=== PATIENT | female | born 1975 | race Caucasian/White ===

== ENCOUNTER → 2017-12-12 09:06 | Outpatient (REF) | payer SELFPAY | LOC: OM 09:06 | PROVIDERS: PCP Physician Assistant Medical; Visit Provider Nurse Practitioner Family | DX: Z23 Encounter for immunization (principal) ==

== ENCOUNTER 2017-12-16 16:08 | Emergency (ER) | payer OTHER, SELFPAY ==
[2017-12-16 16:13] VITALS: BP 117/54; PULSE 67; RESP 16; TEMP 36.6; O2SAT 99
--- NOTE | 2017-12-16 16:40 | DI.REPORT_ITS ---
SYMPTOM/DIAGNOSIS: HYPEREXTENSION INJURY LEFT THUMB No fracture or dislocation is seen. There are mild degenerative changes of the interphalangeal joints of the thumb. IMPRESSION: No acute abnormality.
--- NOTE | 2017-12-16 16:40 | ED.GENADUL ---
Disposition Clinical Impression: Thumb sprain Disposition: HOME Condition: Fair Instructions: Finger Sprain (ED) Additional Instructions: Encourage rest, ice, elevation. Tylenol and/or ibuprofen as needed for discomfort. Use thumb spica while pain persists. Please follow-up with primary care in 1 week for reevaluation. If you develop new or worsening symptoms seek care urgently once again. Referrals: Casey Price PA [Primary Care Provider] - Forms: Work Release Medical Decision Making - Radiology Data Radiology results: report reviewed X-ray reviewed by radiologist. 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 No acute fracture. No dislocation. Mild soft tissue swelling. No radiopaque foreign body. - Medical Decision Making Patient presents today with chief complaint of left thumb pain after suffering a hyperextension injury while at work. On exam, she is having discomfort with palpation of the MCP joint and proximal to this for the metacarpal. Did not see any discoloration or swelling. She is good range of motion. Ligamentously intact on exam. Sensation is intact. Patient is declining any analgesics at this time. She did take ibuprofen prior to arrival. Will obtain radiographic images to evaluate for possible fracture. X-ray reviewed by radiologist. No acute abnormality is noted. I discussed these findings with the patient. Patient will be placed in a thumb spica to help with discomfort. Encourage rest, ice, elevation. Tylenol and/or ibuprofen as needed for discomfort. Advised that this is a strain. We discussed new/worsening symptoms when to seek care urgently once again. She will follow-up with primary care in 1-2 weeks if symptoms persist. All of her questions and concerns were addressed and she is in agreement this plan. We discussed activities that she should avoid that may cause increased pain. Note for work was given. History of Present Illness - General Chief complaint: Orthopedic Stated complaint: LEFT THUMB INJURY Time Seen by Provider: 12/16/17 16:39 Source: patient, family, RN notes reviewed Mode of arrival: ambulatory Limitations: no limitations - History of Present Illness Initial comments: Patient is a 42-year-old [id number] female presenting today with chief complaint left thumb pain. 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 States that the patient pulled the thumb backwards towards the radius. She denies any altered sensation. Denies other injury the time the incident. Denies any pain in the rest. States the pain is primarily along the base of the thumb extending up towards the wrist. Was given ibuprofen prior to arrival. Is declining any analgesics at this time. - Related Data Citalopram Hydrobromide [Celexa] 40 mg PO DAILY 07/16/12 Clonazepam [Klonopin] 0.5 mg PO PRN PRN 07/16/12 Bupropion HCl [Wellbutrin Sr] 100 mg PO DAILY 02/18/13 Omeprazole [PriLOSEC Otc] 20 mg PO DAILY 04/13/13 Atenolol [Tenormin] 25 mg PO DAILY 11/13/13 Lisinopril 5 mg PO DAILY 06/06/16 Ibuprofen 400 mg PO Q6H PRN tab-cap 09/04/16 Metformin HCl [Glucophage Xr] 500 mg PO HS 09/04/16 Ondansetron [Zofran Odt] 4 mg PO Q6H #12 tab.rapdis 11/23/17 Polyethylene Glycol 3350 [Miralax] 17 gm PO DIRECTED #1 bottle 11/28/17 Pramoxine/Hc Acetate [Proctofoam-Hc Foam] 1 applic NM TID PRN PRN #1 can 11/28/17 Psyllium Husk/Aspartame [Metamucil Sugar-Free Powder] 1 tbs PO DAILY #1 bottle 11/28/17 Allergies Allergy/AdvReac Type Severity Reaction Status Date / Time azithromycin Allergy Intermediate Hives Unverified 11/26/17 16:00 latex Allergy Intermediate Skin Rash Unverified 11/26/17 16:00 adhesive Allergy Mild Hives Unverified 11/26/17 16:00 amoxicillin trihydrate AdvReac Intermediate itching Unverified 11/26/17 16:00 [From Augmentin] potassium clavulanate AdvReac Intermediate itching Unverified 11/26/17 16:00 [From Augmentin] Review of Systems Constitutional: no symptoms reported. denies: chills, fever Respiratory: no symptoms reported Musculoskeletal: as per HPI Skin: as per HPI Neurological: as per HPI Past Medical History - Past Medical History Medical history: GERD, hypertension pre-diabetes, diverticulitis Surgical history: cholecystectomy, hysterectomy, other (knee surgery) Family history: no significant family history - Social History Alcohol use: occasionally Drug use: none General Exam - General Limitations: no limitations General appearance: alert, in no apparent distress - Eye Eye exam: Present: normal apperance - Respiratory Respiratory exam: Absent: respiratory distress - Extremities Exam Extremities exam: Present: full ROM, tenderness, normal capillary refill. Absent: normal inspection (Exam the patient's left upper extremity is significant for pain with palpation over the MCP joint and along the first metacarpal. No snuffbox tenderness. No pain more distal on the thumb with palpation. She has good range of motion of her joints. Good strength testing against resistance. Negative Dion's test. No pain with movement of the wrist. Sensation is intact. No swelling or discoloration is noted.) - Neurological Exam Neurological exam: Present: alert, normal gait. Absent: motor sensory deficit - Psychiatric Psychiatric exam: Present: normal affect, normal mood - Skin Skin exam: Present: warm, dry, normal color Course Vital Signs - 24 hr 12/16/17 16:13 Temperature 36.6 C Pulse 67 Respiratory 16 Rate Blood Pressure 117/54 Pulse Oximetry 99
--- NOTE | 2017-12-16 17:11 | DI.VRAD_ITS ---
EXAM: XR Left Finger(s), 2 or More Views CLINICAL HISTORY: 42 years old, female; Pain; Finger(s); Left; Patient HX: Lt thumb pain after hyperextension injury. TECHNIQUE: Frontal, lateral and oblique views of finger(s) of the left hand. COMPARISON: CR - LEFT HAND LIMITED 2016-08-18 08:53 FINDINGS: Bones/joints: Mild degenerative arthrosis of the thumb interphalangeal joint. No acute fracture. No dislocation. Soft tissues: Mild swelling of the thumb soft tissues. No radiopaque foreign body. IMPRESSION: No fracture. Dictated and Authenticated by: Doe Denson MD. Ordering:PARVEEN SPARKS MD
== END 2017-12-16 18:00 | disposition home or self-care (01) ==
LOC: ER 12-07 23:41
PROVIDERS: Emergency Provider Physician Assistant; PCP Physician Assistant Medical
DX: S63.642A Sprain of metacarpophalangeal joint of left thumb, initial encounter (principal); X50.1XXA Overexertion from prolonged static or awkward postures, initial encounter; Y99.0 Civilian activity done for income or pay; I10 Essential (primary) hypertension
CPT/HCPCS: 29125; 99284; 73140; 99282; L3807

== ENCOUNTER 2018-01-25 07:12 | Emergency (ER) | payer SELFPAY ==
[2018-01-25 07:21] VITALS: BP 181/96; PULSE 99; RESP 22; TEMP 36.5; O2SAT 95
[2018-01-25 07:29] VITALS: RESP 22
--- NOTE | 2018-01-25 08:10 | W.ED.GENAD ---
Discharge Plan Disposition Patient Disposition: HOME Discharge Details Chief Complaint: GenMedical Clinical Impression: Viral illness Primary Care Provider: Casey Price ED Provider: Burton Mackey Home Meds and New Rx's Prescriptions: Continue metformin [Glucophage XR] 500 MG tablet extended release 24 hr 500 mg PO HS RF: 0 citalopram [Celexa] 40 MG tablet 40 mg PO DAILY RF: 0 clonazepam [Klonopin] 0.5 MG tablet 0.5 mg PO PRN PRNRF: 0 bupropion HCl [Wellbutrin SR] 100 MG tablet extended release 12 hr 100 mg PO DAILY RF: 0 omeprazole magnesium [Prilosec OTC] 20 MG tablet,delayed release (DR/EC) 20 mg PO DAILY RF: 0 atenolol 25 MG tablet 25 mg PO DAILY RF: 0 lisinopril 5 MG tablet 5 mg PO DAILY RF: 0 hydrocortisone-pramoxine [Proctofoam HC] 10 GM foam 1 applic HI TID PRN PRN (Reason: Hemorrhoids) Qty: 1 RF: 3 psyllium husk (aspartame) [Metamucil Sugar-Free (aspart)] 283 GM powder 1 tbs PO DAILY Qty: 1 RF: 6 Discharge Instructions Instructions: Viral Syndrome (ED) Additional Instructions: Please take your medications as prescribed. Be sure to take her blood pressure medicine today as soon as you get home. Plenty of fluid and allow for plenty of rest of the next few days. Take ibuprofen and/or Tylenol --dose according to label. Please contact your primary care physician to arrange follow-up. Return to the ER for any worsening or new concerning symptoms. Referrals: Casey Price PA [Primary Care Provider] - Discharge Data Discharge Date/Time-TO BE ENTERED AT DEPARTURE: 01/25/18 08:47 Medical Decision Making 42-year-old female here myalgias, chills, sore throat, sinus congestion, diarrhea. No signs of focal bacterial infection on exam. Suspect viral illness. Encouraged to drink plenty of fluids and allow for plenty of rest. She was advised to take Tylenol and ibuprofen. Patient is hypertensive. She has not taken her prescribed antihypertensives today. She was instructed to take these when she gets home. HPI General Mode of arrival: ambulatory. Date/Time Provider Initiated Documentation: 01/25/18 08:09. Limitations to Documentation: no limitations. Information obtained by: patient. HPI Narrative: 42yo f here with chief complaint of generally not feeling well. Symptoms moderate to severe. No modifiers. Patient notes myalgias, diffuse body, sore throat, sinus congestion, chills, diarrhea. Symptoms have persisted for the past 3 days. Denies cough. Patient requesting work note. Patient did not take antihypertensive medication today. Related Data Home Medications Medication Instructions Recorded Confirmed citalopram [Celexa] 40 mg PO DAILY 07/16/12 01/25/18 clonazepam [Klonopin] 0.5 mg PO PRN PRN 07/16/12 12/16/17 bupropion HCl [Wellbutrin SR] 100 mg PO DAILY 02/18/13 01/25/18 omeprazole magnesium [Prilosec OTC] 20 mg PO DAILY 04/13/13 01/25/18 atenolol 25 mg PO DAILY 11/13/13 01/25/18 lisinopril 5 mg PO DAILY 06/06/16 01/25/18 metformin [Glucophage XR] 500 mg PO HS 09/04/16 01/25/18 hydrocortisone-pramoxine 1 applic HI TID PRN PRN #1 can 11/28/17 01/25/18 [Proctofoam HC] psyllium husk (aspartame) 1 tbs PO DAILY #1 bottle 11/28/17 01/25/18 [Metamucil Sugar-Free (aspart)] Previous Rx's Medication Instructions Recorded hydrocortisone-pramoxine 1 applic HI TID PRN PRN #1 can 11/28/17 [Proctofoam HC] psyllium husk (aspartame) 1 tbs PO DAILY #1 bottle 11/28/17 [Metamucil Sugar-Free (aspart)] Allergies Allergy/AdvReac Type Severity Reaction Status Date / Time azithromycin Allergy Intermediate Hives Unverified 11/26/17 16:00 latex Allergy Intermediate Skin Rash Unverified 11/26/17 16:00 adhesive Allergy Mild Hives Unverified 11/26/17 16:00 amoxicillin trihydrate AdvReac Intermediate itching Unverified 11/26/17 16:00 [From Augmentin] potassium clavulanate AdvReac Intermediate itching Unverified 11/26/17 16:00 [From Augmentin] General Stated Complaint: GenMedical KARI: 4 Review of Systems Review of Systems All systems reviewed & are unremarkable except as noted in HPI and below ENT Reports as per HPI Respiratory Reports system reviewed and no additional complaints, except as docu PFSH Medical History Anxiety Cholesteatoma of left ear DM (diabetes mellitus), type 2 Depression Essential hypertension Neck pain on right side Ovarian cyst Shoulder pain, right Syncope Social History Smoking/Tobacco Use Status: Former Tobacco Use Surgical History Arthroplasty of knee Cholecystectomy Vaginal hysterectomy Exam Const General: cooperative and no acute distress HENMT Head: normocephalic and atraumatic Mouth: moist mucous membranes Throat: tonsils normal, uvula midline, no peritonsillar masses and posterior oropharynx abnormal erythema; no edema and no exudates Eyes Conjunctivae: normal conjunctivae Sclera: normal sclerae EOM: EOM intact bilaterally Neck Neck: trachea midline and supple Resp Auscultation: clear to auscultation bilaterally, no rales, no rhonchi and no wheezes Cardio Jugular venous pressure: no JVD Rate: regular rate and not tachycardic Rhythm: regular rhythm GI Palpation: soft, not firm, no guarding, no masses, not rigid and nontender Skin General skin exam: no rashes or lesions noted Neuro General: alert, awake, oriented x3 and tone normal Extrem General: no edema Psych Appearance: grossly normal Mental Status: mental status grossly normal Speech and Movement: speech and movement normal Course Vital Signs Temperature 36.5 C 01/25/18 07:21 Pulse 99 H 01/25/18 07:21 Respiratory Rate 22 01/25/18 07:21 Blood Pressure 181/96 H 01/25/18 07:21 Pulse Oximetry 95 01/25/18 07:21 Temperature 36.5 C 01/25/18 07:21 Pulse 99 H 01/25/18 07:21 Respiratory Rate 22 01/25/18 07:29 Blood Pressure 181/96 H 01/25/18 07:21 Pulse Oximetry 95 01/25/18 07:21
--- NOTE | 2018-01-25 08:37 | ED.GENADUL_ITS ---
Discharge Plan Disposition Patient Disposition: HOME Discharge Details Chief Complaint: GenMedical Clinical Impression: Viral illness Primary Care Provider: Casey Price ED Provider: Burton Mackey Home Meds and New Rx's Prescriptions: Continue metformin [Glucophage XR] 500 MG tablet extended release 24 hr 500 mg PO HS RF: 0 citalopram [Celexa] 40 MG tablet 40 mg PO DAILY RF: 0 clonazepam [Klonopin] 0.5 MG tablet 0.5 mg PO PRN PRNRF: 0 bupropion HCl [Wellbutrin SR] 100 MG tablet extended release 12 hr 100 mg PO DAILY RF: 0 omeprazole magnesium [Prilosec OTC] 20 MG tablet,delayed release (DR/EC) 20 mg PO DAILY RF: 0 atenolol 25 MG tablet 25 mg PO DAILY RF: 0 lisinopril 5 MG tablet 5 mg PO DAILY RF: 0 hydrocortisone-pramoxine [Proctofoam HC] 10 GM foam 1 applic [place] TID PRN PRN (Reason: Hemorrhoids) Qty: 1 RF: 3 psyllium husk (aspartame) [Metamucil Sugar-Free (aspart)] 283 GM powder 1 tbs PO DAILY Qty: 1 RF: 6 Discharge Instructions Instructions: Viral Syndrome (ED) Additional Instructions: Please take your medications as prescribed. Be sure to take her blood pressure medicine today as soon as you get home. Plenty of fluid and allow for plenty of rest of the next few days. Take ibuprofen and/or Tylenol --dose according to label. Please contact your primary care physician to arrange follow-up. Return to the ER for any worsening or new concerning symptoms. Referrals: Casey Price PA [Primary Care Provider] - Discharge Data Discharge Date/Time-TO BE ENTERED AT DEPARTURE: 01/25/18 08:47 Medical Decision Making 42-year-old female here myalgias, chills, sore throat, sinus congestion, diarrhea. No signs of focal bacterial infection on exam. Suspect viral illness. Encouraged to drink plenty of fluids and allow for plenty of rest. She was advised to take Tylenol and ibuprofen. Patient is hypertensive. She has not taken her prescribed antihypertensives today. She was instructed to take these when she gets home. HPI General Mode of arrival: ambulatory . Date/Time Provider Initiated Documentation: 01/25/18 08:09 . Limitations to Documentation: no limitations . Information obtained by: patient . HPI Narrative: 42yo f here with chief complaint of generally not feeling well. Symptoms moderate to severe. No modifiers. Patient notes myalgias, diffuse body , sore throat, sinus congestion, chills, diarrhea. Symptoms have persisted for the past 3 days. Denies cough. Patient requesting work note. Patient did not take antihypertensive medication today. Related Data Home Medications Medication Instructions Recorded Confirmed citalopram [Celexa] 40 mg PO DAILY 07/16/12 01/25/18 clonazepam [Klonopin] 0.5 mg PO PRN PRN 07/16/12 12/16/17 bupropion HCl [Wellbutrin SR] 100 mg PO DAILY 02/18/13 01/25/18 omeprazole magnesium [Prilosec OTC] 20 mg PO DAILY 04/13/13 01/25/18 atenolol 25 mg PO DAILY 11/13/13 01/25/18 lisinopril 5 mg PO DAILY 06/06/16 01/25/18 metformin [Glucophage XR] 500 mg PO HS 09/04/16 01/25/18 hydrocortisone-pramoxine 1 applic [place] TID PRN PRN #1 can 11/28/17 01/25/18 [Proctofoam HC] psyllium husk (aspartame) 1 tbs PO DAILY #1 bottle 11/28/17 01/25/18 [Metamucil Sugar-Free (aspart)] Previous Rx's Medication Instructions Recorded hydrocortisone-pramoxine 1 applic MI TID PRN PRN #1 can 11/28/17 [Proctofoam HC] psyllium husk (aspartame) 1 tbs PO DAILY #1 bottle 11/28/17 [Metamucil Sugar-Free (aspart)] Allergies Allergy/AdvReac Type Severity Reaction Status Date / Time azithromycin Allergy Intermediate Hives Unverified 11/26/17 16:00 latex Allergy Intermediate Skin Rash Unverified 11/26/17 16:00 adhesive Allergy Mild Hives Unverified 11/26/17 16:00 amoxicillin trihydrate AdvReac Intermediate itching Unverified 11/26/17 16:00 [From Augmentin] potassium clavulanate AdvReac Intermediate itching Unverified 11/26/17 16:00 [From Augmentin] General Stated Complaint: GenMedical KARI: 4 Review of Systems Review of Systems All systems reviewed & are unremarkable except as noted in HPI and below ENT Reports as per HPI Respiratory Reports system reviewed and no additional complaints, except as docu PFSH Medical History Anxiety Cholesteatoma of left ear DM (diabetes mellitus), type 2 Depression Essential hypertension Neck pain on right side Ovarian cyst Shoulder pain, right Syncope Social History Smoking/Tobacco Use Status: Former Tobacco Use Surgical History Arthroplasty of knee Cholecystectomy Vaginal hysterectomy Exam Const General: cooperative and no acute distress HENMT Head: normocephalic and atraumatic Mouth: moist mucous membranes Throat: tonsils normal, uvula midline, no peritonsillar masses and posterior oropharynx abnormal erythema; no edema and no exudates Eyes Conjunctivae: normal conjunctivae Sclera: normal sclerae EOM: EOM intact bilaterally Neck Neck: trachea midline and supple Resp Auscultation: clear to auscultation bilaterally, no rales, no rhonchi and no wheezes Cardio Jugular venous pressure: no JVD Rate: regular rate and not tachycardic Rhythm: regular rhythm GI Palpation: soft, not firm, no guarding, no masses, not rigid and nontender Skin General skin exam: no rashes or lesions noted Neuro General: alert, awake, oriented x3 and tone normal Extrem General: no edema Psych Appearance: grossly normal Mental Status: mental status grossly normal Speech and Movement: speech and movement normal Course Vital Signs Temperature 36.5 C 01/25/18 07:21 Pulse 99 H 01/25/18 07:21 Respiratory Rate 22 01/25/18 07:21 Blood Pressure 181/96 H 01/25/18 07:21 Pulse Oximetry 95 01/25/18 07:21 Temperature 36.5 C 01/25/18 07:21 Pulse 99 H 01/25/18 07:21 Respiratory Rate 22 01/25/18 07:29 Blood Pressure 181/96 H 01/25/18 07:21 Pulse Oximetry 95 01/25/18 07:21
[2018-01-25] MEDS: Ibuprofen 600 MG TAB PO (08:45)
[2018-01-25] MEDS: Acetaminophen 325 MG TAB 650 MG PO (08:45)
== END 2018-01-25 08:47 | disposition home or self-care (01) ==
PROVIDERS: Emergency Provider Student in an Organized Health Care Education/Training Program; PCP Physician Assistant Medical
DX: M79.1 Myalgia (principal); R68.83 Chills (without fever); R09.81 Nasal congestion; B34.9 Viral infection, unspecified; J02.8 Acute pharyngitis due to other specified organisms; E11.9 Type 2 diabetes mellitus without complications; Z79.84 Long term (current) use of oral hypoglycemic drugs; I10 Essential (primary) hypertension
CPT/HCPCS: 80053; 99282; 85025

== ENCOUNTER 2018-02-03 20:40 | Emergency (ER) | payer OTHER, SELFPAY ==
[2018-02-03 20:49] VITALS: BP 134/73; PULSE 70; RESP 20; TEMP 37.1; O2SAT 94
--- NOTE | 2018-02-03 21:16 | ED.GENADUL_ITS ---
Discharge Plan Disposition Patient Disposition: HOME Condition: Stable Discharge Details Chief Complaint: RespSymp Clinical Impression: Acute sinusitis, Cough, Laryngitis Primary Care Provider: Casey Price ED Provider: Nova Ennis Home Meds and New Rx's Prescriptions: New doxycycline monohydrate 100 mg capsule 100 mg PO BID 7 Days Qty: 14 RF: 0 No Action metformin [Glucophage XR] 500 MG tablet extended release 24 hr 500 mg PO HS RF: 0 citalopram [Celexa] 40 MG tablet 40 mg PO DAILY RF: 0 clonazepam [Klonopin] 0.5 MG tablet 0.5 mg PO PRN PRNRF: 0 bupropion HCl [Wellbutrin SR] 100 MG tablet extended release 12 hr 100 mg PO DAILY RF: 0 omeprazole magnesium [Prilosec OTC] 20 MG tablet,delayed release (DR/EC) 20 mg PO DAILY RF: 0 atenolol 25 MG tablet 25 mg PO DAILY RF: 0 lisinopril 5 MG tablet 5 mg PO DAILY RF: 0 hydrocortisone-pramoxine [Proctofoam HC] 10 GM foam 1 applic MI TID PRN PRN (Reason: Hemorrhoids) Qty: 1 RF: 3 psyllium husk (aspartame) [Metamucil Sugar-Free (aspart)] 283 GM powder 1 tbs PO DAILY Qty: 1 RF: 6 Discharge Instructions Instructions: Sinusitis (ED), Laryngitis (ED), Acute Cough (ED) Additional Instructions: Drink plenty of fluids and get plenty of rest. Alternate Tylenol and Motrin as needed and directed for pain. Follow-up with your scheduled appointment with your primary care doctor in 2 days for reevaluation. Return to the emergency department any worsening or new concerning symptoms. Discharge Data Discharge Physician: Nova Ennis Medical Decision Making 42yo F with a history of diabetes, GERD who presents for green nasal discharge, cough with green sputum, chest congestion, sinus congestion, sore throat and losing voice over the past 12 days. Seen here 1 week ago and diagnosed with viral illness and given no meds. Has been taking Sudafed and Robitussin without relief. Normal heart rate, respirations, afebrile, oxygen saturation 94%. Patient appears nontoxic and in no acute distress. Airway intact and speaking in full sentences. Lungs clear to auscultation without wheezing or rhonchi. She has bilateral frontal and maxillary sinus tenderness to palpation. Pharynx normal. No lymphadenopathy. No submandibular swelling, drooling. No meningeal signs. Appears most likely consistent with sinusitis, with postnasal drip causing possible chest congestion, laryngitis. Will give a dose of doxycycline and Decadron here, 2 doses of Robitussin with codeine for home, and as well as a prescription for doxycycline. She has a follow-up appointment with her primary care doctor in 2 days. She is instructed to keep this appointment for reevaluation and to return here if worse. HPI General Mode of arrival: ambulatory . Date/Time Provider Initiated Documentation: 02/03/18 20:41 . Limitations to Documentation: no limitations . Information obtained by: patient . HPI Narrative: Patient is a 42-year-old female presents with green nasal discharge, productive cough with green sputum, chest congestion, sinus congest and sore throat, hoarse voice over the past 10-12 days. Patient states the sinus congestion is bothering her the most. She states she was here last Sunday and diagnosed with viral illness and not sent home with any medications. She admits to occasional chills but denies any fever. She denies neck pain or shortness of breath. She denies any recent antibiotics. She states her sugars have been between 150 and 170. She states she has been eating and drinking but slightly less than usual since she has been sick. She denies any relief with Sudafed and Robitussin. Past medical history: Anxiety, diabetes, depression, hypertension, GERD. Surgical history: Knee arthroscopy, cholecystectomy, hysterectomy Social history: Occasional alcohol, denies tobacco or drugs Medications: See list Allergies: Azithromycin. Potassium clavulante, states she has tolerated amoxicillin in the past Related Data Home Medications Medication Instructions Recorded Confirmed citalopram [Celexa] 40 mg PO DAILY 07/16/12 01/25/18 clonazepam [Klonopin] 0.5 mg PO PRN PRN 07/16/12 12/16/17 bupropion HCl [Wellbutrin SR] 100 mg PO DAILY 02/18/13 01/25/18 omeprazole magnesium [Prilosec OTC] 20 mg PO DAILY 04/13/13 01/25/18 atenolol 25 mg PO DAILY 11/13/13 01/25/18 lisinopril 5 mg PO DAILY 06/06/16 01/25/18 metformin [Glucophage XR] 500 mg PO HS 09/04/16 01/25/18 hydrocortisone-pramoxine 1 applic MI TID PRN PRN #1 can 11/28/17 01/25/18 [Proctofoam HC] psyllium husk (aspartame) 1 tbs PO DAILY #1 bottle 11/28/17 01/25/18 [Metamucil Sugar-Free (aspart)] doxycycline monohydrate 100 mg PO BID 7 Days #14 cap 02/03/18 Previous Rx's Medication Instructions Recorded hydrocortisone-pramoxine 1 applic MI TID PRN PRN #1 can 11/28/17 [Proctofoam HC] psyllium husk (aspartame) 1 tbs PO DAILY #1 bottle 11/28/17 [Metamucil Sugar-Free (aspart)] doxycycline monohydrate 100 mg PO BID 7 Days #14 cap 02/03/18 Allergies Allergy/AdvReac Type Severity Reaction Status Date / Time azithromycin Allergy Intermediate Hives Unverified 11/26/17 16:00 latex Allergy Intermediate Skin Rash Unverified 11/26/17 16:00 adhesive Allergy Mild Hives Unverified 11/26/17 16:00 amoxicillin trihydrate AdvReac Intermediate itching Unverified 11/26/17 16:00 [From Augmentin] potassium clavulanate AdvReac Intermediate itching Unverified 11/26/17 16:00 [From Augmentin] General Stated Complaint: RespSymp KARI: 4 Review of Systems Review of Systems All systems reviewed & are unremarkable except as noted in HPI and below Constitutional Reports chills, Denies excessive sweating, Denies fatigue, Denies fever(s), Denies weakness and Denies weight loss Eyes Reports system reviewed and no additional complaints, except as docu and Denies blurry vision ENT Denies vertigo, Denies dizziness, Denies otalgia, Reports nasal congestion, Reports nasal discharge, Denies neck pain, Reports sinus pain, Reports sinus pressure, Reports sore throat and Denies throat swelling Cardiovascular Denies chest pain, Denies syncope, Denies rapid heart rate and Denies dyspnea Respiratory Denies dyspnea Gastrointestinal Denies abdominal pain, Denies diarrhea and Denies vomiting Genitourinary Denies hematuria, Denies dysuria and Denies flank pain Musculoskeletal Denies back pain, Denies joint swelling and Denies neck pain Integumentary/Breasts Denies lesions and Denies rash Neurologic Denies behavioral changes, Denies confusion, Denies vertigo, Denies dizziness, Denies syncope and Denies weakness Psychiatric Denies behavioral changes, Denies confusion and Denies depression Endocrine Denies excessive sweating and Denies fatigue Hematologic/Lymphatic Denies easy bruising and Denies lymphadenopathy Allergic/Immunologic Denies throat swelling [facility] Medical History Anxiety Cholesteatoma of left ear DM (diabetes mellitus), type 2 Depression Essential hypertension Neck pain on right side Ovarian cyst Shoulder pain, right Syncope Social History Smoking/Tobacco Use Status: Former Tobacco Use Surgical History Arthroplasty of knee Cholecystectomy Vaginal hysterectomy Exam Const General: cooperative and no acute distress Orientation: alert and awake HENMT Head: normal to inspection Ears: hearing grossly normal bilaterally, external ears normal and TM's normal bilaterally General nose exam: external nose normal Face and sinus: sinus tenderness frontal and maxillary Mouth: oral mucosae normal Teeth and gingiva: dentition normal Throat: posterior oropharynx normal, uvula midline, normal tonsils and no peritonsillar masses Eyes General: appearance normal, both eyes and all related structures Eyelids: eyelids normal Conjunctivae: other (mild injection b/l. No discharge) Pupils: PERRL EOM: EOM intact bilaterally Neck Neck: normal visual inspection Lymphatic: no lymphadenopathy noted Chest Chest: normal inspection of the chest Resp Effort & Inspection: normal respiratory effort and able to speak in complete sentences Auscultation: clear to auscultation bilaterally, no rhonchi and no wheezes Cardio Rate: regular rate Rhythm: regular rhythm GI Inspection: normal to inspection Skin General skin exam: no rashes or lesions noted Neuro General: alert and awake Cognition: normal cognition Speech: speech normal Gait: normal gait Motor: muscle tone normal throughout Sensory Exam: no sensory deficits noted Extrem General: normal to inspection, full ROM, normal capillary refill and no edema Psych Appearance: grossly normal Mental Status: mental status grossly normal Speech and Movement: speech and movement normal Affect: normal affect Thought Process: normal Course Vital Signs Temperature 98.8 F 02/03/18 20:49 Pulse 70 02/03/18 20:49 Respiratory Rate 20 02/03/18 20:49 Blood Pressure 134/73 02/03/18 20:49 Pulse Oximetry 94 L 02/03/18 20:49 Temperature 98.8 F 02/03/18 20:49 Temperature Source Temporal Artery Scan 02/03/18 20:49 Pulse 70 02/03/18 20:49 Respiratory Rate 20 02/03/18 20:49 Respiratory Effort Labored 02/03/18 20:52 Respiratory Depth Shallow 02/03/18 20:52 Blood Pressure 134/73 02/03/18 20:49 Blood Pressure Position Supine 02/03/18 20:49 Pulse Oximetry 94 L 02/03/18 20:49 Oxygen Delivery Method Room Air 02/03/18 20:49 Oxygen Flow Rate 0 02/03/18 20:49 Pain Level 5 02/03/18 20:49
[2018-02-03] MEDS: guaiFENesin/CODEINE PHOSPHATE 10 ML CUP PO (21:29)
[2018-02-03] MEDS: Dexamethasone 10 MG/ML VIAL PO (21:29)
[2018-02-03] MEDS: Doxycycline Hyclate 100 MG CAP PO (21:29)
[2018-02-03 22:02] VITALS: BP 122/80; PULSE 88; RESP 18; TEMP 36.8; O2SAT 99
== END 2018-02-03 22:03 | disposition home or self-care (01) ==
PROVIDERS: Emergency Provider Physician Assistant; PCP Physician Assistant Medical
DX: R05 Cough (principal); J01.90 Acute sinusitis, unspecified; J04.0 Acute laryngitis; I10 Essential (primary) hypertension; E11.9 Type 2 diabetes mellitus without complications; Z79.84 Long term (current) use of oral hypoglycemic drugs
CPT/HCPCS: 99283; J1100

== ENCOUNTER 2018-03-05 12:29 | Emergency (ER) | payer OTHER, SELFPAY ==
[2018-03-05 12:40] VITALS: BP 153/99; PULSE 77; RESP 16; TEMP 36.7; O2SAT 97
--- NOTE | 2018-03-05 12:47 | ED.GENADUL_ITS ---
Discharge Plan Disposition Patient Disposition: HOME Condition: Good Discharge Details Chief Complaint: Nk/Back Pain Clinical Impression: Lumbar strain Primary Care Provider: Casey Price ED Provider: Jarret Brown Home Meds and New Rx's Prescriptions: New cyclobenzaprine 10 mg tablet 10 mg PO TID PRN (Reason: muscle spasm) Qty: 20 RF: 0 gabapentin 300 mg capsule 300 mg PO TID 10 Days Qty: 30 RF: 0 Continue metformin [Glucophage XR] 500 MG tablet extended release 24 hr 500 mg PO HS RF: 0 citalopram [Celexa] 40 MG tablet 40 mg PO DAILY RF: 0 clonazepam [Klonopin] 0.5 MG tablet 0.5 mg PO PRN PRNRF: 0 bupropion HCl [Wellbutrin SR] 100 MG tablet extended release 12 hr 150 mg PO DAILY RF: 0 omeprazole magnesium [Prilosec OTC] 20 MG tablet,delayed release (DR/EC) 20 mg PO DAILY RF: 0 atenolol 25 MG tablet 25 mg PO DAILY RF: 0 lisinopril 5 MG tablet 5 mg PO DAILY RF: 0 hydrocortisone-pramoxine [Proctofoam HC] 10 GM foam 1 applic GA TID PRN PRN (Reason: Hemorrhoids) Qty: 1 RF: 3 psyllium husk (aspartame) [Metamucil Sugar-Free (aspart)] 283 GM powder 1 tbs PO DAILY Qty: 1 RF: 6 Discharge Instructions Instructions: Low Back Strain (ED) Additional Instructions: you can take 1000mg tylenol and 600mg ibuprofen every 6 hours for pain as needed if you have high fevers or difficulty urinating return to the emergency department follow up with your primary care provider within 1-2 weeks Discharge Data Discharge Physician: Jarret Brown Medical Decision Making 42 yo female comes in with left lower back pain since Sunday morning. 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 She dneies any trauma, noticed pain when she was getting out of bed on Sunday with shooting pain down the left leg. Denies fevers, ivdu, back surgeries, difficulty urinating. SHe has no saddle anesthesia on exam, pain with palpation to the left lower back with normal intact distal sensation and pulses. I suspect lumbar strain vs muscle spasm vs disc herniation. No evidence of cauda equina or sea on hx or PE so do not feel emergent MRI indicated and no abdominal pain so doubt intrabdominal pathology requiring ct imaging at this time. Will start muscle relaxers and gabapentin and advised f/u with pcp with return precautions Differential Diagnosis lumbar strain, sciatica, disc herniation HPI General Mode of arrival: ambulatory . Date/Time Provider Initiated Documentation: 03/05/18 12:32 . Limitations to Documentation: no limitations . Information obtained by: patient . History of Present Illness 42 year old F presents to the emergency department with the chief complaint of back pain, described as moderate, with intensity rated at 6. Quality is described as aching, and is localized to the back and left. Patient reports no radiation. Patient started experiencing this day(s) (2) and it has been constant. No relieving factors improve symptom(s), No exacerbating factors reported . Patient notes no other symptoms.. Patient did receive the following treatments prior to arrival, NSAID Related Data Home Medications Medication Instructions Recorded Confirmed citalopram [Celexa] 40 mg PO DAILY 07/16/12 03/05/18 clonazepam [Klonopin] 0.5 mg PO PRN PRN 07/16/12 03/05/18 bupropion HCl [Wellbutrin SR] 150 mg PO DAILY 02/18/13 03/05/18 omeprazole magnesium [Prilosec OTC] 20 mg PO DAILY 04/13/13 03/05/18 atenolol 25 mg PO DAILY 11/13/13 03/05/18 lisinopril 5 mg PO DAILY 06/06/16 03/05/18 metformin [Glucophage XR] 500 mg PO HS 09/04/16 03/05/18 hydrocortisone-pramoxine 1 applic GA TID PRN PRN #1 can 11/28/17 01/25/18 [Proctofoam HC] psyllium husk (aspartame) 1 tbs PO DAILY #1 bottle 11/28/17 03/05/18 [Metamucil Sugar-Free (aspart)] cyclobenzaprine 10 mg PO TID PRN #20 tab 03/05/18 gabapentin 300 mg PO TID 10 Days #30 cap 03/05/18 Previous Rx's Medication Instructions Recorded hydrocortisone-pramoxine 1 applic GA TID PRN PRN #1 can 11/28/17 [Proctofoam HC] psyllium husk (aspartame) 1 tbs PO DAILY #1 bottle 11/28/17 [Metamucil Sugar-Free (aspart)] cyclobenzaprine 10 mg PO TID PRN #20 tab 03/05/18 gabapentin 300 mg PO TID 10 Days #30 cap 03/05/18 Allergies Allergy/AdvReac Type Severity Reaction Status Date / Time azithromycin Allergy Intermediate Hives Unverified 03/05/18 12:43 latex Allergy Intermediate Skin Rash Unverified 03/05/18 12:43 adhesive Allergy Mild Hives Unverified 03/05/18 12:43 amoxicillin trihydrate AdvReac Intermediate itching Unverified 03/05/18 12:43 [From Augmentin] potassium clavulanate AdvReac Intermediate itching Unverified 03/05/18 12:43 [From Augmentin] General Stated Complaint: Nk/Back Pain KARI: 4 Review of Systems Review of Systems All systems reviewed & are unremarkable except as noted in HPI and below Constitutional Denies chills, Denies fever(s) and Denies weakness Eyes Denies loss of vision ENT Denies change in voice Cardiovascular Denies chest pain and Denies dyspnea Respiratory Denies dyspnea Gastrointestinal Denies abdominal pain, Denies nausea and Denies vomiting Genitourinary Denies dysuria Musculoskeletal Denies joint swelling Integumentary/Breasts Denies rash Neurologic Denies loss of vision and Denies weakness Psychiatric Denies depression Endocrine Denies cold intolerance and Denies heat intolerance Allergic/Immunologic Denies urticaria [facility] Medical History Anxiety Cholesteatoma of left ear DM (diabetes mellitus), type 2 Depression Essential hypertension Neck pain on right side Ovarian cyst Shoulder pain, right Syncope Social History Smoking/Tobacco Use Status: Former Tobacco Use Surgical History Arthroplasty of knee Cholecystectomy Vaginal hysterectomy Exam Const General: no acute distress Orientation: alert HENMT Head: normal to inspection Ears: external ears normal General nose exam: external nose normal Mouth: moist mucous membranes Eyes General: appearance normal, both eyes and all related structures Neck Neck: normal visual inspection Resp Effort & Inspection: normal respiratory effort and able to speak in complete sentences Cardio Rate: regular rate Back/Spine/Pelvis Back: no CVA tenderness Thoracic/Lumbar Spine: thoracic and lumbar spine normal to inspection Skin General skin exam: no rashes or lesions noted Neuro General: alert and oriented x3 Extrem General: normal to inspection Psych Mental Status: mental status grossly normal Course Vital Signs Temperature 36.7 C 03/05/18 12:40 Pulse 77 03/05/18 12:40 Respiratory Rate 16 03/05/18 12:40 Blood Pressure 153/99 H 03/05/18 12:40 Pulse Oximetry 97 03/05/18 12:40 Temperature 36.7 C 03/05/18 12:40 Temperature Source Temporal Artery Scan 03/05/18 12:40 Pulse 77 03/05/18 12:40 Respiratory Rate 16 03/05/18 12:40 Blood Pressure 153/99 H 03/05/18 12:40 Blood Pressure Position Sitting 03/05/18 12:40 Pulse Oximetry 97 03/05/18 12:40 Pain Level 9 03/05/18 12:40
[2018-03-05] MEDS: Cyclobenzaprine 10 MG TAB PO (13:10)
== END 2018-03-05 13:16 | disposition home or self-care (01) ==
PROVIDERS: Emergency Provider Emergency Medicine; PCP Physician Assistant Medical
DX: S39.012A Strain of muscle, fascia and tendon of lower back, initial encounter (principal); X50.0XXA Overexertion from strenuous movement or load, initial encounter
CPT/HCPCS: 99283

== ENCOUNTER 2018-07-17 08:29 | Outpatient (CLI) | payer BC, SELFPAY ==
--- NOTE | 2018-07-17 06:00 | DI.RAD_ITS ---
SYMPTOM/DIAGNOSIS: CERVICAL RADICULOPATHY, CERVICAL EPIDURAL STEROID INJECTION C-ARM: Fluoroscopy Time: 31 seconds Images submitted from the pain clinic demonstrate needle position over the midline in the cervical spine in conjunction with an epidural steroid injection carried out by Dr. Bowles. Please see the procedure report for further information.
[2018-07-17 08:51] VITALS: BP 114/86; PULSE 73; RESP 18; TEMP 36; O2SAT 96
[2018-07-17] MEDS: Lactated Ringers 1,000 ML 80 ML IV (09:20)
[2018-07-17] MEDS: Midazolam 2 MG/2 ML VIAL IVP (09:21)
[2018-07-17] MEDS: methylPREDNISolone ACETATE 40 MG/ML VIAL IJ (09:27)
[2018-07-17] MEDS: Omnipaque 240 MG/ML 50 ML BTL IJ (09:28)
[2018-07-17 09:31] VITALS: BP 126/86; PULSE 67; RESP 19; O2SAT 98
--- NOTE | 2018-07-17 09:34 | PDOC.PAIN ---
Pain Clinic Procedure Note Current Active Problems Problem Status Onset Cervical radiculitis Chronic Cervical Epidural Steroid Injection ROSY STONE has been referred to the [facility] for cervical epidural steroid injection. COMMENTS: Patient has neck pain radiating to right upper extremity. She has had 2 cervical epidural injections which both have helped. The first 1 lasted longer. That was with Depo-Medrol the second 1 was with dexamethasone. Patient was interviewed and the medical record reviewed. There were no medical, pharmacologic, radiographic or other structural contraindications to attempting fluoroscopically guided epidural steroid injection. Risks and expected side effects as well as potential benefit of the procedure were reviewed and voiced concerns addressed. The printed consent form was signed and witnessed. Standard time-out procedure was performed. The patient was placed in the prone position on the fluoroscopy table and automated blood pressure cuff and pulse oximeter applied. The skin entry point for entering the epidural space by a midline C7-T1 interlaminar approach was identified under fluoroscopy and marked. Following thorough Chlorhexadine preparation of the skin and draping and 1% lidocaine infiltration of the skin entry point and subcutaneous tissues, an 17 gauge Tuohy needle was placed under fluoroscopic guidance and with loss of resistance technique into the epidural space. Upon needle placement and loss of resistance there were no paresthesiae or return of blood or CSF through the needle. An Arrow catheter was thread cephalad to the C4 level midline. 1ml of Omnipaque 240 were injected with clear epidural spread in the A/P, lateral and oblique views. 80mg Depomedrol with 1ml sterile normal saline were injected through the catheter with no unusual discomfort expressed. Vital signs were stable throughout the procedure and were as recorded in the docflowsheet by the nursing staff. If given, dosages of intravenous drugs for anxiolysis and analgesia were documented in MAR. Follow up plans and appointments were discussed. Post procedure instruction was given as documented in nursing documentation and having met discharge criteria and was discharged from the [facility]. COMMENTS:Versed 2 mg given. She will follow-up as needed. As long as this works and last would repeat as needed CC: Casey Price
== END 2018-07-17 08:49 ==
PROVIDERS: PCP Physician Assistant Medical; Visit Provider Anesthesiology Pain Medicine
DX: M54.12 Radiculopathy, cervical region (principal)
CPT/HCPCS: 62321; 72040; J1030; J2250; Q9967

== ENCOUNTER 2018-09-15 06:37 | Emergency (ER) | payer SELFPAY ==
[2018-09-15 06:40] VITALS: BP 136/76; PULSE 80; RESP 16; TEMP 36.5; O2SAT 96
--- NOTE | 2018-09-15 06:49 | DI.RAD_ITS ---
SYMPTOMS/DIAGNOSIS: ANTERIOR PAIN AFTER LIFTING RIGHT SHOULDER: No fracture or dislocation is seen. The AC joint is not widened. There are minimal degenerative changes at the glenoid. IMPRESSION: No acute abnormality.
--- NOTE | 2018-09-15 06:52 | ED.GENADUL_ITS ---
Discharge Plan Disposition Patient Disposition: HOME Condition: Improving Discharge Details Chief Complaint: Orthopedic Clinical Impression: Right shoulder strain Primary Care Provider: Casey Price ED Provider: Fawad Lopez Home Meds and New Rx's Prescriptions: New tramadol 50 mg tablet 50 mg PO Q6H PRN (Reason: pain) Qty: 10 RF: 0 Continued metformin [Glucophage XR] 500 MG tablet extended release 24 hr 500 mg PO HS RF: 0 citalopram [Celexa] 40 MG tablet 40 mg PO DAILY RF: 0 clonazepam [Klonopin] 0.5 MG tablet 0.5 mg PO PRN PRNRF: 0 bupropion HCl [Wellbutrin SR] 100 MG tablet extended release 12 hr 150 mg PO DAILY RF: 0 Prilosec OTC 20 MG tablet,delayed release (DR/EC) 20 mg PO DAILY RF: 0 atenolol 25 MG tablet 25 mg PO DAILY RF: 0 lisinopril 5 MG tablet 5 mg PO DAILY RF: 0 Metamucil Sugar-Free (aspart) 283 GM powder 1 tbs PO DAILY Qty: 1 RF: 6 Discharge Instructions Additional Instructions: Rest, ice, use of sling to reduce pain and swelling. May continue ibuprofen and/or Tylenol and may also use the prescribed tramadol for severe pain. Do not take this medication with your Klonopin. Follow-up with physical therapy as prescribed. 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 She felt a pop with forced anterior deviation of the humerus. She arrives with normal vital signs, and exam reveals diffusely tender anterior right shoulder. Differential diagnosis includes subluxation, strain, soft tissue injury. Patient referred for x-ray which does not reveal any significant acute pathology. Placed in sling for comfort. She will need to continue to use ice and NSAIDs at home, and will benefit from respite from work. She may benefit from a small number of tramadol. Will make her a follow-up appointment in primary care clinic to ensure that this is not a rotator cuff injury with reexamination in 7 to 10 days time. Left a message with her at home regarding this followup plan. HPI General Mode of arrival: ambulatory . Date/Time Provider Initiated Documentation: 09/15/18 06:44 . Limitations to Documentation: no limitations . Information obtained by: patient . History of Present Illness 43 year old F presents to the emergency department with the chief complaint of Right shoulder pain while lifting a patient, described as moderate, Quality is described as constant, and is localized to the right and upper extremity. Patient reports no radiation. Patient started experiencing this minute(s) and it has been constant. Rest improves symptom(s), Movement worsens symptoms . Patient notes no other symptoms.. Patient did receive the following treatments prior to arrival, none Related Data Home Medications Medication Instructions Recorded Confirmed citalopram [Celexa] 40 mg PO DAILY 07/16/12 09/15/18 clonazepam [Klonopin] 0.5 mg PO PRN PRN 07/16/12 09/15/18 bupropion HCl [Wellbutrin SR] 150 mg PO DAILY 02/18/13 09/15/18 Prilosec OTC 20 mg PO DAILY 04/13/13 09/15/18 atenolol 25 mg PO DAILY 11/13/13 09/15/18 lisinopril 5 mg PO DAILY 06/06/16 09/15/18 metformin [Glucophage XR] 500 mg PO HS 09/04/16 09/15/18 Metamucil Sugar-Free (aspart) 1 tbs PO DAILY #1 bottle 11/28/17 09/15/18 tramadol 50 mg PO Q6H PRN #10 tab 09/15/18 Previous Rx's Medication Instructions Recorded Metamucil Sugar-Free (aspart) 1 tbs PO DAILY #1 bottle 11/28/17 tramadol 50 mg PO Q6H PRN #10 tab 09/15/18 Allergies Allergy/AdvReac Type Severity Reaction Status Date / Time azithromycin Allergy Intermediate Hives Unverified 09/15/18 06:44 latex Allergy Intermediate Skin Rash Unverified 09/15/18 06:44 adhesive Allergy Mild Hives Unverified 09/15/18 06:44 amoxicillin trihydrate AdvReac Intermediate itching Unverified 09/15/18 06:44 [From Augmentin] potassium clavulanate AdvReac Intermediate itching Unverified 09/15/18 06:44 [From Augmentin] General Stated Complaint: Orthopedic KARI: 4 Review of Systems Review of Systems 4 systems reviewed and otherwise negative [facility] Medical History Anxiety Cholesteatoma of left ear DM (diabetes mellitus), type 2 Depression Essential hypertension Neck pain on right side Ovarian cyst Shoulder pain, right Syncope Surgical History Arthroplasty of knee Cholecystectomy Vaginal hysterectomy Social History Smoking/Tobacco Use Status: Former Tobacco Use Alcohol Intake: never Drug use: Never Do you feel safe at home: Yes Do you feel safe in your relationship?: Yes Exam Narrative Exam Narrative: GEN: awake, alert, oriented 3. Pleasant, well groomed, interactive. HEAD: Normocephalic, atraumatic ENT: Mucous membranes moist, oropharynx unremarkable, External ear exam unremarkable EYES: PERRL, EOMI NECK: Full ROM, no MAYCO, no menigismus CHEST/RESP: Tender right anterior humerus to palpation. Her motion is intact but limited by pain. Motor 5 out of 5 bilateral upper extremity. Sensation is intact throughout EXT: Full ROM, no edema, no rash Neuro: Grossly normal neurologic exam, conversant, interactive. Psych: Speech fluent, thoughts congruent, affect normal Course Vital Signs Temperature 36.5 C 09/15/18 06:40 Pulse 80 09/15/18 06:40 Respiratory Rate 16 09/15/18 06:40 Blood Pressure 136/76 09/15/18 06:40 Pulse Oximetry 96 09/15/18 06:40 Temperature 36.5 C 09/15/18 06:40 Temperature Source Skin 09/15/18 06:40 Pulse 80 09/15/18 06:40 Respiratory Rate 16 09/15/18 06:40 Respiratory Effort Non-Labored 09/15/18 06:43 Blood Pressure 136/76 09/15/18 06:40 Blood Pressure Position Sitting 09/15/18 06:40 Pulse Oximetry 96 09/15/18 06:40 Oxygen Delivery Method Room Air 09/15/18 06:40 Oxygen Flow Rate 0 09/15/18 06:40 Pain Level 8 09/15/18 06:46
--- NOTE | 2018-09-15 07:29 | DI.VRAD_ITS ---
EXAM: XR Right Shoulder, Complete, 2 or More Views EXAM DATE/TIME: 09/15/2018 6:50 AM CLINICAL HISTORY: 43 years old, female; Pain; Shoulder; Right; Patient HX: Lifting injury TECHNIQUE: Imaging protocol: XR Right shoulder, complete 2 or more views. COMPARISON: CR RIGHT SHOULDER COMPLETE 02/17/2016 3:36 PM FINDINGS: Bones/joints: Normal. Soft tissues: Normal. Other findings: IMPRESSION: No acute findings Dictated and Authenticated by: Joey Estrella MD. Ordering:CARMEN Celestin MD
--- NOTE | 2018-09-16 08:55 | PDOC.ERCMPRO ---
Care Management Progress Note 09/16-Dr. Lopez requested assistance with a PCP (Albert) f/u in 7-10 days for shoulder strain/rotator cuff. Referral faxed to [facility] this am.
== END 2018-09-15 07:44 | disposition home or self-care (01) ==
PROVIDERS: Emergency Provider Emergency Medicine; PCP Physician Assistant Medical
DX: S46.911A Strain of unspecified muscle, fascia and tendon at shoulder and upper arm level, right arm, initial encounter (principal); X50.1XXA Overexertion from prolonged static or awkward postures, initial encounter
CPT/HCPCS: 99283; 73030; L3650

== ENCOUNTER 2018-12-07 23:39 | Emergency (ER) | payer BC, SELFPAY ==
[2018-12-07 23:41] VITALS: BP 157/112; PULSE 126; RESP 22; TEMP 36.8; O2SAT 95
--- NOTE | 2018-12-07 23:48 | DI.CT_ITS ---
SYMPTOMS/DIAGNOSIS: UPPER ABDOMEN PAIN, NAUSEA, VOMITING CT OF THE ABDOMEN AND PELVIS: Comparison is made with [id number]. The liver shows fatty infiltration. The patient is status post cholecystectomy. The spleen and liver are both mildly enlarged. The pancreas, kidneys and adrenals are unremarkable. The patient is status post hysterectomy. The bladder is nearly empty. There is sigmoid diverticulosis but no evidence of diverticulitis. There is some fluid seen in the colon but no evidence of wall thickening. The appendix appears normal. There is no small bowel dilatation. The lung bases are clear. There is small hiatal hernia. IMPRESSION: Small hiatal hernia. Diverticulosis. Fatty liver. No acute abnormality.
--- NOTE | 2018-12-07 23:51 | W.ED.GENAD ---
Discharge Plan Disposition Patient Disposition: HOME Condition: Stable Discharge Details Chief Complaint: Abd Prob Clinical Impression: Nausea and vomiting, Abdominal pain Primary Care Provider: Casey Price ED Provider: Jarret Brown Home Meds and New Rx's Prescriptions: New ondansetron 4 mg tablet,disintegrating 4 mg PO Q8H PRN (Reason: nausea and vomiting) Qty: 30 RF: 0 No Action metformin [Glucophage XR] 500 MG tablet extended release 24 hr 500 mg PO HS RF: 0 citalopram [Celexa] 40 MG tablet 40 mg PO DAILY RF: 0 clonazepam [Klonopin] 0.5 MG tablet 0.5 mg PO PRN PRNRF: 0 bupropion HCl [Wellbutrin SR] 100 MG tablet extended release 12 hr 150 mg PO DAILY RF: 0 Prilosec OTC 20 MG tablet,delayed release (DR/EC) 20 mg PO DAILY RF: 0 atenolol 25 MG tablet 25 mg PO DAILY RF: 0 lisinopril 5 MG tablet 5 mg PO DAILY RF: 0 Metamucil Sugar-Free (aspart) 283 GM powder 1 tbs PO DAILY Qty: 1 RF: 6 tramadol 50 mg tablet 50 mg PO Q6H PRN (Reason: pain) Qty: 10 RF: 0 Discharge Instructions Instructions: Acute Nausea and Vomiting (ED) Additional Instructions: if symptoms are not better in a few days see your primary care provider if you feel you are becoming more ill, have severe worsening of pain or persistent vomit despite medications return to the emergency department Stand Alone Forms: Work Release Medical Decision Making 43 yo female with hx of htn, t2dm, , who comes in with n/v and intermittent epigastric pain since 4pm as well as diarrhea. Denies chest pain, fevers, sob, recent travel or known sick contacts. She has epigastric and luq tenderenss without distention on exam. Given lack of chest pain and symptoms of diarrhea, n/v and abdominal pain doubt acs at this time. Will obtain lab work and imaging to eval for pancreatitis, hepatitis and also sbo among other pathology. pt feeling better, labs and imaging show no acute findings. Suspect either food born illness or gastroenteritis, no longer having abd tenderness or pain. Will d/c with zofran and advised f/u with pcp and return precautions given Differential Diagnosis sbo, pancreatitis, food illness Imaging Data Radiologic Study: Attestation: I personally reviewed and interpreted this imaging study as follows: Imaging: CT Scan Radiologist's impression: IMPRESSION: 1. Hepatosplenomegaly. 2. Hiatal hernia. 3. Fatty liver. 4. Colonic diverticula. Lab Data Lab results reviewed: Yes I reviewed the patient's lab results. HPI General Mode of arrival: ambulatory. Date/Time Provider Initiated Documentation: 12/07/18 23:42. Limitations to Documentation: no limitations. Information obtained by: patient. History of Present Illness 43 year old F presents to the emergency department with the chief complaint of vomit, described as moderate, Patient started experiencing this hour(s) (7) and it has been intermittent. No relieving factors improve symptom(s), No exacerbating factors reported . Patient did receive the following treatments prior to arrival, none Related Data Home Medications Medication Instructions Recorded Confirmed citalopram [Celexa] 40 mg PO DAILY 07/16/12 09/15/18 clonazepam [Klonopin] 0.5 mg PO PRN PRN 07/16/12 09/15/18 bupropion HCl [Wellbutrin SR] 150 mg PO DAILY 02/18/13 09/15/18 Prilosec OTC 20 mg PO DAILY 04/13/13 09/15/18 atenolol 25 mg PO DAILY 11/13/13 09/15/18 lisinopril 5 mg PO DAILY 06/06/16 09/15/18 metformin [Glucophage XR] 500 mg PO HS 09/04/16 09/15/18 Metamucil Sugar-Free (aspart) 1 tbs PO DAILY #1 bottle 11/28/17 09/15/18 tramadol 50 mg PO Q6H PRN #10 tab 09/15/18 ondansetron 4 mg PO Q8H PRN #30 tab 12/08/18 Previous Rx's Medication Instructions Recorded Metamucil Sugar-Free (aspart) 1 tbs PO DAILY #1 bottle 11/28/17 tramadol 50 mg PO Q6H PRN #10 tab 09/15/18 ondansetron 4 mg PO Q8H PRN #30 tab 12/08/18 Allergies Allergy/AdvReac Type Severity Reaction Status Date / Time azithromycin Allergy Intermediate Hives Unverified 09/15/18 06:44 latex Allergy Intermediate Skin Rash Unverified 09/15/18 06:44 adhesive Allergy Mild Hives Unverified 09/15/18 06:44 amoxicillin trihydrate AdvReac Intermediate itching Unverified 09/15/18 06:44 [From Augmentin] potassium clavulanate AdvReac Intermediate itching Unverified 09/15/18 06:44 [From Augmentin] General Stated Complaint: Abd Prob KARI: 3 Review of Systems Review of Systems All systems reviewed & are unremarkable except as noted in HPI and below Constitutional Denies chills, Denies fever(s) and Denies weakness Cardiovascular Denies chest pain and Denies dyspnea Respiratory Denies cough and Denies dyspnea Gastrointestinal Denies vomiting Genitourinary Denies dysuria Integumentary/Breasts Denies rash Neurologic Denies weakness [facility] Social History Smoking/Tobacco Use Status: Former Tobacco Use Alcohol Intake: never Drug use: Never Do you feel safe at home: Yes Do you feel safe in your relationship?: Yes Exam Const General: no acute distress Orientation: alert HENMT Head: normal to inspection Ears: external ears normal General nose exam: external nose normal Mouth: moist mucous membranes Eyes General: appearance normal, both eyes and all related structures Neck Neck: normal visual inspection Resp Effort & Inspection: normal respiratory effort and able to speak in complete sentences Cardio Rate: regular rate GI Palpation: soft Skin General skin exam: no rashes or lesions noted Neuro General: alert and oriented x3 Extrem General: normal to inspection Psych Mental Status: mental status grossly normal Course Vital Signs Temperature 36.8 C 12/07/18 23:41 Pulse 126 H 12/07/18 23:41 Respiratory Rate 22 12/07/18 23:41 Blood Pressure 157/112 H 12/07/18 23:41 Pulse Oximetry 95 12/07/18 23:41 Temperature 36.8 C 12/07/18 23:41 Temperature Source Tympanic 12/07/18 23:41 Pulse 126 H 12/07/18 23:41 Respiratory Rate 22 12/07/18 23:41 Respiratory Effort 12/07/18 23:44 Blood Pressure 157/112 H 12/07/18 23:41 Pulse Oximetry 95 12/07/18 23:41 Oxygen Delivery Method Room Air 12/07/18 23:41 Oxygen Flow Rate 0 12/07/18 23:41 Pain Level 7 12/07/18 23:41
[2018-12-08] VITALS (7 sets, daily range): BP systolic 128–133; BP diastolic 66–75; PULSE 87–93; RESP 22; O2SAT 94–97
[2018-12-08] MEDS: Normal Saline 1,000 ML 1000 ML IV (00:01)
[2018-12-08] MEDS: Ondansetron 4 MG/2 ML VIAL IVP (00:05)
[2018-12-08 00:11] LABS: Abs Immature Grans 0.02 k/cumm (0.0-0.09); Absolute Basophil Count 0.02 k/cumm (0.0-0.2); Absolute Eosinophil Count 0.07 k/cumm (0.0-0.7); Absolute Lymphocyte Count 0.85 k/cumm (1.2-3.4); Absolute Monocyte Count 0.75 k/cumm (0.11-0.7); Absolute Neutrophil Count 9.48 k/cumm (1.2-6.7); Basophils % 0.2; Eosinophils % 0.6; HCT 44.9 % (36.0-46.0); HGB 15.2 g/dL (12.0-15.5); Immature Grans % 0.2; Lymphocytes % 7.6; Mean Corp. HGB Concentration 33.9 g/dL (32.0-36.0); Mean Corpuscular Volume 79.9 fL (80-95); Monocytes % 6.7; Neutrophils % 84.7; Platelet Count 349 x1000/uL (130-400); RBC 5.62 m/cumm (4.00-5.20); White Blood Cell Count 11.19 k/cumm (4.4-10.8)
[2018-12-08] MEDS: Omnipaque 350 MG/ML 100 ML BTL IJ (00:21)
[2018-12-08 00:34] LABS: ALT 38 U/L (12-78); AST 12 U/L (15-37); Albumin 3.9 g/dL (3.4-5.0); Alkaline Phosphatase 107 U/L (46-116); Anion Gap 9.6 mmol/L (3-11); BUN 17 mg/dL (7-18); Bilirubin, Total 0.8 mg/dL (0.2-1.0); CO2 25.4 mmol/L (21.0-32.0); CREATININE 0.97 mg/dL (0.55-1.02); Calcium 10.2 mg/dL (8.5-10.1); Chloride 102 mmol/L (98-107); Glucose 178 mg/dL (70-100); Lipase 113 U/L (73-393); Magnesium 1.7 mg/dL (1.8-2.4); NT-proBNP 17 pg/mL; Potassium 3.9 mmol/L (3.5-5.1); Sodium 137 mmol/L (136-145); Total Protein 7.3 g/dL (6.4-8.2)
--- NOTE | 2018-12-08 00:48 | DI.VRAD_ITS ---
EXAM: CT Abdomen and Pelvis With Contrast EXAM DATE/TIME: 12/07/2018 11:49 PM CLINICAL HISTORY: 43 years old, female; Nausea and vomiting; Localized; Patient HX: Upper abdominal pain, n/v TECHNIQUE: Imaging protocol: Axial computed tomography images of the abdomen and pelvis with intravenous contrast. Coronal and sagittal reformatted images were created and reviewed. COMPARISON: CT ABD PELVIS WITH CONTRAST 11/26/2017 5:32 PM FINDINGS: Mediastinum: Hiatal hernia. Liver: There is a diffuse decrease in hepatic parenchymal density, consistent with mild fatty infiltration. Hepatomegaly. Gallbladder and bile ducts: The patient is status post cholecystectomy.. No biliary ductal dilatation. Pancreas: Normal. No ductal dilation. Spleen: Splenomegaly. Adrenals: Normal. No mass. Kidneys and ureters: Normal. No hydronephrosis. Stomach and bowel: There is no evidence of intestinal perforation or obstruction. Colonic diverticula. Appendix: Normal appendix. Intraperitoneal space: There is no free intraperitoneal air. Vasculature: Normal. No abdominal aortic aneurysm. Lymph nodes: No adenopathy. Bladder: Unremarkable as visualized. Reproductive: Unremarkable as visualized. Bones/joints: The spine demonstrates mild degenerative changes at multiple levels. Minimal retrolisthesis of L5 on S1. Soft tissues: Unremarkable. IMPRESSION: 1. Hepatosplenomegaly. 2. Hiatal hernia. 3. Fatty liver. 4. Colonic diverticula. Dictated and Authenticated by: Josse Sandoval MD. Ordering:KWAKU Wheat MD
[2018-12-08] MEDS: Ondansetron O.D.T. 4 MG TABEF PO (00:54)
== END 2018-12-08 01:03 | disposition home or self-care (01) ==
PROVIDERS: Emergency Provider Emergency Medicine; PCP Physician Assistant Medical
DX: R11.2 Nausea with vomiting, unspecified (principal); R10.13 Epigastric pain; R19.7 Diarrhea, unspecified; I10 Essential (primary) hypertension; E11.9 Type 2 diabetes mellitus without complications; Z79.84 Long term (current) use of oral hypoglycemic drugs
CPT/HCPCS: 36415; 80053; 83690; 96361; 96374; 99284; 74177; 83735; 83880; 85025; J2405; J3490

== ENCOUNTER 2019-03-03 21:01 | Emergency (ER) | payer BC, SELFPAY ==
[2019-03-03] VITALS (16 sets, daily range): BP systolic 103–152; BP diastolic 58–94; PULSE 60–93; RESP 10–14; TEMP 37; O2SAT 94–99
--- NOTE | 2019-03-03 21:20 | DI.CT_ITS ---
EXAM: CT HEAD CERVICAL SPINE WO CLINICAL HISTORY: syncope, fall, headache, neck ache TECHNIQUE: The exam was performed according to the usual protocol without contrast. COMPARISON: No exams were available for comparison FINDINGS: There is normal brody-white matter differentiation. The ventricles are intact. The basilar cisterns are patent. No acute intracranial hemorrhage, midline shift, or mass effect is present. The visuali zed paranasal sinuses are clear except for a mucous retention cyst or polyp in the right sphenoid sin us. No fluid levels are present in the sinuses. The mastoid air cells are well pneumatized. The ca lvarium is intact. There is patient motion artifact on the CT scan of the cervical spine. No acute fracture or subluxat ion in the cervical spine is noted. There is straightening of the normal cervical lordosis. This ma y be due to patient positioning or muscle spasm. Moderate degenerative changes are present throughou t the cervical spine. Soft tissues are unremarkable. Note is made of bilateral thyroid nodules. Th e largest is on the left and it measures 2 cm. IMPRESSION: 1. No acute intracranial process. 2. No acute fracture or subluxation in the cervical spine. 3. Bilateral thyroid nodules. Nonemergent thyroid ultrasound should be considered for further evalua tion.
--- NOTE | 2019-03-03 21:20 | DI.RAD_ITS ---
EXAM: XR CHEST 2V PA LATERAL INDICATION: syncope. COMPARISON: ABD FLAT UPRIGHT PA CHEST from 11/26/2017 TECHNIQUE: 2D digital imaging was performed. FINDINGS: The heart size and pulmonary vasculature are within normal limits. The lungs are clear. No effusion or pneumothorax is identified. The bones are intact. IMPRESSION: No acute pulmonary process.
--- NOTE | 2019-03-03 21:22 | W.ED.GENAD ---
Discharge Plan Disposition Patient Disposition: HOME Condition: Improving Discharge Details Chief Complaint: Dizzy/Sync Clinical Impression: Migraine, Stress reaction Primary Care Provider: Casey Price ED Provider: Fawad Lopez Home Meds and New Rx's Prescriptions: No Action metformin [Glucophage XR] 500 MG tablet extended release 24 hr 500 mg PO HS RF: 0 citalopram [Celexa] 40 MG tablet 40 mg PO DAILY RF: 0 clonazepam [Klonopin] 0.5 MG tablet 0.5 mg PO PRN PRNRF: 0 bupropion HCl [Wellbutrin SR] 100 MG tablet extended release 12 hr 150 mg PO DAILY RF: 0 Prilosec OTC 20 MG tablet,delayed release (DR/EC) 20 mg PO DAILY RF: 0 atenolol 25 MG tablet 25 mg PO DAILY RF: 0 lisinopril 5 MG tablet 5 mg PO DAILY RF: 0 Metamucil Sugar-Free (aspart) 283 GM powder 1 tbs PO DAILY Qty: 1 RF: 6 tramadol 50 mg tablet 50 mg PO Q6H PRN (Reason: pain) Qty: 10 RF: 0 ondansetron 4 mg tablet,disintegrating 4 mg PO Q8H PRN (Reason: nausea and vomiting) Qty: 30 RF: 0 Medical Decision Making Medical Records Medical records narrative: 43-year-old female with 3 days of migraine headache. Also endorses some increased stress at home and at work. She had a panic attack with her migraine today, took Ativan, then while standing in the shower became weak, lightheaded, Sanka the ground had a presyncopal event. She did not injure herself in any way. There was no seizure, no tongue biting, no loss of bowel or bladder continence. She has not had a recent fever or illness. She arrives in distress with blood pressure 152/94, pulse 70, she is afebrile, well-appearing, her neurologic exam is without focal deficits. Differential diagnosis includes migraine headache, dehydration, must exclude intracranial injury, cervical spine injury, ACS. IV access established, blood work obtained, patient given fluids, antiemetic, Toradol, referred for EKG, chest x-ray, CT scan of the head. Diagnostic studies: CBC with white count 8, hematocrit 38, platelets 250. Sodium 139, potassium 3.9, chloride 107, bicarb 26, BUN 11, creatinine 0.8. Glucose 156. Liver functions unremarkable, troponin negative. CT scan of the head and chest x-ray without acute findings. Patient improved with medication, do not feel further workup indicated at this time. Consistent with migraine headache and stress reaction. Lab Data Lab results reviewed: Yes I reviewed the patient's lab results. Labs: Laboratory Results - last 24 hr 03/03/19 03/03/19 20:30 20:30 WBC 8.05 RBC 4.75 Hgb 12.9 Hct 38.4 MCV 80.8 MCH 27.2 MCHC 33.6 RDW 14.3 Plt Count 250 MPV 9.8 Immature Gran % 0.2 Neutrophils % 66.4 Lymphocytes % 22.9 Monocytes % 8.8 Eosinophils % 1.5 Basophils % 0.2 Absolute Neutrophils 5.34 Absolute Lymphocytes 1.84 Absolute Monocytes 0.71 H Absolute Eosinophils 0.12 Absolute Basophils 0.02 Sodium 139 Potassium 3.9 Chloride 107 Carbon Dioxide 26.0 Anion Gap 6.0 BUN 11 Creatinine 0.83 Estimated GFR/1.73 m2 >= 60.00 Glucose 156 H Calcium 9.9 Magnesium 2.0 Total Bilirubin 0.2 AST 10 L ALT 28 Alkaline Phosphatase 98 Troponin I < 0.05 Total Protein 6.3 L Albumin 3.4 ECG Data Attestation: I personally reviewed and interpreted this ECG (s) as follows: Interpretation: Normal sinus rhythm, rate of 74, the QRS is narrow, there is no ST segment elevation, unremarkable intervals HPI General Mode of arrival: ambulatory. Date/Time Provider Initiated Documentation: 03/03/19 21:04. Limitations to Documentation: no limitations. Information obtained by: patient. History of Present Illness 43 year old F presents to the emergency department with the chief complaint of Migraine headache, anxiety and stress, syncope, described as moderate, and is localized to the head. Patient reports no radiation. Patient started experiencing this day(s) and it has been constant. No relieving factors improve symptom(s), No exacerbating factors reported . Patient notes headaches and malaise. Patient did receive the following treatments prior to arrival, NSAID Related Data Home Medications Medication Instructions Recorded Confirmed citalopram [Celexa] 40 mg PO DAILY 07/16/12 09/15/18 clonazepam [Klonopin] 0.5 mg PO PRN PRN 07/16/12 09/15/18 bupropion HCl [Wellbutrin SR] 150 mg PO DAILY 02/18/13 09/15/18 Prilosec OTC 20 mg PO DAILY 04/13/13 09/15/18 atenolol 25 mg PO DAILY 11/13/13 09/15/18 lisinopril 5 mg PO DAILY 06/06/16 09/15/18 metformin [Glucophage XR] 500 mg PO HS 09/04/16 09/15/18 Metamucil Sugar-Free (aspart) 1 tbs PO DAILY #1 bottle 11/28/17 09/15/18 tramadol 50 mg PO Q6H PRN #10 tab 09/15/18 ondansetron 4 mg PO Q8H PRN #30 tab 12/08/18 Previous Rx's Medication Instructions Recorded Metamucil Sugar-Free (aspart) 1 tbs PO DAILY #1 bottle 11/28/17 tramadol 50 mg PO Q6H PRN #10 tab 09/15/18 ondansetron 4 mg PO Q8H PRN #30 tab 12/08/18 Allergies Allergy/AdvReac Type Severity Reaction Status Date / Time azithromycin Allergy Intermediate Hives Unverified 09/15/18 06:44 latex Allergy Intermediate Skin Rash Unverified 09/15/18 06:44 adhesive Allergy Mild Hives Unverified 09/15/18 06:44 amoxicillin trihydrate AdvReac Intermediate itching Unverified 09/15/18 06:44 [From Augmentin] potassium clavulanate AdvReac Intermediate itching Unverified 09/15/18 06:44 [From Augmentin] General Stated Complaint: Dizzy/Sync KARI: 2 Review of Systems Narrative: Became lightheaded with syncope at home. No chest pain or palpitations. Now with mild persistent headache. 6 systems reviewed and otherwise negative [facility] Medical History Anxiety Cholesteatoma of left ear Depression DM (diabetes mellitus), type 2 Essential hypertension Neck pain on right side Ovarian cyst Shoulder pain, right Syncope Surgical History Arthroplasty of knee Cholecystectomy Vaginal hysterectomy Social History Smoking/Tobacco Use Status: Former Tobacco Use Alcohol Intake: never Drug use: Never Do you feel safe at home: Yes Do you feel safe in your relationship?: Yes Exam Narrative Exam Narrative: GEN: awake, alert, oriented 3. Pleasant, well groomed, interactive, in distress, lying in darkened room. HEAD: Normocephalic, atraumatic ENT: Mucous membranes moist, oropharynx unremarkable, External ear exam unremarkable EYES: PERRL, EOMI NECK: Full ROM, no MAYCO, no menigismus, nontender CHEST/RESP: Nontender, clear to auscultation bilateral, no wheeze/rhonchi/rales CARDIOVASCULAR: RRR, no murmur, rub jose. 2+ Rad pulse bilateral ABDOMEN: Soft, nontender, no mass. +Bowel sounds EXT: Full ROM, no edema, no rash Neuro: Grossly normal neurologic exam, conversant, interactive. Psych: Speech fluent, thoughts congruent, affect normal Course Vital Signs Vital signs: Vital Signs Temperature 37.0 C 03/03/19 21:08 Pulse 70 03/03/19 21:08 Respiratory Rate 10 L 03/03/19 21:08 Blood Pressure 152/94 H 03/03/19 21:08 Pulse Oximetry 98 03/03/19 21:08 Temperature 37.0 C 03/03/19 21:08 Pulse 70 03/03/19 21:08 Respiratory Rate 10 L 03/03/19 21:08 Blood Pressure 152/94 H 03/03/19 21:08 Pulse Oximetry 98 03/03/19 21:08 Oxygen Delivery Method Room Air 03/03/19 21:08 Oxygen Flow Rate 0 03/03/19 21:08 Pain Level 7 03/03/19 21:08
[2019-03-03] MEDS: Normal Saline 1,000 ML 1000 ML IV (21:35)
[2019-03-03 21:44] LABS: Abs Immature Grans 0.02 k/cumm (0.0-0.09); Absolute Basophil Count 0.02 k/cumm (0.0-0.2); Absolute Eosinophil Count 0.12 k/cumm (0.0-0.7); Absolute Lymphocyte Count 1.84 k/cumm (1.2-3.4); Absolute Monocyte Count 0.71 k/cumm (0.11-0.7); Absolute Neutrophil Count 5.34 k/cumm (1.2-6.7); Basophils % 0.2; Eosinophils % 1.5; HCT 38.4 % (36.0-46.0); HGB 12.9 g/dL (12.0-15.5); Immature Grans % 0.2; Lymphocytes % 22.9; Mean Corp. HGB Concentration 33.6 g/dL (32.0-36.0); Mean Corpuscular Hemoglobin 27.2 pg (27.0-33.0); Mean Corpuscular Volume 80.8 fL (80-95); Mean Platelet Volume 9.8 fL (8.0-11.0); Monocytes % 8.8; Neutrophils % 66.4; Platelet Count 250 x1000/uL (130-400); RBC 4.75 m/cumm (4.00-5.20); RBC Distribution Width 14.3 % (11.7-14.6); White Blood Cell Count 8.05 k/cumm (4.4-10.8)
[2019-03-03 21:58] LABS: ALT 28 U/L (14-59); AST 10 U/L (15-37); Albumin 3.4 g/dL (3.4-5.0); Alkaline Phosphatase 98 U/L (46-116); BUN 11 mg/dL (7-18); Bilirubin, Total 0.2 mg/dL (0.2-1.0); CREATININE 0.83 mg/dL (0.55-1.02); Calcium 9.9 mg/dL (8.5-10.1); Chloride 107 mmol/L (98-107); Glucose 156 mg/dL (70-100); Potassium 3.9 mmol/L (3.5-5.1); Sodium 139 mmol/L (136-145); Total Protein 6.3 g/dL (6.4-8.2); Troponin I < 0.05 ng/mL (0.00-0.06)
[2019-03-03] MEDS: Ketorolac 15 MG/ML VIAL IVP (22:13)
--- NOTE | 2019-03-03 22:36 | DI.VRAD_ITS ---
PROCEDURE INFORMATION: Exam: XR Chest, 2 Views Exam date and time: 03/03/2019 10:01 PM Clinical history: 43 years old, female; Other: Syncope TECHNIQUE: Imaging protocol: XR of the chest Views: 2 views. COMPARISON: CR ABD FLAT UPRIGHT PA CHEST 11/26/2017 3:00 PM FINDINGS: Lungs: Unremarkable. No consolidation. Pleural space: Unremarkable. No pleural effusion. No pneumothorax. Heart/Mediastinum: Unremarkable. No cardiomegaly. Bones/joints: Unremarkable. IMPRESSION: No acute findings. Dictated and Authenticated by: Josse Sandoval MD. Ordering:CARMEN Celestin MD
--- NOTE | 2019-03-03 22:43 | DI.VRAD_ITS ---
PROCEDURE INFORMATION: Exam: CT Head Without Contrast Exam date and time: 03/03/2019 9:48 PM Clinical history: 43 years old, female; Other: Syncope fall headache neck ache; Neck pain TECHNIQUE: Imaging protocol: Computed tomography of the head without contrast. COMPARISON: No relevant prior studies available. FINDINGS: Brain: Normal. No hemorrhage. Unremarkable white matter. No mass effect. Ventricles: Normal. No ventriculomegaly. Bones/joints: Unremarkable. No acute fracture. Sinuses: Cyst or polyp in the right sphenoid sinus. Mastoid air cells: Visualized mastoid air cells are well aerated. Soft tissues: Unremarkable. IMPRESSION: 1. No acute intracerebral findings. 2. Sinus disease. PROCEDURE INFORMATION: Exam: CT Cervical Spine Without Contrast Exam date and time: 03/03/2019 9:48 PM Clinical history: 43 years old, female; Other: Syncope fall headache neck ache; Neck pain TECHNIQUE: Imaging protocol: Computed tomography images of the cervical spine without contrast. COMPARISON: No relevant prior studies available. FINDINGS: Vertebrae: No fracture or subluxation. Multilevel degenerative changes. Straightening of lordosis. Discs/Spinal canal/Neural foramina: No canal stenosis. Bilateral foraminal narrowing at the C4-C5 and C6-C7 levels. Soft tissues: Unremarkable. Thyroid: Thyroid nodules, the largest, on the left, measuring 2 cm. Lungs: Lung apices are normal. IMPRESSION: 1. No fracture or subluxation. 2. Multilevel degenerative changes. 3. 2 cm left thyroid nodule. Correlation with thyroid ultrasound recommended. 4. Straightening of lordosis. Dictated and Authenticated by: Josse Sandoval MD. Ordering:CARMEN Celestin MD
== END 2019-03-03 22:54 | disposition home or self-care (01) ==
PROVIDERS: Emergency Provider Emergency Medicine; PCP Physician Assistant Medical
DX: G43.909 Migraine, unspecified, not intractable, without status migrainosus (principal); F43.9 Reaction to severe stress, unspecified
CPT/HCPCS: 36415; 80053; 93005; 96361; 96365; 96375; 99285; 70450; 71046; 72125; 83735; 84484; 85025; 93010; 99284; J1885

== ENCOUNTER 2019-03-22 10:30 | Emergency (ER) | payer BC, SELFPAY ==
[2019-03-22 10:32] VITALS: BP 166/106; PULSE 95; RESP 20; TEMP 36.7; O2SAT 98
--- NOTE | 2019-03-22 10:57 | DI.RAD_ITS ---
EXAM: XR FOOT RT COMPLETE INDICATION: s/p fall, r/o acute fracture. COMPARISON: No exams were available for comparison TECHNIQUE: 2D digital imaging was performed. FINDINGS: There is some artifact related to the patient's socks. No fracture or dislocation is seen. Heel spu rs are noted. There are minimal degenerative changes. IMPRESSION: No acute abnormality.
--- NOTE | 2019-03-22 10:57 | DI.RAD_ITS ---
EXAM: XR HIP RT COMPLETE AP PELVIS INDICATION: s/p fall, r/o acute fracture. COMPARISON: CERV SP.WITH OBL OR FLEX/EXT from 05/18/2016 TECHNIQUE: 2D digital imaging was performed. FINDINGS: No fracture or dislocation is seen. The hip joint spaces are well maintained. SI joints and pubic s ymphysis appear intact. IMPRESSION: Negative pelvis and right hip.
--- NOTE | 2019-03-22 10:57 | DI.RAD_ITS ---
EXAM: XR KNEE RT 4V AP,LAT,CYNTHIA,PAT INDICATION: s/p fall, r/o acute fracture. COMPARISON: RIGHT KNEE 3 VIEWS from 11/13/2013 TECHNIQUE: 2D digital imaging was performed. FINDINGS: No fracture is identified. A joint effusion is seen. There are degenerative changes of the femoral tibial as well as patellofemoral joint which have significantly increased since the previous exam. IMPRESSION: A joint effusion and degenerative changes. No fracture is visualized. If there is further clinical c oncern, a CT could be performed for further evaluation.
--- NOTE | 2019-03-22 11:00 | ED.GENADUL_ITS ---
Discharge Plan Disposition Patient Disposition: HOME Condition: Stable Discharge Details Chief Complaint: Orthopedic Clinical Impression: Contusion of right hip, Contusion of multiple sites of right leg, Effusion of right knee Primary Care Provider: Casey Price ED Provider: Nova Ennis Home Meds and New Rx's Prescriptions: Continued metformin [Glucophage XR] 500 MG tablet extended release 24 hr 500 mg PO HS RF: 0 citalopram [Celexa] 40 MG tablet 40 mg PO DAILY RF: 0 clonazepam [Klonopin] 0.5 MG tablet 0.5 mg PO PRN PRNRF: 0 bupropion HCl [Wellbutrin SR] 100 MG tablet extended release 12 hr 150 mg PO DAILY RF: 0 Prilosec OTC 20 MG tablet,delayed release (DR/EC) 20 mg PO DAILY RF: 0 atenolol 25 MG tablet 25 mg PO DAILY RF: 0 lisinopril 5 MG tablet 5 mg PO DAILY RF: 0 Metamucil Sugar-Free (aspart) 283 GM powder 1 tbs PO DAILY Qty: 1 RF: 6 ondansetron 4 mg tablet,disintegrating 4 mg PO Q8H PRN (Reason: nausea and vomiting) Qty: 30 RF: 0 Discharge Instructions Instructions: Contusion in Adults (ED), Swollen Knee Joint (ED) Additional Instructions: Rest, ice and elevate your right leg as much as possible. Apply ice to the affected area several times daily for 20 minutes at a time. Alternate Tylenol and Motrin as needed and directed for pain. Follow-up with your primary care doctor next week for reevaluation. Return to the emergency department if you develop any worsening or concerning symptoms. Stand Alone Forms: Work Release Discharge Data Discharge Physician: Nova Ennis Medical Decision Making 1040 -- 43-year-old female with right leg pain after fall on ice 2 days ago. Complaining of pain in the right hip, knee, ankle or foot. Pain with range of motion and tenderness to palpation of right hip, knee, ankle and right heel. No deformities noted. Neurovascularly intact. Will send for right hip, knee, ankle and foot x-rays and give a dose of ibuprofen. 1250 --delay in x-ray report due to issue with PACs which is now restored. X- rays reviewed and negative for fracture. Right knee notes and effusion. Patient requesting work note for today. An Mando wrap was ordered for the right knee. She states she has crutches at home. She was advised to rest, ice, elevate, alternate Tylenol and Motrin, follow-up with her primary care doctor as needed and return here with any concerns. Imaging Data Radiologic Study: Radiologist's impression: XR Right Hip with Pelvis Exam date and time: 03/22/2019 11:46 AM Clinical history: 43 years old, female; Other: S/P fall, R/O acute fracture TECHNIQUE: Imaging protocol: XR Right hip with pelvis when performed. Views: 2 or 3 views. COMPARISON: CT ABDOMEN PELVIS W 12/07/2018 11:56 PM FINDINGS: Bones/joints: Unremarkable. No acute fracture. Soft tissues: Unremarkable. IMPRESSION: No evidence for fracture. XR Right Knee Exam date and time: 03/22/2019 11:46 AM Clinical history: 43 years old, female; Other: S/P fall, R/O acute fracture TECHNIQUE: Imaging protocol: XR Right knee. Views: 4 or more views. COMPARISON: No relevant prior studies available. FINDINGS: Bones/joints: There is a moderate to large joint effusion. There are degenerative changes noted diffusely. There is no evidence for fracture or dislocation. Soft tissues: Normal. IMPRESSION: Joint effusion with degenerative changes. XR Right Ankle Exam date and time: 03/22/2019 11:47 AM Clinical history: 43 years old, female; Other: S/P fall, R/O acute fracture TECHNIQUE: Imaging protocol: XR Right ankle. Views: 3 or more views. COMPARISON: No relevant prior studies available. FINDINGS: Bones/joints: Normal. Bony alignment is anatomic without evidence for fracture or dislocation. Soft tissues: Normal. IMPRESSION: No evidence for acute posttraumatic abnormality. XR Right Foot Complete Exam date and time: 03/22/2019 11:47 AM Clinical history: 43 years old, female; Other: S/P fall, R/O acute fracture TECHNIQUE: Imaging protocol: XR Right foot. Views: 3 or more views. COMPARISON: No relevant prior studies available. FINDINGS: Bones/joints: Normal. Soft tissues: Normal. IMPRESSION: No evidence for fracture. Preliminary interpretation is based on receipt of 3 image(s). A final report will be issued subsequently. HPI General Mode of arrival: ambulatory . Date/Time Provider Initiated Documentation: 03/22/19 10:42 . Limitations to Documentation: no limitations . Information obtained by: patient . HPI Narrative: Patient is a 43-year-old female with a history of anxiety, depression, diabetes, who presents with right leg pain extending from her hip down to her foot for the past 2 days after fall. Patient states she was walking when she slipped on ice and fell onto her right hip and her right leg extended behind her. She mainly complaining of pain in her right hip, right posterior knee, ankle and heel. She denies any head injury, chest pain, shortness of breath, neck or back pain. She has not taken anything for pain today. She denies any saddle anesthesia, bowel or bladder incontinence, leg weakness or numbness. Related Data Home Medications Medication Instructions Recorded Confirmed citalopram [Celexa] 40 mg PO DAILY 07/16/12 03/22/19 clonazepam [Klonopin] 0.5 mg PO PRN PRN 07/16/12 03/22/19 bupropion HCl [Wellbutrin SR] 150 mg PO DAILY 02/18/13 03/22/19 Prilosec OTC 20 mg PO DAILY 04/13/13 03/22/19 atenolol 25 mg PO DAILY 11/13/13 03/22/19 lisinopril 5 mg PO DAILY 06/06/16 03/22/19 metformin [Glucophage XR] 500 mg PO HS 09/04/16 03/22/19 Metamucil Sugar-Free (aspart) 1 tbs PO DAILY #1 bottle 11/28/17 03/22/19 ondansetron 4 mg PO Q8H PRN #30 tab 12/08/18 03/22/19 Previous Rx's Medication Instructions Recorded Metamucil Sugar-Free (aspart) 1 tbs PO DAILY #1 bottle 11/28/17 ondansetron 4 mg PO Q8H PRN #30 tab 12/08/18 Allergies Allergy/AdvReac Type Severity Reaction Status Date / Time azithromycin Allergy Intermediate Hives Unverified 03/22/19 10:39 latex Allergy Intermediate Skin Rash Unverified 03/22/19 10:39 adhesive Allergy Mild Hives Unverified 03/22/19 10:39 amoxicillin trihydrate AdvReac Intermediate itching Unverified 03/22/19 10:39 [From Augmentin] potassium clavulanate AdvReac Intermediate itching Unverified 03/22/19 10:39 [From Augmentin] General Stated Complaint: Orthopedic KARI: 4 Review of Systems All systems reviewed & are unremarkable except as noted in HPI and below Constitutional Constitutional: Reports as per HPI, Denies chills and Denies fever(s) Eyes Eyes: Denies blurry vision ENT Ears, Nose, Mouth, and Throat: Denies dizziness, Denies sore throat and Denies throat swelling Cardiovascular Cardiovascular: Denies chest pain and Denies dyspnea Respiratory Respiratory: Denies cough and Denies dyspnea Gastrointestinal Gastrointestinal: Denies abdominal pain, Denies diarrhea and Denies vomiting Genitourinary Genitourinary: Denies hematuria and Denies dysuria Musculoskeletal Musculoskeletal: Denies back pain, Denies numbness and Reports other (right hip/knee/ankle/foot pain) Integumentary/Breasts Skin/Breast: Denies lesions and Denies rash Neurologic Neurologic: Denies dizziness, Denies focal weakness and Denies numbness Allergic/Immunologic Allergic/Immunologic: Denies throat swelling PFSH Medical History Anxiety Cholesteatoma of left ear Depression DM (diabetes mellitus), type 2 Essential hypertension Neck pain on right side Ovarian cyst Shoulder pain, right Syncope Surgical History Arthroplasty of knee Cholecystectomy Vaginal hysterectomy Social History Smoking/Tobacco Use Status: Former Tobacco Use Alcohol Intake: never Drug use: Never Do you feel safe at home: Yes Do you feel safe in your relationship?: Yes Exam Const General: cooperative, healthy appearing and no acute distress [facility] Head: normal to inspection Face and sinus: normal facial exam Eyes General: appearance normal, both eyes and all related structures EOM: EOM intact bilaterally Neck Neck: normal visual inspection and No submandibular swelling Lymphatic: no lymphadenopathy noted Chest Chest: normal inspection of the chest and no tenderness Resp Effort & Inspection: normal respiratory effort and able to speak in complete sentences Auscultation: clear to auscultation bilaterally Cardio Rate: regular rate Rhythm: regular rhythm GI Inspection: normal to inspection Palpation: soft, not firm, not rigid and nontender Auscultation: normal bowel sounds Back/Spine/Pelvis Thoracic/Lumbar Spine: thoracic and lumbar spine normal to inspection and No lumbar spinal tenderness Pelvis: no pain with anterior-posterior compression Skin General skin exam: no rashes or lesions noted Neuro General: alert, awake and oriented x3 Cognition: normal cognition Speech: speech normal Motor: muscle tone normal throughout Sensory Exam: no sensory deficits noted Extrem General: normal to inspection, normal capillary refill, no calf tenderness bilaterally and no edema Other: Tenderness to palpation of right lateral hip and in right groin. Pain in right hip with range of motion. No obvious deformities noted. No tenderness palpation of right thigh or right lower leg. Tenderness to palpation right posterior knee with pain with range of motion. There is minimal edema noted to right superior and medial knee. No obvious deformities noted. No significant ligamentous laxity. Tenderness to palpation of right lateral malleolus as well as right heel. Right DP/PT pulses intact. No evidence of trauma or deformity to right ankle or foot. No right fifth metatarsal tenderness. Psych Appearance: grossly normal Mental Status: mental status grossly normal Speech and Movement: speech and movement normal Affect: normal affect Course Vital Signs Vital signs: Vital Signs Temperature 98.1 F 03/22/19 10:32 Pulse 95 H 03/22/19 10:32 Respiratory Rate 20 03/22/19 10:32 Blood Pressure 166/106 H 03/22/19 10:32 Pulse Oximetry 98 03/22/19 10:32 Temperature 98.1 F 03/22/19 10:32 Temperature Source Skin 03/22/19 10:32 Pulse 95 H 03/22/19 10:32 Respiratory Rate 20 03/22/19 10:32 Respiratory Effort 03/22/19 10:37 Blood Pressure 166/106 H 03/22/19 10:32 Blood Pressure Position Sitting 03/22/19 10:32 Pulse Oximetry 98 03/22/19 10:32 Oxygen Delivery Method Room Air 03/22/19 10:32 Oxygen Flow Rate 0 03/22/19 10:32 Pain Level 8 03/22/19 10:41
[2019-03-22] MEDS: Ibuprofen 600 MG TAB PO (11:06)
--- NOTE | 2019-03-22 11:50 | DI.RAD_ITS ---
EXAM: XR ANKLE RT COMPLETE INDICATION: s/p fall, r/o acute fracture. COMPARISON: No exams were available for comparison TECHNIQUE: 2D digital imaging was performed. FINDINGS: There is some artifact created by the patient's socks. No fracture or ankle mortise widening is seen . There are small heel spurs. IMPRESSION: No acute abnormality.
--- NOTE | 2019-03-22 12:14 | DI.VRAD_ITS ---
PROCEDURE INFORMATION: Exam: XR Right Ankle Exam date and time: 03/22/2019 11:47 AM Clinical history: 43 years old, female; Other: S/P fall, R/O acute fracture TECHNIQUE: Imaging protocol: XR Right ankle. Views: 3 or more views. COMPARISON: No relevant prior studies available. FINDINGS: Bones/joints: Normal. Bony alignment is anatomic without evidence for fracture or dislocation. Soft tissues: Normal. IMPRESSION: No evidence for acute posttraumatic abnormality. COMMENT: Preliminary interpretation is based on receipt of 3 image(s). A final report will be issued subsequently. Dictated and Authenticated by: Jayna Ackerman MD. Ordering:GONZALEZ Bhatt MD
--- NOTE | 2019-03-22 12:16 | DI.VRAD_ITS ---
PROCEDURE INFORMATION: Exam: XR Right Hip with Pelvis when Performed Exam date and time: 03/22/2019 11:46 AM Clinical history: 43 years old, female; Other: S/P fall, R/O acute fracture TECHNIQUE: Imaging protocol: XR Right hip with pelvis when performed. Views: 2 or 3 views. COMPARISON: CT ABDOMEN PELVIS W 12/07/2018 11:56 PM FINDINGS: Bones/joints: Unremarkable. No acute fracture. Soft tissues: Unremarkable. IMPRESSION: No evidence for fracture. Preliminary interpretation is based on receipt of 2 image(s). A final report will be issued subsequently. Dictated and Authenticated by: Jayna Ackerman MD. Ordering:GONZALEZ Bhatt MD
--- NOTE | 2019-03-22 12:19 | DI.VRAD_ITS ---
Addendum created by Jayna Ackerman MD on 03/22/2019 2:00:41 PM EST Case discussed with technologist, Fide Cordero. It is the right knee that was imaged. Initial report created on 03/22/2019 12:19:01 PM EST PROCEDURE INFORMATION: Exam: XR Left Knee Exam date and time: 03/22/2019 11:46 AM Clinical history: 43 years old, female; Other: S/P fall, R/O acute fracture TECHNIQUE: Imaging protocol: XR Left knee. Views: 4 or more views. COMPARISON: No relevant prior studies available. FINDINGS: Bones/joints: There is a moderate to large joint effusion. There are degenerative changes noted diffusely. There is no evidence for fracture or dislocation. Soft tissues: Normal. IMPRESSION: Joint effusion with degenerative changes. COMMENT: Preliminary interpretation is based on receipt of 4 image(s). A final report will be issued subsequently. Dictated and Authenticated by: Jayna cAkerman MD. Ordering:GONZALEZ Bhatt MD
--- NOTE | 2019-03-22 12:20 | DI.VRAD_ITS ---
PROCEDURE INFORMATION: Exam: XR Right Foot Complete Exam date and time: 03/22/2019 11:47 AM Clinical history: 43 years old, female; Other: S/P fall, R/O acute fracture TECHNIQUE: Imaging protocol: XR Right foot. Views: 3 or more views. COMPARISON: No relevant prior studies available. FINDINGS: Bones/joints: Normal. Soft tissues: Normal. IMPRESSION: No evidence for fracture. Preliminary interpretation is based on receipt of 3 image(s). A final report will be issued subsequently. Dictated and Authenticated by: Jayna Ackerman MD. Ordering:GONZALEZ Bhatt MD
[2019-03-22 12:40] VITALS: BP 147/65; PULSE 74; O2SAT 97
== END 2019-03-22 13:14 | disposition home or self-care (01) ==
PROVIDERS: Emergency Provider Physician Assistant; PCP Physician Assistant Medical
DX: S70.01XA Contusion of right hip, initial encounter (principal); S80.11XA Contusion of right lower leg, initial encounter; M25.461 Effusion, right knee; S90.31XA Contusion of right foot, initial encounter; E11.9 Type 2 diabetes mellitus without complications; W00.0XXA Fall on same level due to ice and snow, initial encounter; Z79.84 Long term (current) use of oral hypoglycemic drugs
CPT/HCPCS: 99284; 73502; 73564; 73610; 73630; 99282

== ENCOUNTER 2019-03-25 05:35 | Emergency (ER) | payer BC, SELFPAY ==
[2019-03-25 05:40] VITALS: BP 179/88; PULSE 79; RESP 20; TEMP 36.3; O2SAT 100
--- NOTE | 2019-03-25 05:49 | W.ED.GENAD ---
Discharge Plan Disposition Patient Disposition: HOME Condition: Good Discharge Details Chief Complaint: DentalOral Clinical Impression: Abscess, dental Primary Care Provider: Casey Price ED Provider: Franko Aiken [place] Meds and New Rx's Prescriptions: Continued metformin [Glucophage XR] 500 MG tablet extended release 24 hr 500 mg PO HS RF: 0 citalopram [Celexa] 40 MG tablet 40 mg PO DAILY RF: 0 Prilosec OTC 20 MG tablet,delayed release (DR/EC) 20 mg PO DAILY RF: 0 atenolol 25 MG tablet 25 mg PO DAILY RF: 0 lisinopril 5 MG tablet 5 mg PO DAILY RF: 0 Metamucil Sugar-Free (aspart) 283 GM powder 1 tbs PO DAILY Qty: 1 RF: 6 bupropion HCl 150 mg tablet sustained-release 12 hr 150 mg PO DAILY RF: 0 lorazepam 1 mg tablet 1 mg PO DAILY PRNRF: 0 [place] 5 mcg/dose (250 mcg/mL) 1.2 mL pen injector SUBCUT RF: 0 clindamycin HCl 300 mg Capsule 300 mg PO TID RF: 0 Discharge Instructions Instructions: Dental Abscess (ED) Additional Instructions: Continue antibiotic. Alternate 600 mg of ibuprofen with 1 g of acetaminophen every 4 hours. Use the benzocaine gel every 2-4 hours for discomfort. Follow-up with the dentist on as planned. Return to ED for high fever, difficulty breathing, inability to swallow, increasing facial swelling. Discharge Data Discharge Date/Time-TO BE ENTERED AT DEPARTURE: 03/25/19 06:15 Medical Decision Making Patient with dental infection being treated with clindamycin pending extraction later in the week. Here for pain control. Benzocaine topical applied to mucosal area where pain is greatest. This helped with discomfort. Recommend continuing ibuprofen and acetaminophen alternating every 4 hours. Continue antibiotic. Use benzocaine topical every few hours to help with pain relief. Follow-up with dentist as planned. Return to ED for high fevers, increasing facial pain swelling, difficulty breathing, inability to swallow. HPI General Mode of arrival: ambulatory. Date/Time Provider Initiated Documentation: 03/25/19 05:48. Limitations to Documentation: no limitations. Information obtained by: patient and RN notes reviewed. HPI Narrative: Patient presenting with worsening dental pain after seeing her dentist yesterday and started on clindamycin for abscess. She is supposed to have the tooth extracted later in the week. She has been using ibuprofen and acetaminophen for pain. 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 She denies fever or facial swelling. She has taken 3 doses of the clindamycin. Related Data Home Medications Medication Instructions Recorded Confirmed citalopram [Celexa] 40 mg PO DAILY 07/16/12 03/25/19 Prilosec OTC 20 mg PO DAILY 04/13/13 03/25/19 atenolol 25 mg PO DAILY 11/13/13 03/25/19 lisinopril 5 mg PO DAILY 06/06/16 03/25/19 metformin [Glucophage XR] 500 mg PO HS 09/04/16 03/25/19 Metamucil Sugar-Free (aspart) 1 tbs PO DAILY #1 bottle 11/28/17 03/25/19 Byac mcg SUBCUT 03/25/19 03/25/19 bupropion HCl 150 mg PO DAILY 03/25/19 03/25/19 clindamycin HCl 300 mg PO TID 03/25/19 03/25/19 lorazepam 1 mg PO DAILY PRN 03/25/19 03/25/19 Previous Rx's Medication Instructions Recorded Metamucil Sugar-Free (aspart) 1 tbs PO DAILY #1 bottle 11/28/17 Allergies Allergy/AdvReac Type Severity Reaction Status Date / Time azithromycin Allergy Intermediate Hives Unverified 03/22/19 10:39 latex Allergy Intermediate Skin Rash Unverified 03/22/19 10:39 adhesive Allergy Mild Hives Unverified 03/22/19 10:39 amoxicillin trihydrate AdvReac Intermediate itching Unverified 03/22/19 10:39 [From Augmentin] potassium clavulanate AdvReac Intermediate itching Unverified 03/22/19 10:39 [From Augmentin] General Stated Complaint: DentalOral KARI: 4 Review of Systems Narrative: As documented in HPI otherwise negative as below. Const: no fever, chills, weakness Resp: no cough, SOB, pleuritic pain CV: no CP, diaphoresis, edema, syncope GI: no abdominal pain, nausea, vomiting, diarrhea Neuro: no headache, numbness, focal weakness, confusion PFSH Medical History Anxiety Cholesteatoma of left ear Depression DM (diabetes mellitus), type 2 Essential hypertension Neck pain on right side Ovarian cyst Shoulder pain, right Syncope Surgical History Arthroplasty of knee Cholecystectomy Vaginal hysterectomy Social History Smoking/Tobacco Use Status: Former Tobacco Use Alcohol Intake: never Drug use: Never Do you feel safe at home: Yes Do you feel safe in your relationship?: Yes Exam Const General: cooperative Orientation: alert and oriented x3 HENMT Head: normocephalic and atraumatic Face and sinus: normal facial exam Other: Fairly poor dentition with multiple caries as well as multiple previous extractions. No obvious gingival abscess that is amendable to drainage. Course Vital Signs Vital signs: Vital Signs Temperature 97.4 F L 03/25/19 05:40 Pulse 79 03/25/19 05:40 Respiratory Rate 20 03/25/19 05:40 Blood Pressure 179/88 H 03/25/19 05:40 Pulse Oximetry 100 03/25/19 05:40 Temperature 97.4 F L 03/25/19 05:40 Temperature Source Skin 03/25/19 05:40 Pulse 79 03/25/19 05:40 Respiratory Rate 20 03/25/19 05:40 Respiratory Effort 03/25/19 05:40 Blood Pressure 179/88 H 03/25/19 05:40 Blood Pressure Position Sitting 03/25/19 05:40 Pulse Oximetry 100 03/25/19 05:40 Oxygen Delivery Method Room Air 03/25/19 05:40 Oxygen Flow Rate 0 03/25/19 05:40 Pain Level 10 03/25/19 05:43
== END 2019-03-25 06:15 | disposition home or self-care (01) ==
PROVIDERS: Emergency Provider Emergency Medicine; PCP Physician Assistant Medical
DX: K04.7 Periapical abscess without sinus (principal)
CPT/HCPCS: 99283

== ENCOUNTER 2019-03-26 10:20 | Emergency (ER) | payer BC, SELFPAY ==
[2019-03-26 10:22] VITALS: BP 142/110; PULSE 84; RESP 22; TEMP 36.6; O2SAT 100
--- NOTE | 2019-03-26 10:48 | DI.CT_ITS ---
EXAM: CT NECK W CLINICAL HISTORY: Dental pain, neck swelling,? Delbert's angina TECHNIQUE: 100 cc Omnipaque 350 IV. COMPARISON: CT HEAD CERVICAL SPINE WO from 03/03/2019 FINDINGS: There is mild stranding in the soft tissues beneath the mandible. No abscess or phlegmon is seen. A left thyroid nodule is again noted. The upper lobes of both lungs appear clear. Visualized portions o f the brain and orbits are unremarkable. There are small, reactive lymph nodes bilaterally. The parot id and submandibular glands are unremarkable. Degenerative changes are again noted in the spine, grea test at C6-7. IMPRESSION: Mild submental cellulitis. No evidence of abscess or significant phlegmon.
--- NOTE | 2019-03-26 10:52 | W.ED.GENAD ---
Discharge Plan Disposition Patient Disposition: HOME Condition: Improving Discharge Details Chief Complaint: DentalOral Clinical Impression: Abscess, dental Primary Care Provider: Casey Price ED Provider: Sarah Nobles Home Meds and New Rx's Prescriptions: No Action metformin [Glucophage XR] 500 MG tablet extended release 24 hr 500 mg PO HS RF: 0 citalopram [Celexa] 40 MG tablet 40 mg PO DAILY RF: 0 Prilosec OTC 20 MG tablet,delayed release (DR/EC) 20 mg PO DAILY RF: 0 atenolol 25 MG tablet 25 mg PO DAILY RF: 0 ibuprofen 800 mg Tablet 800 mg PO Q8H RF: 0 acetaminophen 500 mg Tablet 1,000 mg PO Q4H PRNRF: 0 lisinopril 5 MG tablet 5 mg PO DAILY RF: 0 Metamucil Sugar-Free (aspart) 283 GM powder 1 tbs PO DAILY Qty: 1 RF: 6 bupropion HCl 150 mg tablet sustained-release 12 hr 150 mg PO DAILY RF: 0 lorazepam 1 mg tablet 1 mg PO DAILY PRNRF: 0 Byetta 5 mcg/dose (250 mcg/mL) 1.2 mL pen injector SUBCUT RF: 0 clindamycin HCl 300 mg Capsule 300 mg PO TID RF: 0 Discharge Instructions Instructions: Dental Abscess (ED) Additional Instructions: Ice to the face for swelling and discomfort. Keep head of bed elevated for comfort. Continue clindamycin as previously prescribed. Use medication as prescribed for pain, take 1 tablet every 8 hours if needed for pain relief. Do not mix with ibuprofen, Motrin, Aleve, Advil, Naprosyn. May use Tylenol for additional pain relief. Return for any worsening, concerns or alarming symptoms sooner if needed. Follow-up with your dentist as scheduled tomorrow Discharge Data Discharge Date/Time-TO BE ENTERED AT DEPARTURE: 03/26/19 12:43 Medical Decision Making Is a 43-year-old patient who presents for 4 days of dental pain. Patient reports on day 2 she was seen by dentist and began on clindamycin. Plan for dental extraction scheduled for tomorrow. Patient has been compliant with clindamycin for the last few days. 300 mg 3 times daily. Patient reports increase in facial pain now noting swelling beneath her chin. Patient reports difficulty taking her pills last night due to pain. Patient denies any obvious voice change or trismus. Patient denies any fever but does report general malaise. Patient is concerned due to persistence of pain and requesting pain medication for the next 24 hours until able to see her dentist tomorrow for scheduled extraction. On exam patient does not have any identifiable focal abscess at the gumline but does have widespread dental caries. Inferior frenulum is mildly erythematous and swollen. Patient does have obvious fullness and reported pain with palpation through the anterior aspect of her neck beginning in the submandibular area beneath her chin. Patient has no overlying cellulitis. Given patient's complaints of pain and fullness noted to the anterior portion of her neck I do feels reasonable to CT her at this time to be sure there is no identifiable or developing Delbert's angina. After discussion regarding pain management patient does not want any opiate medications. Patient has taken Toradol in the past which has been quite helpful for her. She is requesting the same. Patient did take Tylenol 2 hours prior to arrival with no relief. Toradol ordered for pain relief IV pending CT results. Spoke with radiologist over the phone who identifies no focal abscess or developing blood weeks angina at this time. Patient on medications noted to prolonged QTC in conjunction with Zofran. EKG done in the ER to be sure she would tolerate these medications. EKG shows a normal sinus rhythm at a rate of 70 with a QTC of 421. No evidence of QTC prolongation at this time. This was reviewed with my attending Dr. Burton Mackey. Patient advised to continue her daily medication, continue clindamycin prescribed. Follow-up with dentist as scheduled tomorrow. Patient reports significant pain relief after Toradol and is requesting 24 hours of Toradol orally. I discussed this with the patient. Made her aware that she is unable to take any additional NSAIDs while taking Toradol. Patient reports her understanding and agrees with plan of care. Patient has no active bleeding sites. Has tolerated Toradol in the past. The patient was stable and requested discharge. Prior to discharge, my usual and customary return precautions were reviewed with the patient - this included follow-up instructions and reasons to return to the Emergency Department if conditions worsens, does not improve as expected, or other new concerns arise. HPI General Date/Time Provider Initiated Documentation: 03/26/19 10:31. HPI Narrative: This a 43-year-old patient who presents for complaints of dental pain. Patient reports dental pain for the last 4 days. Patient reports she did see her dentist 2 days ago who prescribed clindamycin 300 mg 3 times daily which she has been compliant with. Patient reports increase in dental pain specifically now noting swelling and pain to the anterior aspect of her neck beneath her chin. Patient reports painful swallowing. She denies significant difficulty breathing with shortness of breath or wheezing. Nausea present without vomiting. Patient unable to take her daily medications last night due to pain. Patient reports no significant improvement since beginning antibiotic. Patient is due to see dentist tomorrow for scheduled dental extraction. Denies measured fever does report chills and malaise. No associated headache. Denies voice change or associated trismus Related Data Home Medications Medication Instructions Recorded Confirmed citalopram [Celexa] 40 mg PO DAILY 07/16/12 03/26/19 Prilosec OTC 20 mg PO DAILY 04/13/13 03/26/19 atenolol 25 mg PO DAILY 11/13/13 03/26/19 lisinopril 5 mg PO DAILY 06/06/16 03/26/19 metformin [Glucophage XR] 500 mg PO HS 09/04/16 03/26/19 Metamucil Sugar-Free (aspart) 1 tbs PO DAILY #1 bottle 11/28/17 03/26/19 [place] [facility] [place] 03/25/19 03/25/19 bupropion HCl 150 mg PO DAILY 03/25/19 03/26/19 clindamycin HCl 300 mg PO TID 03/25/19 03/26/19 lorazepam 1 mg PO DAILY PRN 03/25/19 03/26/19 acetaminophen 1,000 mg PO Q4H PRN 03/26/19 03/26/19 ibuprofen 800 mg PO Q8H 03/26/19 03/26/19 Previous Rx's Medication Instructions Recorded Metamucil Sugar-Free (aspart) 1 tbs PO DAILY #1 bottle 11/28/17 Allergies Allergy/AdvReac Type Severity Reaction Status Date / Time azithromycin Allergy Intermediate Hives Unverified 03/26/19 10:31 latex Allergy Intermediate Skin Rash Unverified 03/26/19 10:31 adhesive Allergy Mild Hives Unverified 03/26/19 10:31 amoxicillin trihydrate AdvReac Intermediate itching Unverified 03/26/19 10:31 [From Augmentin] potassium clavulanate AdvReac Intermediate itching Unverified 03/26/19 10:31 [From Augmentin] General Stated Complaint: DentalOral KARI: 4 Review of Systems All systems reviewed & are unremarkable except as noted in HPI and below Constitutional Constitutional: Reports chills, Denies fever(s), Reports malaise and Reports poor appetite ENT Ears, Nose, Mouth, and Throat: Denies change in voice, Reports dental pain, Denies ear discharge, Denies otalgia, Reports neck pain, Denies sinus pain, Denies sinus pressure and Reports throat swelling Cardiovascular Cardiovascular: Denies chest pain Gastrointestinal Gastrointestinal: Reports nausea and Denies vomiting Musculoskeletal Musculoskeletal: Reports neck pain Allergic/Immunologic Allergic/Immunologic: Reports throat swelling [facility] Medical History Anxiety Cholesteatoma of left ear Depression DM (diabetes mellitus), type 2 Essential hypertension Neck pain on right side Ovarian cyst Shoulder pain, right Syncope Social History Smoking/Tobacco Use Status: Former Tobacco Use Alcohol Intake: never Drug use: Never Do you feel safe at home: Yes Do you feel safe in your relationship?: Yes Exam Narrative Exam Narrative: CONST: Healthy appearing patient, in no acute distress. Well hydrated. Alert and alert. HENMT: Head nomocephalic, normal to inspection. Atraumatic. Hearing grossly normal. External ear canal no erythema or swelling. TM normal bilaterally. Nose normal to inspection. No rhinnorhea. Normal facial exam. Dental pain with palpation along the anterior and posterior lower jawline. Multiple dental caries noted in the anterior jaw specifically number #[phone] #24 #23. Inferior frenulum erythema and swelling is present. No obvious palpable abscess at the gumline. Tounge normal. Normal posterior oropharynx. Uvula midline. EYES: General normal appearance. Alignment normal. Eyelids normal. Conjunctiva normal. Sclera normal. PERRL. NECK: Normal visual inspection. FROM. No lymphadenopathy. Trachea midline. No Midline tenderness. Anterior neck swelling beneath the chin and the anterior superior neck fullness with palpation. Tenderness at the site. No overlying cellulitis CHEST: Normal insepection of the chest. RESP: Normal respiratory effort. Speaking full sentences. No cough. No wheezing. No retractions. Clear to auscaltation. Breath sound equal and present bilaterally. CARDIO: No JVD. Normal PMI. Regular Rate. Regular Rhythm. Normal peripheral pulses. SKIN: Normal. Dry. No rashes. Course Vital Signs Vital signs: Vital Signs Temperature 36.6 C 03/26/19 10:22 Pulse 84 03/26/19 10:22 Respiratory Rate 22 03/26/19 10:22 Blood Pressure 142/110 H 03/26/19 10:22 Pulse Oximetry 100 03/26/19 10:22 Temperature 36.6 C 03/26/19 10:22 Temperature Source Temporal Artery Scan 03/26/19 10:22 Pulse 84 03/26/19 10:22 Respiratory Rate 22 03/26/19 10:22 Respiratory Effort Non-Labored 03/26/19 10:26 Blood Pressure 142/110 H 03/26/19 10:22 Blood Pressure Position Sitting 03/26/19 10:22 Pulse Oximetry 100 03/26/19 10:22 Oxygen Delivery Method Room Air 03/26/19 10:22 Oxygen Flow Rate 0 03/26/19 10:22 Pain Level 10 03/26/19 10:22
[2019-03-26] MEDS: Normal Saline Flush 10 ML SYR IVP (11:00)
[2019-03-26] MEDS: Normal Saline 1,000 ML 1000 ML IV (11:05)
[2019-03-26] MEDS: Ondansetron 4 MG/2 ML VIAL IVP (11:10)
[2019-03-26 11:11] LABS: Abs Immature Grans 0.01 k/cumm (0.0-0.09); Absolute Basophil Count 0.01 k/cumm (0.0-0.2); Absolute Eosinophil Count 0.07 k/cumm (0.0-0.7); Absolute Lymphocyte Count 1.42 k/cumm (1.2-3.4); Absolute Monocyte Count 0.45 k/cumm (0.11-0.7); Absolute Neutrophil Count 5.82 k/cumm (1.2-6.7); Basophils % 0.1; Eosinophils % 0.9; HCT 43.6 % (36.0-46.0); HGB 14.3 g/dL (12.0-15.5); Immature Grans % 0.1; Lymphocytes % 18.3; Mean Corp. HGB Concentration 32.8 g/dL (32.0-36.0); Mean Corpuscular Hemoglobin 26.5 pg (27.0-33.0); Mean Corpuscular Volume 80.7 fL (80-95); Mean Platelet Volume 9.6 fL (8.0-11.0); Monocytes % 5.8; Neutrophils % 74.8; Platelet Count 338 x1000/uL (130-400); RBC Distribution Width 14.2 % (11.7-14.6); White Blood Cell Count 7.78 k/cumm (4.4-10.8)
[2019-03-26] MEDS: Ketorolac 15 MG/ML VIAL IVP (11:15)
[2019-03-26 11:22] LABS: ALT 33 U/L (14-59); AST 14 U/L (15-37); Albumin 3.8 g/dL (3.4-5.0); Alkaline Phosphatase 107 U/L (46-116); Anion Gap 8.6 mmol/L (3-11); BUN 6 mg/dL (7-18); Bilirubin, Total 0.5 mg/dL (0.2-1.0); CO2 27.4 mmol/L (21.0-32.0); CREATININE 0.77 mg/dL (0.55-1.02); Calcium 10.5 mg/dL (8.5-10.1); Chloride 104 mmol/L (98-107); Glucose 157 mg/dL (74-106); Sodium 140 mmol/L (136-145); Total Protein 7.3 g/dL (6.4-8.2)
[2019-03-26] MEDS: Omnipaque 350 MG/ML 100 ML BTL IJ (11:24)
[2019-03-26 12:35] VITALS: BP 159/90; PULSE 77; TEMP 36.7; O2SAT 98
== END 2019-03-26 12:43 | disposition home or self-care (01) ==
PROVIDERS: Emergency Provider Physician Assistant; PCP Physician Assistant Medical
DX: R22.0 Localized swelling, mass and lump, head (principal); K04.7 Periapical abscess without sinus; Z79.84 Long term (current) use of oral hypoglycemic drugs; E11.9 Type 2 diabetes mellitus without complications; I10 Essential (primary) hypertension
CPT/HCPCS: 36415; 36416; 70491; 80053; 82962; 93005; 96361; 96374; 96375; 99285; 85025; 93010; J1885; J2405; J3490

== ENCOUNTER 2019-05-16 13:02 | Outpatient (REF) | payer BC, SELFPAY ==
[2019-05-16 20:14] LABS: Ferritin 30 ng/mL (8-252); Magnesium 1.6 mg/dL (1.8-2.4)
[2019-05-16 20:29] LABS: Creatine Kinase 42 U/L (26-192)
== END 2019-05-16 13:22 ==
LOC: NCHCN 13:02
PROVIDERS: PCP Physician Assistant Medical; Visit Provider Physician Assistant Medical
DX: E11.9 Type 2 diabetes mellitus without complications (principal); G25.81 Restless legs syndrome
CPT/HCPCS: 82550; 82728; 83036; 83735

== ENCOUNTER 2019-06-02 15:47 | Emergency (ER) | payer BC, SELFPAY ==
[2019-06-02 15:54] VITALS: BP 131/80; PULSE 83; RESP 16; TEMP 36.4; O2SAT 96
--- NOTE | 2019-06-02 16:44 | ED.GENADUL_ITS ---
Discharge Plan Disposition Patient Disposition: HOME Condition: Good Discharge Details Chief Complaint: Laceration Clinical Impression: Laceration Primary Care Provider: Casey Price ED Provider: Sarah Nobles Home Meds and New Rx's Prescriptions: No Action metformin [Glucophage XR] 500 MG tablet extended release 24 hr 500 mg PO HS RF: 0 citalopram [Celexa] 40 MG tablet 50 mg PO DAILY RF: 0 Prilosec OTC 20 MG tablet,delayed release (DR/EC) 20 mg PO DAILY RF: 0 atenolol 25 MG tablet 25 mg PO DAILY RF: 0 ibuprofen 800 mg Tablet 800 mg PO Q8H RF: 0 acetaminophen 500 mg Tablet 1,000 mg PO Q4H PRNRF: 0 lisinopril 5 MG tablet 5 mg PO DAILY RF: 0 bupropion HCl 150 mg tablet sustained-release 12 hr 150 mg PO DAILY RF: 0 lorazepam 1 mg tablet 1 mg PO DAILY PRNRF: 0 Byetta 5 mcg/dose (250 mcg/mL) 1.2 mL pen injector 5 mcg SUBCUT DAILY RF: 0 ferrous sulfate [iron] 325 mg (65 mg iron) Tablet 325 mg PO DAILY RF: 0 magnesium oxide 400 mg magnesium Tablet 400 mg PO DAILY RF: 0 Discharge Instructions Instructions: Laceration (ED) Additional Instructions: Keep initial dressing in place for 1 to 2 days. Keep dry and clean. After removing her dressing be sure to wash your wound at least twice daily. Pat dry or air dry completely. Use antibiotic ointment over wound. Observe for any signs of infection. Expect wound to be sore for approximately 1 week and to take approximately 2 weeks to heal Return for any worsening, concerns or signs of infection if needed Medical Decision Making Is a 43-year-old patient presenting to the emergency room for laceration she sustained prior to arrival on [employer] knife she was cleaning. Patient sustained a superficial skin laceration not extending into the deep spaces of the thumb. Patient with a superficial laceration overlying the palmar aspect of the IP joint of the left thumb. Wound cleaned, debrided loose and jagged avulsed skin. Dressing placed. Patient's tetanus up-to-date. Wound care and management discussed. Patient agrees with plan of care. The patient was stable and requested discharge. Prior to discharge, my usual and customary return precautions were reviewed with the patient - this included follow-up instructions and reasons to return to the Emergency Department if conditions worsens, does not improve as expected, or other new concerns arise. HPI General Date/Time Provider Initiated Documentation: 06/02/19 16:04 . HPI Narrative: Is a 43-year-old patient presenting to the emergency room for a laceration of the left thumb. Patient was washing new steak knives and accidentally cut her finger overlying the palmar aspect of the IP joint. Patient's tetanus she believes is up-to-date in the last 5 to 6 years. Patient denies numbness, tingling or weakness. Concerned she may require stitches. Denies any other complaints. Injury occurred prior to arrival. Bleeding controlled. Related Data Home Medications Medication Instructions Recorded Confirmed citalopram [Celexa] 50 mg PO DAILY 07/16/12 06/02/19 Prilosec OTC 20 mg PO DAILY 04/13/13 06/02/19 atenolol 25 mg PO DAILY 11/13/13 06/02/19 lisinopril 5 mg PO DAILY 06/06/16 06/02/19 metformin [Glucophage XR] 500 mg PO HS 09/04/16 06/02/19 Byetta 5 mcg SUBCUT DAILY 03/25/19 06/02/19 bupropion HCl 150 mg PO DAILY 03/25/19 06/02/19 lorazepam 1 mg PO DAILY PRN 03/25/19 06/02/19 acetaminophen 1,000 mg PO Q4H PRN 03/26/19 06/02/19 ibuprofen 800 mg PO Q8H 03/26/19 06/02/19 ferrous sulfate [iron] 325 mg PO DAILY 06/02/19 06/02/19 magnesium oxide 400 mg PO DAILY 06/02/19 06/02/19 Allergies Allergy/AdvReac Type Severity Reaction Status Date / Time azithromycin Allergy Intermediate Hives Unverified 06/02/19 16:01 latex Allergy Intermediate Skin Rash Unverified 06/02/19 16:01 adhesive Allergy Mild Hives Unverified 06/02/19 16:01 amoxicillin trihydrate AdvReac Intermediate itching Unverified 06/02/19 16:01 [From Augmentin] potassium clavulanate AdvReac Intermediate itching Unverified 06/02/19 16:01 [From Augmentin] General Stated Complaint: Laceration KARI: 4 Review of Systems All systems reviewed & are unremarkable except as noted in HPI and below Musculoskeletal Musculoskeletal: Denies deformity, Denies limited range of motion, Denies numbness and Denies tingling Integumentary/Breasts Skin/Breast: Denies rash, Denies skin swelling and Reports wounds Neurologic Neurologic: Denies numbness and Denies tingling [facility] Social History Smoking/Tobacco Use Status: Former Tobacco Use Alcohol Intake: never Drug use: Never Substance use type: does not use Do you feel safe at home: Yes Do you feel safe in your relationship?: Yes Exam Narrative Exam Narrative: CONST: Healthy appearing patient, in no acute distress. Well hydrated. Alert and oriented. MUSCULOSKELETAL: Normal Gait. FROM of all extremities. Full range of motion of left hand. No weakness. Sensation intact. SKIN: Normal. Dry. No rashes. Patient with a superficial skin laceration with no extension deep to the dermis. Jagged superficial avulsion of skin. Nothing to indicate deep joint involvement. Flexion extension intact. Bleeding controlled. NEURO: Alert and awake. Speech clear. PSYCH: Normal affect. Cooperative. Course Vital Signs Vital signs: Vital Signs Temperature 36.4 C L 06/02/19 15:54 Pulse 83 06/02/19 15:54 Respiratory Rate 16 06/02/19 15:54 Blood Pressure 131/80 06/02/19 15:54 Pulse Oximetry 96 06/02/19 15:54 Temperature 36.4 C L 06/02/19 15:54 Temperature Source Skin 06/02/19 15:54 Pulse 83 06/02/19 15:54 Respiratory Rate 16 06/02/19 15:54 Respiratory Effort Non-Labored 06/02/19 16:05 Blood Pressure 131/80 06/02/19 15:54 Blood Pressure Position Sitting 06/02/19 15:54 Pulse Oximetry 96 06/02/19 15:54 Oxygen Delivery Method Room Air 06/02/19 15:54 Oxygen Flow Rate 0 06/02/19 15:54
== END 2019-06-02 17:05 | disposition home or self-care (01) ==
PROVIDERS: Emergency Provider Physician Assistant; PCP Physician Assistant Medical
DX: S61.012A Laceration without foreign body of left thumb without damage to nail, initial encounter (principal); W26.0XXA Contact with knife, initial encounter
CPT/HCPCS: 99282

== ENCOUNTER 2019-07-29 09:52 | Outpatient (CLI) | payer BC, SELFPAY ==
[2019-07-30 15:27] LABS: COVID-19 RT-PCR Result Not Detected (NotDetected)
== END 2019-07-29 10:12 ==
PROVIDERS: PCP Physician Assistant Medical; Visit Provider Specialist/Technologist Athletic Trainer
DX: Z20.828 Contact with and (suspected) exposure to other viral communicable diseases (principal); Z11.59 Encounter for screening for other viral diseases; R06.02 Shortness of breath
CPT/HCPCS: 87449; U0003

== ENCOUNTER 2019-09-18 12:02 | Outpatient (CLI) | payer BC, SELFPAY ==
[2019-09-19 15:29] LABS: COVID-19 RT-PCR Result NEGATIVE (Negative)
== END 2019-09-18 12:22 ==
PROVIDERS: PCP Physician Assistant Medical; Visit Provider Family Medicine
DX: Z11.59 Encounter for screening for other viral diseases (principal)
CPT/HCPCS: U0003

== ENCOUNTER 2019-10-02 11:27 | Outpatient (CLI) | payer BC, SELFPAY ==
--- NOTE | 2019-10-02 11:00 | DI.RAD_ITS ---
EXAM: XR ELBOW RT COMPLETE CLINICAL HISTORY: elbow pain. TECHNIQUE: 2D digital imaging was performed. COMPARISON: No exams were available for comparison FINDINGS: BONES: No acute fracture is present. No bony destructive lesion is seen. JOINTS: The elbow is normally aligned. No joint effusion is seen. SOFT TISSUE: Normal. IMPRESSION: Unremarkable radiographs of the right elbow. DATA REPOSITORY: RADIATION DOSE DELIVERED:
== END 2019-10-02 11:47 ==
PROVIDERS: PCP Physician Assistant Medical; Referring Provider Physician Assistant Medical; Visit Provider Physician Assistant
DX: M25.521 Pain in right elbow (principal)
CPT/HCPCS: 73080

== ENCOUNTER 2019-11-11 15:19 | Outpatient (REF) | payer BC, SELFPAY ==
[2019-11-11 20:29] LABS: Ferritin 39 ng/mL (8-252)
== END 2019-11-11 15:39 ==
LOC: NCHCN 15:19
PROVIDERS: PCP Physician Assistant Medical; Visit Provider Physician Assistant Medical
DX: G25.81 Restless legs syndrome (principal)
CPT/HCPCS: 82728; 83735

== ENCOUNTER 2020-01-03 21:40 | Emergency (ER) | payer BC, SELFPAY ==
--- NOTE | 2020-01-03 21:45 | DI.RAD_ITS ---
EXAM: XR TIB/FIB RT CLINICAL HISTORY: Dog bite, R/O foreign body. TECHNIQUE: 2D digital imaging was performed. COMPARISON: No exams were available for comparison FINDINGS: BONES: No acute fracture is present. No bony destructive lesion is seen. Visualized portion of knee a nd ankle joints are unremarkable. SOFT TISSUE: Normal. No radiopaque foreign body. IMPRESSION: No radiopaque foreign body. DATA REPOSITORY: RADIATION DOSE DELIVERED:
[2020-01-03 21:50] VITALS: BP 161/106; PULSE 95; RESP 30; TEMP 36.5; O2SAT 96
--- NOTE | 2020-01-03 22:03 | ED.GENADUL_ITS ---
Discharge Plan Disposition Patient Disposition: HOME Condition: Stable Discharge Details Chief Complaint: AnimalBite Clinical Impression: Dog bite of multiple sites of right lower extremity Primary Care Provider: Casey Price ED Provider: Nydia Martinez Home Meds and New Rx's Prescriptions: New clindamycin HCl 300 mg capsule 300 mg PO BID 10 Days Qty: 20 RF: 0 No Action Trulicity 1.5 mg/0.5 mL pen injector 0.75 mg SC QWEEK RF: 0 metformin [Glucophage XR] 500 MG tablet extended release 24 hr 500 mg PO HS RF: 0 citalopram [Celexa] 40 MG tablet 50 mg PO DAILY RF: 0 omeprazole magnesium [Prilosec OTC] 20 MG tablet,delayed release (DR/EC) 20 mg PO DAILY RF: 0 atenolol 25 MG tablet 25 mg PO DAILY RF: 0 ibuprofen 800 mg Tablet 800 mg PO Q8H PRNRF: 0 acetaminophen 500 mg Tablet 1,000 mg PO Q4H PRNRF: 0 lisinopril 5 MG tablet 5 mg PO DAILY RF: 0 bupropion HCl 150 mg tablet sustained-release 12 hr 150 mg PO DAILY RF: 0 lorazepam 1 mg tablet 1 mg PO DAILY PRNRF: 0 Byetta 5 mcg/dose (250 mcg/mL) 1.2 mL pen injector 5 mcg SUBCUT DAILY RF: 0 Discharge Instructions Instructions: Animal Bite (ED), Laceration (ED) Additional Instructions: Have sutures removed in 5 to 7 days. Steri-Strips will fall off on their own within 4 to 6 days. Return or be seen sooner for any increased redness, red streaks, fever or drainage. Take antibiotics twice a day as directed. No soaking. After 12 to 24 hours you may wash wounds under running soap and water. Dab Steri-Strips dry. Follow up with primary care provider in 3-5 days. Return to ED sooner if any worsening or concerns. Increase oral fluids. Please take Tylenol or Ibuprofen with food every 4-6 hours as needed for pain and swelling. Lidocaine will wear off in approximately 2 hours. Stand Alone Forms: Work Release Referrals: Casey Price PA [Primary Care Provider] - Discharge Data Discharge Date/Time-TO BE ENTERED AT DEPARTURE: 01/04/20 00:15 Medical Decision Making 44-year-old female presents the ER chief complaint of dog bite which occurred proximately 1 hour prior to arrival. She states that they were her dogs they are fighting she attempted to break up the dog fight and was bit multiple times to the right leg. She has approximately 5 different puncture wounds noted to right lower extremity. There is a approximately 3 centimeter laceration noted to the medial aspect of her right lower extremity. She has superficial abrasion noted to her right wrist. She denies any other injuries. She did not take any medications prior to arrival. She has a history of hypertension, diabetes mellitus type 2, ovarian cysts, cholecystectomy and vaginal hysterectomy. She reports that the dogs are up-to-date on their vaccinations. She is very upset and tearful rating pain 9 out of 10 on a scale. 2209: At this time x-ray ordered to rule out foreign body, topical anesthetic and wound care. Patient is allergic to azithromycin and amoxicillin she states that she can take clindamycin. Clindamycin 300 mg p.o. ordered at this time. TECHNIQUE: Imaging protocol: XR Right tibia and fibula. Views: 2 views. COMPARISON: CR XR KNEE RT 4V AP,LAT,CYNTHIA,PAT 03/22/2019 11:34 AM FINDINGS: Bones/joints: No suspicious osseous lytic or blastic lesion. No discrete or displaced fracture. No joint dislocation. Soft tissues: There is moderate inflammatory change of the medial soft tissues of the distal right lower leg. Correlate with site of soft tissue injury. No radiopaque retained foreign body. IMPRESSION: No acute osseous finding. No radiopaque retained foreign body. Thank you for allowing us to participate in the care of your patient. Dictated and Authenticated by: Candelario Arredondo MD 01/03/2020 10:41 PM Eastern Time ([place] & [place]) Laceration repair as noted in procedure note above. Wound was infiltrated and anesthetized with 1% lidocaine with epinephrine. Patient tolerated well. Wound was cleaned and irrigated with sterile saline and chlorhexidine. Laceration was loosely repaired with 3 simple interrupted sutures. Steri-Strips applied to the other puncture wounds. Discussed home care and wound care with patient. I also discussed strict return instructions to return with any increased redness, red streaks or signs of infection. Patient verbalized understanding. Instructed to have sutures removed in 7 to 10 days. Patient was placed on clindamycin 300 mg twice a day x10 days. HPI General Mode of arrival: ambulatory . Date/Time Provider Initiated Documentation: 01/03/20 21:40 . Limitations to Documentation: no limitations . Information obtained by: patient . HPI Narrative: 44-year-old female presents the ER chief complaint of dog bite which occurred proximately 1 hour prior to arrival. She states that they were her dogs they are fighting she attempted to break up the dog fight and was bit multiple times to the right leg. She has approximately 5 different puncture wounds noted to right lower extremity. There is a approximately 3 centimeter laceration noted to the medial aspect of her right lower extremity. She has superficial abrasion noted to her right wrist. She denies any other injuries. She did not take any medications prior to arrival. She has a history of hypertension, diabetes mellitus type 2, ovarian cysts, cholecystectomy and vaginal hysterectomy. She reports that the dogs are up-to-date on their vaccinations. She is very upset and tearful rating pain 9 o ut of 10 on a scale. Related Data Home Medications Medication Instructions Recorded Confirmed citalopram [Celexa] 50 mg PO DAILY 07/16/12 01/03/20 omeprazole magnesium [Prilosec OTC] 20 mg PO DAILY 04/13/13 01/03/20 atenolol 25 mg PO DAILY 11/13/13 01/03/20 lisinopril 5 mg PO DAILY 06/06/16 01/03/20 metformin [Glucophage XR] 500 mg PO HS 09/04/16 01/03/20 Byetta 5 mcg SUBCUT DAILY 03/25/19 11/13/19 bupropion HCl 150 mg PO DAILY 03/25/19 01/03/20 lorazepam 1 mg PO DAILY PRN 03/25/19 01/03/20 acetaminophen 1,000 mg PO Q4H PRN 03/26/19 01/03/20 ibuprofen 800 mg PO Q8H PRN 03/26/19 01/03/20 dulaglutide 1.5 mg/0.5 mL 0.75 mg SC QWEEK 10/02/19 01/03/20 subcutaneous pen injector clindamycin HCl 300 mg PO BID 10 Days #20 cap 01/03/20 Previous Rx's Medication Instructions Recorded clindamycin HCl 300 mg PO BID 10 Days #20 cap 01/03/20 Allergies Allergy/AdvReac Type Severity Reaction Status Date / Time azithromycin Allergy Intermediate Hives Unverified 01/03/20 22:03 latex Allergy Intermediate Skin Rash Unverified 01/03/20 22:03 adhesive Allergy Mild Hives Unverified 01/03/20 22:03 amoxicillin trihydrate AdvReac Intermediate itching Unverified 01/03/20 22:03 [From Augmentin] potassium clavulanate AdvReac Intermediate itching Unverified 01/03/20 22:03 [From Augmentin] General Stated Complaint: AnimalBite KARI: 3 Review of Systems All systems reviewed & are unremarkable except as noted in HPI and below Integumentary/Breasts Skin/Breast: Reports wounds (Dog bite noted to right lower extremity) PFSH Medical History Anxiety Cholesteatoma of left ear Depression DM (diabetes mellitus), type 2 Essential hypertension Neck pain on right side Ovarian cyst Shoulder pain, right Syncope Surgical History Arthroplasty of knee Cholecystectomy Vaginal hysterectomy Social History Smoking/Tobacco Use Status: Former Tobacco Use Alcohol Intake: never Drug use: Never Substance use type: does not use Do you feel safe at home: Yes Do you feel safe in your relationship?: Yes Exam Narrative Exam Narrative: Constitutional: Alert and oriented x3. Appears stated age. Normal body habitus. Very tearful upon initial exam. Head: Normocephalic, no trauma. Eyes: Pupils PERRLA, Red reflex noted, EOM's intact. Eyelids symmetrical without lesions, discharge, or swelling. ENT: Bilateral TM's WNL, External ear normal to inspection, no mastoid TTP, swelling, or erythema, Nasal turbinates WNL, no nasal discharge. Normal dentition, Posterior pharynx WNL, no exudate. Chest: RRR, Normal S1, S2, distal pulses intact. Resp: Lungs clear to auscultation bilaterally, no wheezes, rales, or rhonchi. Musculoskeletal: Normal gait, 5/5 strength to all four extremities. Skin: See extremity exam below. Capillary refill less than 2 sec. Neurologic: Cranial nerves II-XII intact. Alert and oriented x 3. DTR's intact. Hematologic/Lymphatic: No ecchymosis, no lymphadenopathy. Extrem Upper/lower leg/hip images: 1. 3 cm laceration 2. 3 superficial abrasions and surrounding ecchymosis 3. Puncture wound 4. Puncture wound Course Vital Signs Vital signs: Vital Signs Temperature 36.5 C 01/03/20 21:50 Pulse 95 H 01/03/20 21:50 Respiratory Rate 30 H 01/03/20 21:50 Blood Pressure 161/106 H 01/03/20 21:50 Pulse Oximetry 96 01/03/20 21:50 Temperature 36.5 C 01/03/20 21:50 Temperature Source Skin 01/03/20 21:50 Pulse 95 H 01/03/20 21:50 Respiratory Rate 30 H 01/03/20 21:50 Respiratory Effort 01/03/20 21:56 Blood Pressure 161/106 H 01/03/20 21:50 Blood Pressure Position Sitting 01/03/20 21:50 Pulse Oximetry 96 01/03/20 21:50 Oxygen Delivery Method Room Air 01/03/20 21:50 Oxygen Flow Rate 0 01/03/20 21:50 Comment 01/03/20 21:50 Procedures Laceration Laceration 1: Site: lower extremity Side (If applicable): left Size (cm): 3 Description: linear and irregular Depth: simple, single layer Local Anesthetic: Lidocaine 1% Amount of anesthesia used (mL): 2 Pre-repair: wound explored, irrigated extensively and deep structures intact Skin layer closed with: nylon Size (cm): 3-0 Number of sutures: 3 Technique: simple, interrupted (loose) and other (Other 4 puncture wounds closed with steri-strips)
[2020-01-03] MEDS: Clindamycin 300 MG CAP PO (22:08)
[2020-01-03] MEDS: Lidocaine/Epinephri/Tetracaine Topical Gel 3 ML TP (22:09)
--- NOTE | 2020-01-03 22:41 | DI.VRAD_ITS ---
PROCEDURE INFORMATION: Exam: XR Right Tibia and Fibula Exam date and time: 01/03/2020 10:01 PM Age: 44 years old Clinical indication: Injury or trauma; Injury history: Dog bite; Initial encounter; Lower leg; Right; Additional info: R/O foreign body TECHNIQUE: Imaging protocol: XR Right tibia and fibula. Views: 2 views. COMPARISON: CR XR KNEE RT 4V AP,LAT,CYNTHIA,PAT 03/22/2019 11:34 AM FINDINGS: Bones/joints: No suspicious osseous lytic or blastic lesion. No discrete or displaced fracture. No joint dislocation. Soft tissues: There is moderate inflammatory change of the medial soft tissues of the distal right lower leg. Correlate with site of soft tissue injury. No radiopaque retained foreign body. IMPRESSION: No acute osseous finding. No radiopaque retained foreign body. Dictated and Authenticated by: Candelario Arredondo MD. Ordering:RAISA Stafford MD
[2020-01-04 00:14] VITALS: BP 124/74; PULSE 77; RESP 16; O2SAT 98
--- NOTE | 2020-01-04 08:44 | NUR.NOTE ---
Animal bite report faxed to [facility] Officer. [phone] Note:
== END 2020-01-04 00:15 | disposition home or self-care (01) ==
PROVIDERS: Emergency Provider Registered Nurse Emergency; PCP Physician Assistant Medical
DX: S81.851A Open bite, right lower leg, initial encounter (principal); S81.819A Laceration without foreign body, unspecified lower leg, initial encounter; S81.831A Puncture wound without foreign body, right lower leg, initial encounter; W54.0XXA Bitten by dog, initial encounter; E11.9 Type 2 diabetes mellitus without complications; Z79.84 Long term (current) use of oral hypoglycemic drugs; I10 Essential (primary) hypertension
CPT/HCPCS: 12002; 99282; 73590; 99281

== ENCOUNTER 2020-02-08 21:14 | Emergency (ER) | payer BC, SELFPAY ==
[2020-02-08] VITALS (12 sets, daily range): BP systolic 132–166; BP diastolic 79–97; PULSE 84–121; RESP 12–25; TEMP 37.3; O2SAT 97–99
--- NOTE | 2020-02-08 21:15 | RT.EKG_ITS ---
APPROVED REPORT Exam: Resting ECG Patient Location: E HR:97 bpm ECG Measurements Heart Rate [address] 141 P 53 QRSd 84 QRS 49 QT 339 T 29 QTc 432 Conclusion Sinus rhythm...normal P axis, V-rate 60- 99 Low voltage, extremity leads...all extremity leads <0.5mV Otherwise normal ECG No STEMI
--- NOTE | 2020-02-08 21:37 | NUR.NOTE ---
Nursing Note: Patient unsteady upon standing at first, but after approximately 5 seconds was ok. Upon sitting up, ears felt warm.
--- NOTE | 2020-02-08 21:45 | DI.RAD_ITS ---
EXAM: XR PORTABLE CHEST AP CLINICAL HISTORY: palpitations. TECHNIQUE: 2D digital imaging was performed. COMPARISON: CR,XR XR CHEST 2V PA LATERAL from 03/03/2019 FINDINGS: LUNGS: Clear. No pleural abnormality seen. HEART: Normal. MEDIASTINUM: Normal. OTHER FINDINGS: None. IMPRESSION: No acute pulmonary findings. DATA REPOSITORY: RADIATION DOSE DELIVERED: Total DLP
[2020-02-08] MEDS: Normal Saline 1,000 ML 1000 ML IV ×2 (22:05)
[2020-02-08 22:14] LABS: Abs Immature Grans 0.02 10^3/uL (0.0-0.06); Absolute Basophil Count 0.02 10^3/uL (0.0-0.2); Absolute Eosinophil Count 0.09 10^3/uL (0.0-0.7); Absolute Lymphocyte Count 1.18 10^3/uL (1.2-3.4); Absolute Neutrophil Count 5.61 10^3/uL (1.2-6.7); Basophils % 0.3; Eosinophils % 1.2; HCT 40.5 % (36.0-46.0); HGB 13.6 g/dL (11.2-15.7); Immature Grans % 0.3; Lymphocytes % 15.3; MCH 27.3 pg (27.0-33.0); MCHC 33.6 % (32.0-36.0); MCV 81.2 fL (80-95); MPV 10.2 fL (8.0-11.0); Monocytes % 10.4; Neutrophils % 72.5; Nucleated RBC 0 %; Platelet Count 242 10^3/uL (130-400); RBC 4.99 10^6/uL (3.93-5.22); RDW 13.6 % (11.7-14.6); RDW-SD 39.5 fL; WBC 7.72 10^3/uL (4.4-10.8)
[2020-02-08 22:26] LABS: Prothrombin Time 10.2 sec (9.3-11.0)
--- NOTE | 2020-02-08 22:33 | DI.VRAD_ITS ---
PROCEDURE INFORMATION: Exam: XR Chest, 1 View Exam date and time: 02/08/2020 10:15 PM Age: 44 years old Clinical indication: Patient HX: Palpitations for a few days TECHNIQUE: Imaging protocol: XR of the chest Views: 1 view. COMPARISON: CR XR CHEST 2V PA LATERAL 03/03/2019 9:59 PM FINDINGS: Lungs: Unremarkable. No consolidation. Pleural space: Unremarkable. No pleural effusion. No pneumothorax. Heart/Mediastinum: Unremarkable. No cardiomegaly. Bones/joints: Unremarkable. IMPRESSION: No acute findings. Dictated and Authenticated by: Josse Sandoval MD. Ordering:MILENA Schrader MD
[2020-02-08 22:35] LABS: ALT 23 U/L (14-59); AST 13 U/L (15-37); Albumin 3.5 g/dL (3.4-5.0); Alkaline Phosphatase 94 U/L (46-116); Anion Gap 8.3 mmol/L (3-11); BUN 8 mg/dL (7-18); Bilirubin, Total 0.3 mg/dL (0.2-1.0); CO2 23.7 mmol/L (21.0-32.0); CREATININE 0.84 mg/dL (0.55-1.02); Calcium 10.2 mg/dL (8.5-10.1); Chloride 105 mmol/L (98-107); Glucose 173 mg/dL (74-106); Magnesium 1.8 mg/dL (1.8-2.4); Potassium 3.7 mmol/L (3.5-5.1); Sodium 137 mmol/L (136-145); TSH (W/Ref FT4) 0.74 uIU/mL (0.36-3.74); Total Protein 6.5 g/dL (6.4-8.2); Troponin I < 0.05 ng/mL (<0.06)
--- NOTE | 2020-02-08 22:40 | ED.GENADUL_ITS ---
Discharge Plan Disposition Patient Disposition: HOME Condition: Improving Discharge Details Clinical Impression: Dehydration Primary Care Provider: Casey Price ED Provider: Franko Aiken [place] Meds and New Rx's Prescriptions: Continued Trulicity 1.5 mg/0.5 mL pen injector 0.75 mg SC QWEEK RF: 0 metformin [Glucophage XR] 500 MG tablet extended release 24 hr 500 mg PO HS RF: 0 citalopram [Celexa] 40 MG tablet 50 mg PO DAILY RF: 0 omeprazole magnesium [Prilosec OTC] 20 MG tablet,delayed release (DR/EC) 20 mg PO DAILY RF: 0 atenolol 25 MG tablet 25 mg PO DAILY RF: 0 ibuprofen 800 mg Tablet 800 mg PO Q8H PRNRF: 0 acetaminophen 500 mg Tablet 1,000 mg PO Q4H PRNRF: 0 lisinopril 5 MG tablet 5 mg PO DAILY RF: 0 bupropion HCl 150 mg tablet sustained-release 12 hr 150 mg PO DAILY RF: 0 lorazepam 1 mg tablet 1 mg PO DAILY PRNRF: 0 Byetta 5 mcg/dose (250 mcg/mL) 1.2 mL pen injector 5 mcg SUBCUT DAILY RF: 0 Discharge Instructions Instructions: Dehydration (ED) Additional Instructions: Laboratory studies and chest x-ray look fine. Rest and drink plenty of fluids to stay hydrated. Tick panel and COVID testing pending. Isolate until COVID test has returned. Follow-up with primary care end of the week if not better. Return to ED for mental status changes, chest pain, shortness of breath, other concerns. Stand Alone Forms: PENDING COVID-19 TESTING, Work Release Referrals: Casey Price PA [Primary Care Provider] - Discharge Data Discharge Date/Time-TO BE ENTERED AT DEPARTURE: 02/09/20 02:00 Medical Decision Making <TARAN Maier - Last Filed: 02/10/20 08:04> This is a 44-year-old female with history of diabetes, hypertension, anxiety, depression, presenting to the ER for fatigue, body aches, decreased appetite over the past few days. Initially had a scratchy throat but that resolved completely. She reports a fever at home of 100.9. Upon presentation she appears well, nontoxic. Blood pressure 164/92, pulse of 99, temperature 37.3 ?C, O2 sat 97% on room air. Physical examination is unremarkable for any obvious source of infection. Orthostatics were obtained, pulse did go up to 121 and blood pressure down to 144/90. Will obtain IV access, give 2 L normal saline for potential hypovolemia. Given her palpitations will initiate a cardiac work-up. Given her fever will obtain a urinalysis, chest x-ray, COVID, flu. Initial work-up reveals a white blood cell count of 7.72, hemoglobin 13.6, hematocrit 40.5, platelet count 242. INR 1.0, electrolytes unremarkable, creatinine 0.84 with an estimated GFR of greater than 60. Glucose 173. TSH 0.74. Initial troponin less than 0.05. Chest x-ray is unremarkable per radiology. EKG reveals sinus rhythm, ventricular rate 97. No STEMI. Please see official report by Dr. Aiken. 1055 PM, patient is resting comfortably, heart rate of 87. Urinalysis, repeat orthostatic vital signs once 2 L have been given, and repeat troponin pending. We will add on a tick panel. Repeat orthostatics improved. Patient subjectively feels significant i mprovement. Urinalysis unremarkable. Patient continues to receive IV fluid. Awaiting repeat troponin. COVID and tickborne panel pending Medical Records Medical records reviewed: Yes I reviewed the patient's medical records. Imaging Data Radiologic Study: Attestation: I personally reviewed and interpreted this imaging study as follows: Imaging: X-Ray Radiologist's impression: Chest x-ray unremarkable Lab Data Lab results reviewed: Yes I reviewed the patient's lab results. Lab results narrative: 02/08/20 22:00 Nasopharynx Influenza Types A,B Antigen - Final Laboratory Tests Range/Units 02/08/20 02/08/20 02/08/20 21:49 21:49 21:49 WBC (4.4-10.8) 10^3/uL 7.72 RBC (3.93-5.22) 10^6/uL 4.99 Hgb (11.2-15.7) g/dL 13.6 Hct (36.0-46.0) % 40.5 MCV (80-95) fL 81.2 MCH (27.0-33.0) pg 27.3 MCHC (32.0-36.0) % 33.6 RDW (11.7-14.6) % 13.6 Plt Count (130-400) 10^3/uL 242 MPV (8.0-11.0) fL 10.2 Immature Gran % 0.3 Neutrophils % 72.5 Lymphocytes % 15.3 Monocytes % 10.4 Eosinophils % 1.2 Basophils % 0.3 Nucleated RBC % % 0 Absolute Neutrophils (1.2-6.7) 10^3/uL 5.61 Absolute Lymphocytes (1.2-3.4) 10^3/uL 1.18 L Absolute Monocytes (0.1-0.8) 10^3/uL 0.80 Absolute Eosinophils (0.0-0.7) 10^3/uL 0.09 Absolute Basophils (0.0-0.2) 10^3/uL 0.02 PT (9.3-11.0) sec 10.2 INR (0.9-1.1) 1.0 Sodium (136-145) mmol/L 137 Potassium (3.5-5.1) mmol/L 3.7 Chloride (98-107) mmol/L 105 Carbon Dioxide (21.0-32.0) mmol/L 23.7 Anion Gap (3-11) mmol/L 8.3 BUN (7-18) mg/dL 8 Creatinine (0.55-1.02) mg/dL 0.84 Estimated GFR/1.73 m2 (mL/min/1.73m2) >= 60.00 Glucose (74-106) mg/dL 173 H Calcium (8.5-10.1) mg/dL 10.2 H Magnesium (1.8-2.4) mg/dL 1.8 Total Bilirubin (0.2-1.0) mg/dL 0.3 AST (15-37) U/L 13 L ALT (14-59) U/L 23 Alkaline Phosphatase (46-116) U/L 94 Troponin I (<0.06) ng/mL < 0.05 Total Protein (6.4-8.2) g/dL 6.5 Albumin (3.4-5.0) g/dL 3.5 TSH (0.36-3.74) uIU/mL 0.74 ECG Data Attestation: I personally reviewed and interpreted this ECG (s) as follows: Interpretation: Sinus rhythm, ventricular of 97. No STEMI <Franko Aiken MD - Last Filed: 02/09/20 01:57> Patient signed out to me pending second troponin. This has come back negative. She has COVID and tick panel pending. Will need to isolate until COVID test back. Should follow-up with primary care if not better towards the end of the week. Return to ED for mental status change, chest pain, syncope, other concerns. Lab Data Lab results reviewed: Yes I reviewed the patient's lab results. ECG Data Attestation: I personally reviewed and interpreted this ECG (s) as follows: Interpretation: see EKG HPI <TARAN Maier - Last Filed: 02/10/20 08:04> General Mode of arrival: ambulatory . Date/Time Provider Initiated Documentation: 02/08/20 21:14 . Limitations to Documentation: no limitations . Information obtained by: patient . HPI Narrative: This is a 44-year-old female with past medical history of diabetes, hypertension, anxiety, depression, presen ting to the ER today reporting that approximately 5 days ago she felt overall tired and at that time had a scratchy throat. The scratchy throat has resolved completely she reports that her overall fatigue has increased and is now associated with body aches. She reports lack of oral intake, both liquids and solids. She had 3 episodes of palpitations today which did resolve on their own. During the episode she had no pain or shortness of breath. She reports that now when she gets up she has a head matos and feels slightly off balance. She reports a history of chronic headaches and does not feel as though she is having a headache that is unlike her typical headaches. Today she took her temperature at home and it was 100.9. She does work at a [employer]. She had her flu shot approximately 1 month ago. She denies any trauma, visual changes, ear pain, neck pain, chest pain, shortness of breath, cough, abdominal pain, nausea, vomiting, dysuria, hematuria, constipation. She reports that her back is achy like body aches. The loose stool but has a history of IBS and this is unchanged from her baseline. Denies joint pain, skin rash, numbness, tingling, weakness. Related Data Home Medications Medication Instructions Recorded Confirmed citalopram [Celexa] 50 mg PO DAILY 07/16/12 01/03/20 omeprazole magnesium [Prilosec OTC] 20 mg PO DAILY 04/13/13 01/03/20 atenolol 25 mg PO DAILY 11/13/13 01/03/20 lisinopril 5 mg PO DAILY 06/06/16 01/03/20 metformin [Glucophage XR] 500 mg PO HS 09/04/16 01/03/20 Byetta 5 mcg SUBCUT DAILY 03/25/19 11/13/19 bupropion HCl 150 mg PO DAILY 03/25/19 01/03/20 lorazepam 1 mg PO DAILY PRN 03/25/19 01/03/20 acetaminophen 1,000 mg PO Q4H PRN 03/26/19 01/03/20 ibuprofen 800 mg PO Q8H PRN 03/26/19 01/03/20 dulaglutide 1.5 mg/0.5 mL 0.75 mg SC QWEEK 10/02/19 01/03/20 subcutaneous pen injector Allergies Allergy/AdvReac Type Severity Reaction Status Date / Time azithromycin Allergy Intermediate Hives Unverified 02/08/20 21:29 latex Allergy Intermediate Skin Rash Unverified 02/08/20 21:29 adhesive Allergy Mild Hives Unverified 02/08/20 21:29 amoxicillin trihydrate AdvReac Intermediate itching Unverified 02/08/20 21:29 [From Augmentin] potassium clavulanate AdvReac Intermediate itching Unverified 02/08/20 21:29 [From Augmentin] General Stated Complaint: Dizzy/Sync KARI: 3 Review of Systems <TARAN Maier - Last Filed: 02/10/20 08:04> Constitutional Constitutional: Reports fatigue, Reports fever(s), Reports headache(s) and Denies weakness Eyes Eyes: Denies change in vision ENT Ears, Nose, Mouth, and Throat: Denies ear discharge, Denies otalgia, Reports headache(s) and Reports sore throat (Scratchy throat, resolved) Cardiovascular Cardiovascular: Denies chest pain, Reports rapid heart rate and Denies dyspnea Respiratory Respiratory: Denies cough and Denies dyspnea Gastrointestinal Gastrointestinal: Denies abdominal pain, Denies nausea and Denies vomiting Genitourinary Genitourinary: Denies dysuria Musculoskeletal Musculoskeletal: Denies back pain, Reports myalgias, Denies numbness and Denies tingling Integumentary/Breasts Skin/Breast: Denies rash Neurologic Neurologic: Reports headache(s), Denies numbness, Denies tingling and Denies weakness Psychiatric Psychiatric: Reports anxiety and Reports depression Endocrine Endocrine: Reports fatigue PFSH <TARAN Maier - Last Filed: 02/10/20 08:04> Medical History (Updated 02/08/20 @ 23:52 by Franko Aiken MD) Anxiety Cholesteatoma of left ear Depression DM (diabetes mellitus), type 2 Essential hypertension Neck pain on right side Ovarian cyst Shoulder pain, right Syncope Surgical History Arthroplasty of knee Cholecystectomy Vaginal hysterectomy Social History Smoking/Tobacco Use Status: Former Tobacco Use Alcohol Intake: never Drug use: Never Substance use type: does not use Do you feel safe at home: Yes Do you feel safe in your relationship?: Yes Exam <TARAN Maier - Last Filed: 02/10/20 08:04> Const General: cooperative, healthy appearing, comfortable and no acute distress Orientation: alert, awake and oriented x3 HENMT Head: normal to inspection, normocephalic and atraumatic Ears: external ears normal, TM's normal bilaterally and EAC's normal Mouth: oral mucosae normal and moist mucous membranes Throat: posterior oropharynx normal Eyes General: appearance normal, both eyes and all related structures Periorbital: periorbital findings normal Eyelids: eyelids normal Conjunctivae: conjunctivae normal Sclera: sclerae normal Neck Neck: normal visual inspection, full ROM, no lymphadenopathy, no meningeal signs, trachea midline, supple and nontender Resp Effort & Inspection: normal respiratory effort and able to speak in complete sentences Auscultation: clear to auscultation bilaterally Cardio Rate: regular rate Rhythm: regular rhythm GI Palpation: soft, not firm, no guarding and nontender Auscultation: normal bowel sounds Back/Spine/Pelvis Back: No back tenderness Skin General skin exam: no rashes or lesions noted Neuro General: patient alert, patient awake, moves all extremities and no focal motor deficits Cognition: normal cognition Motor: muscle tone normal throughout Sensory Exam: no sensory deficits noted Extrem General: normal to inspection, full ROM, capillary refill normal, no pedal edema and no calf tenderness Psych Appearance: grossly normal Mental Status: mental status grossly normal Course <TARAN Maier - Last Filed: 02/10/20 08:04> Vital Signs Vital signs: Vital Signs Temperature 37.3 C 02/08/20 21:23 Pulse 99 H 02/08/20 21:23 Respiratory Rate 15 02/08/20 21:23 Blood Pressure 164/92 H 02/08/20 21:23 Pulse Oximetry 97 02/08/20 21:23 Temperature 37.3 C 02/08/20 21:23 Temperature Source Oral 02/08/20 21:23 Pulse 95 H 02/08/20 22:01 Pulse 99 H 02/08/20 22:09 Respiratory Rate 20 02/08/20 22:09 Respiratory Effort Non-Labored 02/08/20 21:30 Blood Pressure 138/81 02/08/20 22:01 Blood Pressure Mean 96 02/08/20 22:01 Blood Pressure Position Supine 02/08/20 21:23 Pulse Oximetry 98 02/08/20 22:09 Oxygen Delivery Method Room Air 02/08/20 21:23 Oxygen Flow Rate 0 02/08/20 21:23 Pain Level 3 02/08/20 21:23 Lab/Test Results Lab/Test Results: 02/08/20 22:00 Nasopharynx Influenza Types A,B Antigen - Final Laboratory Tests Range/Units 02/08/20 02/08/20 02/08/20 21:49 21:49 21:49 WBC (4.4-10.8) 10^3/uL 7.72 RBC (3.93-5.22) 10^6/uL 4.99 Hgb (11.2-15.7) g/dL 13.6 Hct (36.0-46.0) % 40.5 MCV (80-95) fL 81.2 MCH (27.0-33.0) pg 27.3 MCHC (32.0-36.0) % 33.6 RDW (11.7-14.6) % 13.6 Plt Count (130-400) 10^3/uL 242 MPV (8.0-11.0) fL 10.2 Immature Gran % 0.3 Neutrophils % 72.5 Lymphocytes % 15.3 Monocytes % 10.4 Eosinophils % 1.2 Basophils % 0.3 Nucleated RBC % % 0 Absolute Neutrophils (1.2-6.7) 10^3/uL 5.61 Absolute Lymphocytes (1.2-3.4) 10^3/uL 1.18 L Absolute Monocytes (0.1-0.8) 10^3/uL 0.80 Absolute Eosinophils (0.0-0.7) 10^3/uL 0.09 Absolute Basophils (0.0-0.2) 10^3/uL 0.02 PT (9.3-11.0) sec 10.2 INR (0.9-1.1) 1.0 Sodium (136-145) mmol/L 137 Potassium (3.5-5.1) mmol/L 3.7 Chloride (98-107) mmol/L 105 Carbon Dioxide (21.0-32.0) mmol/L 23.7 Anion Gap (3-11) mmol/L 8.3 BUN (7-18) mg/dL 8 Creatinine (0.55-1.02) mg/dL 0.84 Estimated GFR/1.73 m2 (mL/min/1.73m2) >= 60.00 Glucose (74-106) mg/dL 173 H Calcium (8.5-10.1) mg/dL 10.2 H Magnesium (1.8-2.4) mg/dL 1.8 Total Bilirubin (0.2-1.0) mg/dL 0.3 AST (15-37) U/L 13 L ALT (14-59) U/L 23 Alkaline Phosphatase (46-116) U/L 94 Troponin I (<0.06) ng/mL < 0.05 Total Protein (6.4-8.2) g/dL 6.5 Albumin (3.4-5.0) g/dL 3.5 TSH (0.36-3.74) uIU/mL 0.74 Sign Out <TARAN Maier - Last Filed: 02/10/20 08:04> Sign Out Data: Sign Out Comment: Work-up completed except for 3-hour troponin. Thus far work- up unremarkable. Orthostatic vital signs much improved and patient feels significantly improved. Last updated by Raciel Oakley PA at 02/08/20 23:46
--- NOTE | 2020-02-08 23:25 | NUR.NOTE ---
Nursing Note: Patient reports feeling much better. Visibly improved from previous orthostatic vitals with no flushing upon sitting and able to stand without closing eyes.
[2020-02-08 23:36] LABS: Bilirubin Negative (Negative); Blood Negative (Negative); Clarity Clear (Clear); Glucose Negative (Negative); Ketones Negative (Negative); Leukocyte Esterase Negative (Negative); Nitrite Negative (Negative); Specific Gravity 1.025 (1.005-1.025); Urobilinogen 0.2 EU/dL (Up TO 0.2)
[2020-02-09 00:01] VITALS: BP 138/80; PULSE 80; PULSE 88; RESP 14; O2SAT 96
[2020-02-09 00:31] VITALS: BP 132/83; PULSE 77; PULSE 84; RESP 20; O2SAT 96
[2020-02-09 01:01] VITALS: BP 137/95; PULSE 81; PULSE 87; RESP 16; O2SAT 97
[2020-02-09 01:31] VITALS: BP 130/79; PULSE 74; PULSE 79; RESP 22; O2SAT 97
[2020-02-09 01:47] LABS: Troponin I < 0.05 ng/mL (<0.06)
[2020-02-09 15:12] LABS: COVID-19 RT-PCR UVMMC Result Negative (Negative)
[2020-02-10 10:08] LABS: Lyme Ab w Rflx to Lyme Confirm Negative (Negative)
[2020-02-10 23:25] LABS: Anaplasma phagocytophilum Negative (Negative); B. miyamotoi PCR Negative (Negative); Babesia divergens/MO-1 Negative (Negative); Babesia duncani Negative (Negative); Babesia microti Negative (Negative); Ehrlichia chaffeensis Negative (Negative); Ehrlichia ewingii/canis Negative (Negative); Ehrlichia muris eauclairensis Negative (Negative)
== END 2020-02-09 02:00 | disposition home or self-care (01) ==
PROVIDERS: Physician Assistant; Emergency Provider Emergency Medicine; PCP Physician Assistant Medical
DX: E86.0 Dehydration (principal); R00.2 Palpitations; R50.9 Fever, unspecified; M79.10 Myalgia, unspecified site; Z03.818 Encounter for observation for suspected exposure to other biological agents ruled out; E11.9 Type 2 diabetes mellitus without complications; Z79.84 Long term (current) use of oral hypoglycemic drugs; I10 Essential (primary) hypertension
CPT/HCPCS: 36415; 80053; 87449; 87798; 93005; 96360; 99285; U0003; 71045; 81003; 83735; 84443; 84484; 85025; 85610; 86618; 93010

== ENCOUNTER 2020-06-15 14:34 | Outpatient (REF) | payer BC, SELFPAY | END 2020-06-15 14:35 | disposition home or self-care (01) | LOC: NCHCN 14:34 | PROVIDERS: PCP Physician Assistant Medical; Visit Provider Nurse Practitioner Family | DX: N89.8 Other specified noninflammatory disorders of vagina (principal) | CPT/HCPCS: 87480; 87510; 87660 ==

== ENCOUNTER 2020-07-18 12:13 | Emergency (ER) | payer BC, SELFPAY ==
[2020-07-18 12:24] VITALS: BP 141/79; PULSE 69; RESP 18; TEMP 36.4; O2SAT 98
[2020-07-18 12:52] LABS: Abs Immature Grans 0.02 10^3/uL (0.0-0.06); Absolute Basophil Count 0.04 10^3/uL (0.0-0.2); Absolute Eosinophil Count 0.17 10^3/uL (0.0-0.7); Absolute Lymphocyte Count 1.89 10^3/uL (1.2-3.4); Absolute Monocyte Count 0.51 10^3/uL (0.1-0.8); Absolute Neutrophil Count 4.54 10^3/uL (1.2-6.7); Basophils % 0.6; Eosinophils % 2.4; HCT 44.1 % (36.0-46.0); HGB 14.7 g/dL (11.2-15.7); Immature Grans % 0.3; Lymphocytes % 26.4; MCH 27.6 pg (27.0-33.0); MCHC 33.3 % (32.0-36.0); MCV 82.9 fL (80-95); MPV 9.4 fL (8.0-11.0); Monocytes % 7.1; Neutrophils % 63.2; Nucleated RBC 0 %; Platelet Count 306 10^3/uL (130-400); RBC 5.32 10^6/uL (3.93-5.22); RDW 13.2 % (11.7-14.6); RDW-SD 40.1 fL; WBC 7.17 10^3/uL (4.4-10.8)
[2020-07-18] MEDS: ACETAMINOPHEN 1,000 MG/100 ML BTL 400 MG IVPB (13:04)
--- NOTE | 2020-07-18 13:04 | ED.GENADUL_ITS ---
Discharge Plan Disposition Patient Disposition: HOME Condition: Serious Discharge Details Clinical Impression: Abdominal pain Primary Care Provider: Casey Price ED Provider: Burton Mackey Home Meds and New Rx's Prescriptions: Continued citalopram 10 mg Tablet 10 mg PO DAILY RF: 0 ondansetron HCl [Zofran] 4 mg Tablet 4 mg PO Q8H PRNRF: 0 clonazepam [Klonopin] 1 mg Tablet 1 mg PO HS PRNRF: 0 lorazepam 0.5 mg Tablet 0.5 mg PO DAILY PRNRF: 0 Proctofoam HC 1-1 % Foam 1 applic AR TID PRNRF: 0 Trulicity 1.5 mg/0.5 mL Pen Injector 1.5 mg SUBCUT ONCE RF: 0 citalopram [Celexa] 40 mg tablet 40 mg PO DAILY RF: 0 omeprazole magnesium [Prilosec OTC] 20 MG tablet,delayed release (DR/EC) 20 mg PO DAILY RF: 0 atenolol 25 MG tablet 25 mg PO DAILY RF: 0 ibuprofen 800 mg Tablet 800 mg PO Q8H PRNRF: 0 acetaminophen 500 mg Tablet 1,000 mg PO Q4H PRNRF: 0 metformin 500 mg Tablet Extended Release 24 Hr 500 mg PO DAILY RF: 0 lisinopril 5 MG tablet 5 mg PO DAILY RF: 0 bupropion HCl 150 mg tablet sustained-release 12 hr 150 mg PO DAILY RF: 0 lorazepam 1 mg tablet 1 mg PO DAILY PRNRF: 0 No Action diclofenac sodium 75 mg tablet,delayed release (DR/EC) 75 mg PO BID RF: 0 Discharge Instructions Instructions: Abdominal Pain (ED) Additional Instructions: Please contact your primary care physician to arrange follow-up. Return to the ER for any worsening or new concerning symptoms. Stand Alone Forms: Work Release Referrals: Casey Price PA [Primary Care Provider] - Discharge Data Discharge Date/Time-TO BE ENTERED AT DEPARTURE: 07/18/20 15:12 Medical Decision Making 1310??45-year-old female with right lower quadrant pain since yesterday. Tender right lower quadrant. Consider acute appendicitis or other surgical pathology. Plan to obtain CT the abdomen pelvis. Will give Tylenol IV for pain. --Labs reviewed and nondiagnostic. 1453 --CT the abdomen pelvis was reviewed and interpreted by radiology: IMPRESSION: 1. Fatty liver disease. 2. Status post cholecystectomy. 3. Diverticulosis. 4. 9 mm low-density nodule of the right adrenal gland. No further imaging workup is required. 5. Status post hysterectomy. Patient was reassessed and appears to be ambulating around the emergency room without any discomfort. Plan for discharge with outpatient follow-up. Recommended bowel rest with clear liquid diet today and tomorrow morning and advance slowly thereafter. Usual customary discharge instructions through the patient including encouraged to return immediately for any worsening or new concerning symptoms. HPI General Mode of arrival: ambulatory . Date/Time Provider Initiated Documentation: 07/18/20 12:23 . Limitations to Documentation: no limitations . Information obtained by: patient . HPI Narrative: 45-year-old female presents with chief complaint of abdominal pain. Pain localized to right lower quadrant. Pain moderate. Pain started yesterday has persisted. She has had some associated nausea. No urinary symptoms. Patient is status post remote cholecystectomy and partial hysterectomy. Patient notes prior history of bowel obstructions and that this does not feel like a bowel obstruction. Related Data Home Medications Medication Instructions Recorded Confirmed omeprazole magnesium [Prilosec OTC] 20 mg PO DAILY 04/13/13 07/18/20 atenolol 25 mg PO DAILY 11/13/13 07/18/20 lisinopril 5 mg PO DAILY 06/06/16 07/18/20 bupropion HCl 150 mg PO DAILY 03/25/19 07/18/20 lorazepam 1 mg PO DAILY PRN 03/25/19 07/18/20 acetaminophen 1,000 mg PO Q4H PRN 03/26/19 07/18/20 ibuprofen 800 mg PO Q8H PRN 03/26/19 07/18/20 Proctofoam HC 1 applic AR TID PRN 03/15/20 07/18/20 Trulicity 1.5 mg SUBCUT ONCE 03/15/20 07/18/20 citalopram 10 mg PO DAILY 03/15/20 07/18/20 clonazepam [Klonopin] 1 mg PO HS PRN 03/15/20 07/18/20 lorazepam 0.5 mg PO DAILY PRN 03/15/20 07/18/20 ondansetron HCl [Zofran] 4 mg PO Q8H PRN 03/15/20 07/18/20 citalopram 40 mg tablet 40 mg PO DAILY tab 07/01/20 07/18/20 metformin 500 mg PO DAILY 07/18/20 07/18/20 diclofenac sodium 75 mg 75 mg PO BID 07/20/20 tablet,delayed release Allergies Allergy/AdvReac Type Severity Reaction Status Date / Time azithromycin Allergy Intermediate Hives Unverified 07/20/20 11:17 latex Allergy Intermediate Skin Rash Unverified 07/20/20 11:17 adhesive Allergy Mild Hives Unverified 07/20/20 11:17 amoxicillin trihydrate AdvReac Intermediate itching Unverified 07/20/20 11:17 [From Augmentin] potassium clavulanate AdvReac Intermediate itching Unverified 07/20/20 11:17 [From Augmentin] vinyl Allergy Intermediate Uncoded 07/20/20 11:17 seasonal Allergy Mild Uncoded 07/20/20 11:17 General Stated Complaint: Abd Prob KARI: 3 Review of Systems All systems reviewed & are unremarkable except as noted in HPI and below Constitutional Constitutional: Denies fever(s) Gastrointestinal Gastrointestinal: Reports as per HPI PFSH Medical History Ankle edema Anxiety Cholesteatoma Cholesteatoma of left ear Depression DM (diabetes mellitus), type 2 Elbow joint pain Essential hypertension Fatigue Neck pain on right side Neck pain, chronic Obesity Ovarian cyst RLS (restless legs syndrome) Shoulder pain, right Skin lesions Syncope Surgical History Arthroplasty of knee Cholecystectomy Vaginal hysterectomy Social History Smoking/Tobacco Use Status: Former Tobacco Use Pack-years: 12 Smoking risk assessment performed?: Yes Alcohol Intake: never Drug use: Never Substance use type: does not use Do you feel safe at home: Yes Do you feel safe in your relationship?: Yes Exam Const General: cooperative and no acute distress HENMT Mouth: moist mucous membranes Eyes Conjunctivae: normal conjunctivae Sclera: normal sclerae Neck Neck: trachea midline and supple Resp Auscultation: clear to auscultation bilaterally, no rales, no rhonchi and no wheezes Cardio Rate: regular rate and not tachycardic Rhythm: regular rhythm GI Palpation: soft, not firm, no guarding, no masses, not rigid and tender in the RLQ Skin General skin exam: no rashes or lesions noted Neuro General: patient alert, patient awake, patient oriented x3 and tone normal Extrem General: no edema Psych Appearance: grossly normal Mental Status: mental status grossly normal Course Vital Signs Vital signs: Vital Signs Temperature 36.4 C L 07/18/20 12:24 Pulse 69 07/18/20 12:24 Respiratory Rate 18 07/18/20 12:24 Blood Pressure 141/79 H 07/18/20 12:24 Pulse Oximetry 98 07/18/20 12:24 Temperature 36.4 C L 07/18/20 12:24 Temperature Source Skin 07/18/20 12:24 Pulse 69 07/18/20 12:24 Respiratory Rate 18 07/18/20 12:24 Respiratory Effort Non-Labored 07/18/20 12:31 Blood Pressure 141/79 H 07/18/20 12:24 Blood Pressure Position Sitting 07/18/20 12:24 Pulse Oximetry 98 07/18/20 12:24 Oxygen Delivery Method Room Air 07/18/20 12:24 Oxygen Flow Rate 0 07/18/20 12:24 Pain Level 7 07/18/20 12:24 Lab/Test Results Lab/Test Results: Laboratory Tests Range/Units 07/18/20 12:44 WBC (4.4-10.8) 10^3/uL 7.17 RBC (3.93-5.22) 10^6/uL 5.32 H Hgb (11.2-15.7) g/dL 14.7 Hct (36.0-46.0) % 44.1 MCV (80-95) fL 82.9 MCH (27.0-33.0) pg 27.6 MCHC (32.0-36.0) % 33.3 RDW (11.7-14.6) % 13.2 Plt Count (130-400) 10^3/uL 306 MPV (8.0-11.0) fL 9.4 Immature Gran % 0.3 Neutrophils % 63.2 Lymphocytes % 26.4 Monocytes % 7.1 Eosinophils % 2.4 Basophils % 0.6 Nucleated RBC % % 0 Absolute Neutrophils (1.2-6.7) 10^3/uL 4.54 Absolute Lymphocytes (1.2-3.4) 10^3/uL 1.89 Absolute Monocytes (0.1-0.8) 10^3/uL 0.51 Absolute Eosinophils (0.0-0.7) 10^3/uL 0.17 Absolute Basophils (0.0-0.2) 10^3/uL 0.04
[2020-07-18 13:06] LABS: ALT 48 U/L (14-59); AST 17 U/L (15-37); Alkaline Phosphatase 93 U/L (46-116); Anion Gap 6.6 mmol/L (3-11); BUN 14 mg/dL (7-18); Bilirubin, Total 0.5 mg/dL (0.2-1.0); CO2 28.4 mmol/L (21.0-32.0); CREATININE 0.9 mg/dL (0.55-1.02); Calcium 10.3 mg/dL (8.5-10.1); Chloride 103 mmol/L (98-107); Glucose 116 mg/dL (74-106); Lipase 131 U/L (73-393); Sodium 138 mmol/L (136-145); Total Protein 7.1 g/dL (6.4-8.2)
[2020-07-18 13:36] LABS: Bilirubin Negative (Negative); Blood Negative (Negative); Clarity Clear (Clear); Glucose Negative (Negative); Ketones Negative (Negative); Leukocyte Esterase Negative (Negative); Nitrite Negative (Negative); Specific Gravity >= 1.030 (1.005-1.025); pH 5.5 (5-8)
[2020-07-18] MEDS: Normal Saline - Diluent 50 ML VIAL IV (13:48)
[2020-07-18] MEDS: Omnipaque 350 MG/ML 100 ML BTL IJ (13:49)
--- NOTE | 2020-07-18 13:51 | DI.CT_ITS ---
EXAM: CT ABDOMEN PELVIS W INDICATION: rlq pain 1 day. COMPARISON: CT CT ABDOMEN PELVIS W from 12/07/2018 TECHNIQUE: FINDINGS: CT examination of the abdomen and pelvis was performed with a bolus infusion of 100 cc of Omnipaque 3 50. Images obtained through the lung bases are unremarkable. There is mild hepatic steatosis with no focal hepatic lesion identified. Gallbladder has been surgically removed, no biliary dilatation seen. Pancreas appears normal. Spleen is unremarkable in appearance. Adrenals appear normal except for a 9 millimeter low-attenuation right adrenal nodule, unchanged from prior CT of December 2018.. The kidneys are unremarkable with no evidence of hydronephrosis, nephrolithiasis, or renal mass.. Ur inary bladder unremarkable. Abdominal aorta is of normal diameter and no major vascular abnormality is seen. No abdominal wall hernia. No abdominal or pelvic adenopathy. There is an apparent prior hysterectomy versus uterine atrophy. Ovaries nonvisualized. Appendix is normal. No evidence of diverticulitis or bowel obstruction. IMPRESSION: No evidence of acute intra-abdominal process. RADIATION DOSE DELIVERED: 1,373.7mGy.cm Total DLP 1,373.7mGy.cm Total DLP
--- NOTE | 2020-07-18 14:15 | DI.VRAD_ITS ---
PROCEDURE INFORMATION: Exam: CT Abdomen And Pelvis With Contrast Exam date and time: 07/18/2020 12:52 PM Age: 45 years old Clinical indication: Abdominal pain; Patient HX: Rlq pain 1 day TECHNIQUE: Imaging protocol: Computed tomography of the abdomen and pelvis with contrast. Radiation optimization: All CT scans at this facility use at least one of these dose optimization techniques: automated exposure control; mA and/or kV adjustment per patient size (includes targeted exams where dose is matched to clinical indication); or iterative reconstruction. Contrast material: OMNI 350; Contrast volume: 100 ml; Contrast route: INTRAVENOUS (IV); COMPARISON: CT ABDOMEN PELVIS W 12/07/2018 11:56 PM FINDINGS: Liver: The liver is diffusely decreased in density. Gallbladder and bile ducts: The gallbladder is surgically absent. Pancreas: Normal. No ductal dilation. Spleen: Normal. No splenomegaly. Adrenal glands: There is a 9 mm low-density nodule of the right adrenal gland. Kidneys and ureters: Normal. No hydronephrosis. Stomach and bowel: Diverticulosis of the colon is present. Appendix: No evidence of acute appendicitis. Intraperitoneal space: Unremarkable. No free air. No significant fluid collection. Vasculature: Unremarkable. No abdominal aortic aneurysm. Lymph nodes: Unremarkable. No enlarged lymph nodes. Urinary bladder: Unremarkable as visualized. Reproductive: The uterus is surgically absent. No adnexal masses are seen. Bones/joints: Unremarkable. No acute fracture. Soft tissues: Unremarkable. IMPRESSION: 1. Fatty liver disease. 2. Status post cholecystectomy. 3. Diverticulosis. 4. 9 mm low-density nodule of the right adrenal gland. No further imaging workup is required. 5. Status post hysterectomy. Dictated and Authenticated by: Julito Aguirre MD. Ordering:TORI Manrique MD
[2020-07-18 15:03] VITALS: BP 113/66; PULSE 88; RESP 20; O2SAT 96
== END 2020-07-18 15:12 | disposition home or self-care (01) ==
PROVIDERS: Emergency Provider Student in an Organized Health Care Education/Training Program; PCP Physician Assistant Medical
DX: R10.31 Right lower quadrant pain (principal); R11.0 Nausea
CPT/HCPCS: 36415; 80053; 83690; 96365; 99285; 74177; 81003; 85025; 99284; J0131; J3490

== ENCOUNTER → 2020-08-03 01:56 | Outpatient (CLI) | payer BC, SELFPAY ==
--- NOTE | 2020-08-03 09:45 | DI.MRI_ITS ---
EXAM: MR CERVICAL SPINE WO CLINICAL HISTORY: RT CERVICAL RADICULOPATHY, TECHNIQUE: Multiplanar multisequence MRI of the cervical spine was performed without intravenous con trast. COMPARISON: MR MRI - CERVICAL SPINE WO CONT from 06/27/[address] NECK W from 03/26/[address] NECK W from 03/26/2019 FINDINGS: Exam is limited by patient motion. BONES: Vertebral body heights are maintained. Intervertebral disc spaces are normal. Alignment is nor mal. Bone marrow signal intensity is within normal limits. CERVICAL CORD: Craniovertebral junction is unremarkable. The cervical cord is normal size and signal intensity. SOFT TISSUES: Left thyroid nodule partially included in the field of view. Seen on previous CT exami nations. C2-3: No disc herniation or bulge is identified. C3-4: Small endplate osteophytes projecting laterally. No disc herniation or bulge is identified. C4-5: Moderate loss of disc height. Broad-based disc osteophytes. Bilateral lower neural foraminal narrowing. There is effacement of the anterior CSF space. C5-6: Mild loss of disc height. Disc osteophytes projecting eccentrically toward the right side, cau sing severe right neural foraminal narrowing. There is some effacement of the anterior CSF space, gr eater on the right.. C6-7: Small disc osteophytes. Mild neural foraminal narrowing. No significant central canal stenosi s.. C7-T1: No disc herniation or bulge is identified. IMPRESSION: Limited exam due to patient motion. Prominent disc osteophytes greatest at C4-5 and C5-6 causing mil d central canal stenosis.. There is severe right neural foraminal narrowing at C5-6. DATA REPOSITORY:
== END ==
PROVIDERS: PCP Physician Assistant Medical; Visit Provider Physician Assistant Medical
DX: M54.12 Radiculopathy, cervical region (principal); M25.78 Osteophyte, vertebrae; M48.02 Spinal stenosis, cervical region
CPT/HCPCS: 72141

== ENCOUNTER 2020-08-17 09:30 | Outpatient (CLI) | payer BC, SELFPAY ==
--- NOTE | 2020-08-17 06:00 | DI.RAD_ITS ---
EXAM: XR PAIN CLINIC CERVICAL SP 2V CLINICAL HISTORY: Dx: Cervical Radiculopathy TECHNIQUE: 2D and realtime digital imaging was performed. CONTRAST MATERIAL: Refer to procedure report. COMPARISON: No exams were available for comparison FINDINGS: Fluoroscopy was provided for Dr. Spencer during the performance of a cervical epidural steroid injection. Please refer to the procedure report for complete details. Fluoro time: 48.1 seconds IMPRESSION:
[2020-08-17 09:39] VITALS: BP 115/73; PULSE 66; RESP 18; TEMP 36.9; O2SAT 98
[2020-08-17] MEDS: Lactated Ringers 1,000 ML 80 ML IV (10:10)
[2020-08-17] MEDS: Midazolam 2 MG/2 ML VIAL IVP (10:13)
[2020-08-17] MEDS: Omnipaque 240 MG/ML 50 ML BTL IJ (10:24)
[2020-08-17 10:25] VITALS: BP 135/86; PULSE 69; RESP 10; O2SAT 97
[2020-08-17] MEDS: Dexamethasone Sod. Phos./Pres-Free 10 MG/ML VIAL IJ (10:25)
--- NOTE | 2020-08-17 10:30 | PDOC.PAIN ---
Pain Clinic Procedure Note Procedure Note Procedure Note: Cervical Epidural Steroid Injection ROSY STONE has been referred to the [facility] for interlaminar cervical epidural steroid injection. Pre-operative diagnosis: cervical radiculopathy Post-operative diagnosis: same as above COMMENTS: patient had previously received RITESH by Dr Bowles, last injection was in 07/23/2018, each injection typically provides 12 month to 15 months of pain relief. Her neck and right arm pain recurred in early 2019, but due to covid-19 pandemic, she has waited until now to schedule a repeat RITESH. Patient was interviewed and the medical record reviewed. There were no medical, pharmacologic, radiographic or other structural contraindications to attempting fluoroscopically guided epidural steroid injection. Risks and expected side effects as well as potential benefit of the procedure were reviewed and voiced concerns addressed. The printed consent form was signed and witnessed. Standard time-out procedure was performed. The patient was placed in the prone position on the fluoroscopy table and automated blood pressure cuff and pulse oximeter applied. The skin entry point for entering the epidural space by a midline T1-T2 interlaminar approach was identified under fluoroscopy and marked. Following thorough Chlorhexadine preparation of the skin and draping and 1% lidocaine infiltration of the skin entry point and subcutaneous tissues, an 17 gauge Tuohy needle was placed under fluoroscopic guidance and with loss of resistance technique into the epidural space. Upon needle placement and loss of resistance there were no paresthesiae or return of blood or CSF through the needle. Then a 19 gauge radio-opaque Arrow Catheter was threaded through the Touhy needle until it reached approximately C5 level. 1ml of Omnipaque 240 were injected with clear epidural spread in the A/P, oblique views. 15mg of preservative-free Dexamethasone with 1ml sterile normal saline were injected through the needle with no unusual discomfort expressed. The needle was removed without difficulty. A bandage was placed. Vital signs were stable throughout the procedure and were as recorded in the docflowsheet by the nursing staff. If given, dosages of intravenous drugs for anxiolysis and analgesia were documented in MAR. Follow up plans and appointments were discussed. Post procedure instruction was given as documented in nursing documentation and having met discharge criteria and was discharged from the [facility]. COMMENTS: patient received 1mg of IV versed for this procedure. Akshat Spencer MD Pain Management CC: Casey Price
== END 2020-08-17 09:31 | disposition home or self-care (01) ==
PROVIDERS: PCP Physician Assistant Medical; Visit Provider Internal Medicine
DX: M54.12 Radiculopathy, cervical region (principal)
CPT/HCPCS: 62321; 72040; J2250; Q9967

== ENCOUNTER 2020-12-28 21:42 | Emergency (ER) | payer BC, SELFPAY ==
[2020-12-28] VITALS (14 sets, daily range): BP systolic 135–156; BP diastolic 77–105; PULSE 57–66; RESP 18; TEMP 36.4–36.5; O2SAT 95–99
--- NOTE | 2020-12-28 21:45 | DI.CT_ITS ---
Exam(s) CT RENAL COLIC WO EXAM: CT RENAL COLIC WO CLINICAL HISTORY: right flank pain, r/o stone/appe. TECHNIQUE: Imaging Protocol: Axial computed tomography images with coronal and sagittal reformatted images were created and reviewed CONTRAST MATERIAL: Intravenous: none Oral: None COMPARISON: CT CT ABDOMEN PELVIS W from 07/18/2020 FINDINGS: VISUALIZED LUNG BASES: No nodules nor pleural effusions evident. ABDOMEN: There is no ascites. LIVER: There are no obvious focal hepatic lesions evident of this noninfused study. There is mild st eatosis evident. GALLBLADDER/BILIARY: The gallbladder is again noted be surgically absent. CBD is not dilated. PANCREAS: No evidence of pancreatic mass nor dilatation of the pancreatic duct. SPLEEN: Spleen is not enlarged. No obvious intrasplenic lesions. ADRENALS: Small 9 x 8 millimeter hypodense nodule in the right adrenal gland remains unchanged and is probably a small adenoma. There are no obvious nodules in the opposite-left adrenal gland. KIDNEYS:No cysts evident. No solid renal masses. No calculi nor hydronephrosis. . ABDOMINAL AORTA: Abdominal aorta is not enlarged. LYMPH NODES: There is no retroperitoneal nor paraaortic adenopathy. ABDOMINAL WALL: No evidence of significant anterior abdominal wall hernia. GI: There is no evidence of bowel obstruction, free air, nor abscess. PELVIS: LYMPH NODES: There is no intrapelvic nor inguinal adenopathy. GI: No evidence of appendicitis.There diverticuli in the sigmoid. There is some very mild streaking around 1 of the diverticuli. This probably consistent with element of diverticulitis. URINARY BLADDER: Unremarkable. REPRODUCTIVE: Uterus is surgically absent. Ovaries not identified. No free fluid in the pelvis. OSSEOUS: No significant osseous lesions. IMPRESSION: 1. Sigmoid diverticulosis. There is mild streaking around 1 of the diverticuli which may indicate orourke btle diverticulitis. 2. Previous cholecystectomy and hysterectomy. No significant dilatation of the biliary tree. No elizabeth dence of bowel obstruction. 3. Mild hepatic steatosis. No discrete focal hepatic lesions. RADIATION DOSE DELIVERED: 1,572.74mGy.cm Total DLP DATA REPOSITORY: All CT scans at this facility are submitted to the National Radiology Data Registry (NRDR) Dose Index Registry (DIR) with the [employer] (ACR). RADIATION OPTIMIZATION: All CT scans at this facility use at least one of these dose optimization te chniques: automated exposure control; mA and/or kV adjustment per patient size (includes targeted exa ms where dose is matched to clinical indication); or iterative reconstruction.
--- NOTE | 2020-12-28 21:59 | W.ED.GENAD ---
Discharge Plan Disposition Patient Disposition: HOME Condition: Good Discharge Details Clinical Impression: Acute right flank pain Primary Care Provider: Casey Prcie ED Provider: Silas Coleman Home Meds and New Rx's Prescriptions: Continued ondansetron HCl [Zofran] 4 mg Tablet 4 mg PO Q8H PRNRF: 0 clonazepam [Klonopin] 1 mg Tablet 1 mg PO HS PRNRF: 0 lorazepam 0.5 mg Tablet 0.5 mg PO DAILY PRNRF: 0 Proctofoam HC 1-1 % Foam 1 applic SD TID PRNRF: 0 diclofenac sodium 75 mg tablet,delayed release (DR/EC) 75 mg PO DAILY PRNRF: 0 omeprazole magnesium [Prilosec OTC] 20 MG tablet,delayed release (DR/EC) 20 mg PO DAILY RF: 0 atenolol 25 MG tablet 25 mg PO DAILY RF: 0 ibuprofen 800 mg Tablet 800 mg PO Q8H PRNRF: 0 acetaminophen 500 mg Tablet 1,000 mg PO Q4H PRNRF: 0 metformin 500 mg Tablet Extended Release 24 Hr 500 mg PO DAILY RF: 0 gabapentin 300 mg Capsule 900 mg PO QHS RF: 0 escitalopram oxalate 20 mg tablet 20 mg PO DAILY RF: 0 bupropion HCl 150 mg tablet sustained-release 12 hr 150 mg PO DAILY RF: 0 lorazepam 1 mg tablet 1 mg PO DAILY PRNRF: 0 Discharge Instructions Instructions: Flank Pain (ED) Additional Instructions: At this time the CAT scan shows no evidence of kidney stone, diverticulitis or other significant abnormality. I suspect the pain is likely secondary to a muscular cause. Please use a heating pad, Tylenol and Motrin, and the pain pill as needed. If you do need to take the pain pill did not take it with Tylenol as the pain pill already has a small amount of Tylenol. Please avoid any heavy lifting greater than 5 to 10 pounds for the next 3 to 4 days. If you notice any worsening of your symptoms, or any new symptoms such as vomiting, diarrhea, fever, chills, shortness of breath, chest pain, numbness, weakness, or fainting , please return immediately to the emergency department for reevaluation. Please follow up with your primary care provider as soon as possible for reassessment and reevaluation. As always, it was a pleasure participating in your medical care today. Stand Alone Forms: Work Release Referrals: Casey Price PA [Primary Care Provider] - Medical Decision Making 45-year-old female with a past medical history of cholecystectomy, hysterectomy, restless leg syndrome, diabetes, who presents today for evaluation of right flank pain. Patient states that 1 to 2 months ago she had an episode of right flank pain, it went away on its own with fluids and cranberry juice. She had resolution of the pain, then it returned 2 days ago. She describes it as an ache in the right flank that goes around the flank. Seems to be made worse with movement, but also is associated with painful urination. She admits to intermittent dark urine, she denies fever or chills. She denies vomiting or diarrhea. She denies any trauma to her back. She denies numbness tingling or weakness. Patient did take a pain medication and half a milligram of Ativan and this did not improve her pain no other complaints at this time. No other modifying factors. Physical exam demonstrates mild right flank tenderness, right-sided abdominal tenderness. No evidence of a surgical abdomen. Differential is highest for kidney stone, diverticulitis, or back strain. Will give morphine, get a CAT scan, monitor closely and reassess. 11:32 PM Laboratory work-up is returned unremarkable, patient's pain is resolved after morphine and Toradol. No neurologic deficits. No bowel or bladder incontinence, no saddle anesthesia, no other concerning red flags. Symptoms at this time appear consistent with mild muscle strain. No evidence of diverticulitis, or kidney stone or appendicitis. With the patient's pain relieved, patient will be discharged home. Discussed red flags for which to return. I have extensively reviewed the treatment plan and discharge instructions with the patient. I have addressed all patient concerns at this time. The patient was made aware of what symptoms to monitor for that would warrant a return to the emergency department. Discussed the plan with the patient, they demonstrate verbal understanding and agreement with our assessment and plan at this time. The documentation in this chart was dictated using [employer] dictation software. Please excuse any dictation errors. FINDINGS: Lungs: Lung bases are clear. Heart: Cardiac chambers appear grossly normal. Mediastinal space: There is a small fat containing hiatal hernia. Liver: Mild hepatic steatosis. Gallbladder and bile ducts: Status post cholecystectomy. Pancreas: No peripancreatic inflammatory infiltration or fluid. No ductal dilation. Spleen: The spleen is enlarged at 17 cm craniocaudad. Adrenal glands: Normal. No mass. Kidneys and ureters: No nephrolithiasis, ureterolithiasis or hydronephrosis. Stomach and bowel: There is diverticulosis most severe in the descending and sigmoid colon but no definite diverticulitis. There is no small bowel obstruction or ileus. Appendix: No evidence of appendicitis. No appendicolith. Intraperitoneal space: No free fluid, free air or focal inflammatory infiltration. Vasculature: No abdominal aortic aneurysm. The portal, splenic and superior mesenteric veins appear patent. Lymph nodes: No enlarged lymph nodes within the retroperitoneal space or mesentery. Urinary bladder: Unremarkable as visualized. Reproductive: The uterus is surgically absent and the ovaries appear normal. Bones/joints: Unremarkable. No acute fracture. No osteolytic or blastic bone lesions. Soft tissues: Paraspinous and extracorporeal soft tissues are unremarkable. IMPRESSION: 1. Diverticulosis without convincing evidence of diverticulitis. 2. Mild hepatic steatosis. 3. Status post cholecystectomy and hysterectomy. 4. Small fat containing hiatal hernia. 5. Splenomegaly. Thank you for allowing us to participate in the care of your patient. Dictated and Authenticated by: Lyndon Barreto MD 12/28/2020 10:56 PM Eastern Time ([place] & [place]) HPI General Date/Time Provider Initiated Documentation: 12/28/20 21:48. HPI Narrative: 45-year-old female with a past medical history of cholecystectomy, hysterectomy, restless leg syndrome, diabetes, who presents today for evaluation of right flank pain. Patient states that 1 to 2 months ago she had an episode of right flank pain, it went away on its own with fluids and cranberry juice. She had resolution of the pain, then it returned 2 days ago. She describes it as an ache in the right flank that goes around the flank. Seems to be made worse with movement, but also is associated with painful urination. She admits to intermittent dark urine, she denies fever or chills. She denies vomiting or diarrhea. She denies any trauma to her back. She denies numbness tingling or weakness. Patient did take a pain medication and half a milligram of Ativan and this did not improve her pain no other complaints at this time. No other modifying factors. Related Data Home Medications Medication Instructions Recorded Confirmed omeprazole magnesium [Prilosec OTC] 20 mg PO DAILY 04/13/13 12/28/20 atenolol 25 mg PO DAILY 11/13/13 12/28/20 bupropion HCl 150 mg PO DAILY 03/25/19 12/28/20 lorazepam 1 mg PO DAILY PRN 03/25/19 12/28/20 acetaminophen 1,000 mg PO Q4H PRN 03/26/19 12/28/20 ibuprofen 800 mg PO Q8H PRN 03/26/19 12/28/20 Proctofoam HC 1 applic SD TID PRN 03/15/20 12/28/20 clonazepam [Klonopin] 1 mg PO HS PRN 03/15/20 12/28/20 lorazepam 0.5 mg PO DAILY PRN 03/15/20 12/28/20 ondansetron HCl [Zofran] 4 mg PO Q8H PRN 03/15/20 12/28/20 metformin 500 mg PO DAILY 07/18/20 12/28/20 diclofenac sodium 75 mg 75 mg PO DAILY PRN 07/20/20 12/28/20 tablet,delayed release gabapentin 900 mg PO QHS 08/17/20 12/28/20 escitalopram oxalate 20 mg PO DAILY 12/28/20 12/28/20 Allergies Allergy/AdvReac Type Severity Reaction Status Date / Time azithromycin Allergy Intermediate Hives Unverified 12/28/20 21:55 latex Allergy Intermediate Skin Rash Unverified 12/28/20 21:55 adhesive Allergy Mild Hives Unverified 12/28/20 21:55 amoxicillin trihydrate AdvReac Intermediate itching Unverified 12/28/20 21:55 [From Augmentin] potassium clavulanate AdvReac Intermediate itching Unverified 12/28/20 21:55 [From Augmentin] vinyl Allergy Intermediate Uncoded 12/28/20 21:55 seasonal Allergy Mild Uncoded 12/28/20 21:55 General Stated Complaint: FlankPain KARI: 3 Review of Systems All systems reviewed & are unremarkable except as noted in HPI and below PFSH Medical History Ankle edema Anxiety Cholesteatoma Cholesteatoma of left ear Depression DM (diabetes mellitus), type 2 Elbow joint pain Essential hypertension Fatigue Neck pain on right side Neck pain, chronic Obesity Ovarian cyst RLS (restless legs syndrome) Shoulder pain, right Skin lesions Syncope Surgical History Arthroplasty of knee Cholecystectomy Vaginal hysterectomy Social History Smoking/Tobacco Use Status: Former Tobacco Use Pack-years: 12 Smoking risk assessment performed?: Yes Alcohol Intake: never Drug use: Never Substance use type: does not use Do you feel safe at home: Yes Do you feel safe in your relationship?: Yes Exam Narrative Exam Narrative: 1.Const: Well-nourished, Well-developed, appearing stated age 2.Eyes: PERRL, no conjunctival injection, and symmetrical lids. 3.ENT: Atraumatic external nose and ears. Moist MM. Neck: Symmetric, trachea midline, No thyromegaly. 4.CVS: +S1/S2, No murmurs or gallops. Peripheral pulses 2+ and equal in all extremities. Brisk capillary refill in all extremities. 5.RESP: Unlabored respiratory effort. Clear to auscultation bilaterally. No wheezes rales or rhonchi 6.GI: Soft, nondistended, no hepatosplenomegaly. No guarding or rebound. Mild tenderness in the right flank and right side of the abdomen. Mild CVA tenderness on the right. 7.MSK: Normocephalic/Atraumatic, Extremities w/o deformity or ttp No cyanosis or clubbing, Normal movement of all extremities 8.Skin: Warm, Dry. No rashes or lesions. 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 Sensation grossly intact, no focal neurologic deficits. 10.Psych: (AAO) x3. Appropriate mood and affect Course Vital Signs Vital signs: Vital Signs Temperature 36.5 C 12/28/20 21:44 Pulse 66 12/28/20 21:44 Respiratory Rate 18 12/28/20 21:44 Blood Pressure 144/105 H 12/28/20 21:44 Pulse Oximetry 98 12/28/20 21:44 Temperature 36.5 C 12/28/20 21:44 Temperature Source Temporal Artery Scan 12/28/20 21:44 Pulse 66 12/28/20 21:44 Respiratory Rate 18 12/28/20 21:44 Blood Pressure 144/105 H 12/28/20 21:44 Blood Pressure Position Sitting 12/28/20 21:44 Pulse Oximetry 98 12/28/20 21:44 Oxygen Delivery Method Room Air 12/28/20 21:44 Oxygen Flow Rate 0 12/28/20 21:44
[2020-12-28 22:08] LABS: Bilirubin Negative (Negative); Blood Negative (Negative); Clarity Clear (Clear); Glucose Negative (Negative); Ketones Negative (Negative); Leukocyte Esterase Negative (Negative); Nitrite Negative (Negative); Specific Gravity 1.015 (1.005-1.025); Urobilinogen 0.2 EU/dL (Up TO 0.2)
[2020-12-28] MEDS: MORPHine 4 MG/ML SYR IVP (22:10)
[2020-12-28 22:13] LABS: Abs Immature Grans 0.01 10^3/uL (0.0-0.06); Absolute Basophil Count 0.02 10^3/uL (0.0-0.2); Absolute Eosinophil Count 0.23 10^3/uL (0.0-0.7); Absolute Lymphocyte Count 2.49 10^3/uL (1.2-3.4); Absolute Monocyte Count 0.54 10^3/uL (0.1-0.8); Absolute Neutrophil Count 4.06 10^3/uL (1.2-6.7); Basophils % 0.3; Eosinophils % 3.1; HCT 41.9 % (36.0-46.0); HGB 13.4 g/dL (11.2-15.7); Immature Grans % 0.1; Lymphocytes % 33.9; MCH 27.2 pg (27.0-33.0); MPV 9.9 fL (8.0-11.0); Monocytes % 7.3; Neutrophils % 55.3; Nucleated RBC 0 %; Platelet Count 289 10^3/uL (130-400); RBC 4.93 10^6/uL (3.93-5.22); RDW 13.2 % (11.7-14.6); RDW-SD 41.1 fL; WBC 7.35 10^3/uL (4.4-10.8)
[2020-12-28 22:26] LABS: ALT 52 U/L (14-59); AST 20 U/L (15-37); Albumin 3.8 g/dL (3.4-5.0); Alkaline Phosphatase 82 U/L (46-116); Anion Gap 4.2 mmol/L (3-11); BUN 13 mg/dL (7-18); Bilirubin, Total 0.3 mg/dL (0.2-1.0); CO2 30.8 mmol/L (21.0-32.0); Calcium 10.1 mg/dL (8.5-10.1); Chloride 106 mmol/L (98-107); Estimated GFR 59.43 (mL/min/1.73m2); Glucose 108 mg/dL (74-106); Potassium 4.1 mmol/L (3.5-5.1); Sodium 141 mmol/L (136-145); Total Protein 6.6 g/dL (6.4-8.2)
--- NOTE | 2020-12-28 22:31 | NUR.NOTE ---
Returns from DI per cart. Denies pain. Call light in reach.Nursing Note:
[2020-12-28] MEDS: Ketorolac 15 MG/ML VIAL IVP (22:34)
--- NOTE | 2020-12-28 22:56 | DI.VRAD_ITS ---
PROCEDURE INFORMATION: Exam: CT Abdomen And Pelvis Without Contrast Exam date and time: 12/28/2020 9:58 PM Age: 45 years old Clinical indication: Other: R flank; Prior surgery; Surgery date: 6+ months; Surgery type: Cholecystectomy and hysterectomy; Patient HX: Right flank pain, R/O stone/appe TECHNIQUE: Imaging protocol: Computed tomography of the abdomen and pelvis without contrast. Radiation optimization: All CT scans at this facility use at least one of these dose optimization techniques: automated exposure control; mA and/or kV adjustment per patient size (includes targeted exams where dose is matched to clinical indication); or iterative reconstruction. COMPARISON: CT ABDOMEN PELVIS W 07/18/2020 1:48 PM FINDINGS: Lungs: Lung bases are clear. Heart: Cardiac chambers appear grossly normal. Mediastinal space: There is a small fat containing hiatal hernia. Liver: Mild hepatic steatosis. Gallbladder and bile ducts: Status post cholecystectomy. Pancreas: No peripancreatic inflammatory infiltration or fluid. No ductal dilation. Spleen: The spleen is enlarged at 17 cm craniocaudad. Adrenal glands: Normal. No mass. Kidneys and ureters: No nephrolithiasis, ureterolithiasis or hydronephrosis. Stomach and bowel: There is diverticulosis most severe in the descending and sigmoid colon but no definite diverticulitis. There is no small bowel obstruction or ileus. Appendix: No evidence of appendicitis. No appendicolith. Intraperitoneal space: No free fluid, free air or focal inflammatory infiltration. Vasculature: No abdominal aortic aneurysm. The portal, splenic and superior mesenteric veins appear patent. Lymph nodes: No enlarged lymph nodes within the retroperitoneal space or mesentery. Urinary bladder: Unremarkable as visualized. Reproductive: The uterus is surgically absent and the ovaries appear normal. Bones/joints: Unremarkable. No acute fracture. No osteolytic or blastic bone lesions. Soft tissues: Paraspinous and extracorporeal soft tissues are unremarkable. IMPRESSION: 1. Diverticulosis without convincing evidence of diverticulitis. 2. Mild hepatic steatosis. 3. Status post cholecystectomy and hysterectomy. 4. Small fat containing hiatal hernia. 5. Splenomegaly. Dictated and Authenticated by: Lyndon Barreto MD. Ordering:ALIDA Rosen MD
== END 2020-12-28 23:41 | disposition home or self-care (01) ==
PROVIDERS: Emergency Provider Student in an Organized Health Care Education/Training Program; PCP Physician Assistant Medical
DX: R10.9 Unspecified abdominal pain (principal)
CPT/HCPCS: 36415; 80053; 96374; 96375; 99284; 74176; 81003; 85025; J1885; J2270

== ENCOUNTER 2021-01-26 16:38 | Emergency (ER) | payer BC, SELFPAY ==
[2021-01-26 16:45] VITALS: BP 152/98; PULSE 93; RESP 18; TEMP 37; O2SAT 95
--- NOTE | 2021-01-26 16:49 | ED.GENADUL_ITS ---
Discharge Plan Disposition Patient Disposition: HOME Condition: Improving Discharge Details Clinical Impression: Laceration of hand, left Primary Care Provider: Casey Price ED Provider: Fawad Lopez Home Meds and New Rx's Prescriptions: Continued ondansetron HCl [Zofran] 4 mg Tablet 4 mg PO Q8H PRNRF: 0 clonazepam [Klonopin] 1 mg Tablet 1 mg PO HS PRNRF: 0 lorazepam 0.5 mg Tablet 0.5 mg PO DAILY PRNRF: 0 Proctofoam HC 1-1 % Foam 1 applic [place] TID PRNRF: 0 diclofenac sodium 75 mg tablet,delayed release (DR/EC) 75 mg PO DAILY PRNRF: 0 omeprazole magnesium [Prilosec OTC] 20 MG tablet,delayed release (DR/EC) 20 mg PO DAILY RF: 0 atenolol 25 MG tablet 25 mg PO DAILY RF: 0 ibuprofen 800 mg Tablet 800 mg PO Q8H PRNRF: 0 acetaminophen 500 mg Tablet 1,000 mg PO Q4H PRNRF: 0 metformin 500 mg Tablet Extended Release 24 Hr 500 mg PO DAILY RF: 0 gabapentin 300 mg Capsule 900 mg PO QHS RF: 0 escitalopram oxalate 20 mg tablet 20 mg PO DAILY RF: 0 bupropion HCl 150 mg tablet sustained-release 12 hr 150 mg PO DAILY RF: 0 lorazepam 1 mg tablet 1 mg PO DAILY PRNRF: 0 Discharge Instructions Instructions: Laceration (ED) Additional Instructions: Return for suture removal 7 to 10 days time. No soaking of the wound until healed. May replace bandage once daily after gentle soap and water clean and pat dry. Return to the ER for any acute concerns. Stand Alone Forms: Work Release Medical Decision Making 45-year-old female who was doing the dishes at home and cut her left hand webbing between the index finger and thumb on a kitchen knife. Her tetanus is up-to-date. She has normal motor and sensory function of the digit although her two-point discrimination at the thumb is 2 cm. Patient anesthetized, irrigated, repaired with, 5 4-0 interrupted sutures. Lavon ssed. Patient understands home care. She is stable for discharge. HPI General Mode of arrival: ambulatory . Date/Time Provider Initiated Documentation: 01/26/21 16:39 . Limitations to Documentation: no limitations . Information obtained by: patient . History of Present Illness 45 year old F presents to the emergency department with the chief complaint of Left hand laceration from knife, described as mild, Quality is described as dull and constant, and is localized to the left and upper extremity. Patient reports no radiation. Patient started experiencing this minute(s) and it has been constant. No relieving factors improve symptom(s), No exacerbating factors reported . Patient did receive the following treatments prior to arrival, none Related Data Home Medications Medication Instructions Recorded Confirmed omeprazole magnesium [Prilosec OTC] 20 mg PO DAILY 04/13/13 01/26/21 atenolol 25 mg PO DAILY 11/13/13 01/26/21 bupropion HCl 150 mg PO DAILY 03/25/19 01/26/21 lorazepam 1 mg PO DAILY PRN 03/25/19 01/26/21 acetaminophen 1,000 mg PO Q4H PRN 03/26/19 01/26/21 ibuprofen 800 mg PO Q8H PRN 03/26/19 01/26/21 Proctofoam HC 1 applic [place] TID PRN 03/15/20 12/28/20 clonazepam [Klonopin] 1 mg PO HS PRN 03/15/20 01/26/21 lorazepam 0.5 mg PO DAILY PRN 03/15/20 01/26/21 ondansetron HCl [Zofran] 4 mg PO Q8H PRN 03/15/20 01/26/21 metformin 500 mg PO DAILY 07/18/20 01/26/21 diclofenac sodium 75 mg 75 mg PO DAILY PRN 07/20/20 01/26/21 tablet,delayed release gabapentin 900 mg PO QHS 08/17/20 01/26/21 escitalopram oxalate 20 mg PO DAILY 12/28/20 12/28/20 Allergies Allergy/AdvReac Type Severity Reaction Status Date / Time azithromycin Allergy Intermediate Hives Unverified 01/26/21 16:49 latex Allergy Intermediate Skin Rash Unverified 01/26/21 16:49 adhesive Allergy Mild Hives Unverified 01/26/21 16:49 amoxicillin trihydrate AdvReac Intermediate itching Unverified 01/26/21 16:49 [From Augmentin] potassium clavulanate AdvReac Intermediate itching Unverified 01/26/21 16:49 [From Augmentin] vinyl Allergy Intermediate Uncoded 01/26/21 16:49 seasonal Allergy Mild Uncoded 01/26/21 16:49 General Stated Complaint: Laceration KARI: 4 Review of Systems Narrative: Tetanus up-to-date. Otherwise healthy recently and no other complaints. No numbness of the finger tip. [facility] Medical History Ankle edema Anxiety Cholesteatoma Cholesteatoma of left ear Depression DM (diabetes mellitus), type 2 Elbow joint pain Essential hypertension Fatigue Neck pain on right side Neck pain, chronic Obesity Ovarian cyst RLS (restless legs syndrome) Shoulder pain, right Skin lesions Syncope Surgical History Arthroplasty of knee Cholecystectomy Vaginal hysterectomy Social History Smoking/Tobacco Use Status: Former Tobacco Use Pack-years: 12 Smoking risk assessment performed?: Yes Alcohol Intake: never Drug use: Never Substance use type: does not use Do you feel safe at home: Yes Do you feel safe in your relationship?: Yes Exam Narrative Exam Narrative: GEN: awake, alert, oriented 3. Pleasant, well groomed, interactive. HEAD: Normocephalic, atraumatic EYES: PERRL, EOMI CHEST/RESP: No respiratory distress EXT: Full ROM,, distal sensation of the left thumb is symmetric and two-point discrimination is approximately 2 cm. Laceration to the left hand webbing space between thumb and index finger. Full range of motion of the thumb is intact, motor graded 5 out of 5. Neuro: Grossly normal neurologic exam, conversant, interactive. Psych: Speech fluent, thoughts congruent, affect normal Course Vital Signs Vital signs: Vital Signs Temperature 37 C 01/26/21 16:45 Pulse 93 H 01/26/21 16:45 Respiratory Rate 18 01/26/21 16:45 Blood Pressure 152/98 H 01/26/21 16:45 Pulse Oximetry 95 01/26/21 16:45 Temperature 37 C 01/26/21 16:45 Temperature Source Temporal Artery Scan 01/26/21 16:45 Pulse 93 H 01/26/21 16:45 Respiratory Rate 18 01/26/21 16:45 Blood Pressure 152/98 H 01/26/21 16:45 Blood Pressure Position Sitting 01/26/21 16:45 Pulse Oximetry 95 01/26/21 16:45 Oxygen Delivery Method Room Air 01/26/21 16:45 Oxygen Flow Rate 0 01/26/21 16:45 Pain Level 8 01/26/21 16:45 Procedures Laceration Laceration 1: Site: hand Side (If applicable): left Size (cm): 2 Description: linear Depth: simple, single layer Local Anesthetic: Lidocaine 1% Amount of anesthesia used (mL): 1 Pre-repair: wound explored, irrigated extensively and deep structures intact Skin layer closed with: nylon Size (cm): 4-0 Number of sutures: 5 Technique: simple, interrupted
== END 2021-01-26 17:10 | disposition home or self-care (01) ==
PROVIDERS: Emergency Provider Emergency Medicine; PCP Physician Assistant Medical
DX: S61.412A Laceration without foreign body of left hand, initial encounter (principal); W26.0XXA Contact with knife, initial encounter
CPT/HCPCS: 12001

== ENCOUNTER 2021-02-03 09:41 | Outpatient (CLI) | payer BC, SELFPAY ==
--- NOTE | 2021-02-03 | DI.RAD_ITS ---
Exam(s) XR KNEE LT 3V AP,LAT,CYNTHIA EXAM: XR KNEE LT 3V AP,LAT,CYNTHIA CLINICAL HISTORY: LT KNEE PAIN M25.562. TECHNIQUE: 2D digital imaging was performed of the left knee. Three images were obtained. AP, late ral and PA tunnel views were obtained. COMPARISON: No previous for comparison. FINDINGS: BONES: No acute fracture is present. No bony destructive lesion is seen. Small osteophyte at the sup erior patella. JOINTS: There is joint space narrowing and periarticular spurring in all 3 joint compartments. Findi ngs are most marked in the femoral tibial joint. No joint effusion is seen. SOFT TISSUE: Normal. IMPRESSION: Marked osteoarthritis of the left knee. DATA REPOSITORY: RADIATION DOSE DELIVERED:
== END 2021-02-03 10:01 ==
PROVIDERS: PCP Physician Assistant Medical; Visit Provider Physician Assistant Medical
DX: M25.562 Pain in left knee (principal); M17.12 Unilateral primary osteoarthritis, left knee
CPT/HCPCS: 73562

== ENCOUNTER 2021-02-10 10:52 | Emergency (ER) | payer BC, SELFPAY ==
[2021-02-10] VITALS (31 sets, daily range): BP systolic 126–152; BP diastolic 74–91; PULSE 55–64; RESP 16; TEMP 36.4–36.7; O2SAT 92–99
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
[2021-02-10 12:06] LABS: Abs Immature Grans 0.01 10^3/uL (0.0-0.06); Absolute Basophil Count 0.03 10^3/uL (0.0-0.2); Absolute Eosinophil Count 0.16 10^3/uL (0.0-0.7); Absolute Lymphocyte Count 1.75 10^3/uL (1.2-3.4); Absolute Neutrophil Count 4.33 10^3/uL (1.2-6.7); Basophils % 0.4; Eosinophils % 2.4; HCT 39.2 % (36.0-46.0); HGB 13.1 g/dL (11.2-15.7); Immature Grans % 0.1; Lymphocytes % 25.8; MCH 27.3 pg (27.0-33.0); MCHC 33.4 % (32.0-36.0); MCV 81.8 fL (80-95); MPV 9.7 fL (8.0-11.0); Monocytes % 7.4; Neutrophils % 63.9; Nucleated RBC 0 %; Platelet Count 247 10^3/uL (130-400); RBC 4.79 10^6/uL (3.93-5.22); RDW-SD 38.5 fL; WBC 6.78 10^3/uL (4.4-10.8)
[2021-02-10 12:25] LABS: ALT 59 U/L (14-59); Albumin 3.6 g/dL (3.4-5.0); Alkaline Phosphatase 81 U/L (46-116); BUN 15 mg/dL (7-18); Bilirubin, Total 0.4 mg/dL (0.2-1.0); CREATININE 0.8 mg/dL (0.55-1.02); Chloride 108 mmol/L (98-107); Glucose 125 mg/dL (74-106); Lipase 111 U/L (73-393); Potassium 3.9 mmol/L (3.5-5.1); Sodium 142 mmol/L (136-145); Total Protein 6.2 g/dL (6.4-8.2)
[2021-02-10 12:37] LABS: AST 25 U/L (15-37)
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
[2021-02-10] MEDS: Normal Saline - Diluent 50 ML VIAL IV (13:42)
[2021-02-10] MEDS: Omnipaque 350 MG/ML 100 ML BTL IJ (13:43)
[2021-02-10] MEDS: Normal Saline Flush 10 ML SYR IVP (13:44)
[2021-02-10] MEDS: Ketorolac 30 MG/ML VIAL IVP (14:02)
[2021-02-10 14:22] LABS: Bilirubin Negative (Negative); Blood Negative (Negative); Clarity Clear (Clear); Glucose Negative (Negative); Ketones Negative (Negative); Leukocyte Esterase Negative (Negative); Nitrite Negative (Negative); Specific Gravity 1.015 (1.005-1.025); Urobilinogen 0.2 EU/dL (Up TO 0.2)
== END 2021-02-10 14:45 | disposition home or self-care (01) ==
PROVIDERS: Emergency Provider Physician Assistant; PCP Physician Assistant Medical
DX: M54.50 Low back pain, unspecified (principal); M54.2 Cervicalgia; R10.30 Lower abdominal pain, unspecified; R91.8 Other nonspecific abnormal finding of lung field; V47.5XXA Car driver injured in collision with fixed or stationary object in traffic accident, initial encounter; Z87.891 Personal history of nicotine dependence
CPT/HCPCS: 74177; 80053; 83690; 96374; 99285; 70450; 71260; 72125; 81003; 85025; 99284; J1885; J3490

== ENCOUNTER 2021-03-22 16:01 | Outpatient (REF) | payer BC, SELFPAY ==
[2021-03-22 14:34] LABS: Hemoglobin A1C 6.7 % (<5.7)
[2021-03-22 14:58] LABS: Calculated LDL 101 mg/dL (<100); Cholesterol 163 mg/dL (<200); Ferritin 43 ng/mL (8-252); HDL Cholesterol 33 mg/dL (40-60); Magnesium 1.9 mg/dL (1.8-2.4); Triglyceride 145 mg/dL (<150)
== END 2021-03-22 16:02 | disposition home or self-care (01) ==
LOC: NCHCN 16:01
PROVIDERS: PCP Physician Assistant Medical; Visit Provider Physician Assistant Medical
DX: E11.9 Type 2 diabetes mellitus without complications (principal); I10 Essential (primary) hypertension; G25.81 Restless legs syndrome
CPT/HCPCS: 80061; 82728; 83036; 83735

== ENCOUNTER 2021-04-02 13:41 | Emergency (ER) | payer BC, SELFPAY ==
--- NOTE | 2021-04-02 13:44 | W.ED.GENAD ---
Discharge Plan Disposition Patient Disposition: HOME Condition: Improving Discharge Details Clinical Impression: Neck pain Primary Care Provider: Casey Price ED Provider: Raciel Oakley Home Meds and New Rx's Prescriptions: New cyclobenzaprine 5 mg tablet 5 mg PO TID PRNQty: 6 RF: 0 Continued ondansetron HCl [Zofran] 4 mg Tablet 4 mg PO Q8H PRNRF: 0 clonazepam [Klonopin] 1 mg Tablet 1 mg PO HS PRNRF: 0 lorazepam 0.5 mg Tablet 0.5 mg PO DAILY PRNRF: 0 Proctofoam HC 1-1 % Foam 1 applic NM TID PRNRF: 0 diclofenac sodium 75 mg tablet,delayed release (DR/EC) 75 mg PO DAILY PRNRF: 0 omeprazole magnesium [Prilosec OTC] 20 MG tablet,delayed release (DR/EC) 20 mg PO DAILY RF: 0 ibuprofen 800 mg Tablet 800 mg PO Q8H PRNRF: 0 acetaminophen 500 mg Tablet 1,000 mg PO Q4H PRNRF: 0 metformin 500 mg Tablet Extended Release 24 Hr 500 mg PO DAILY RF: 0 gabapentin 300 mg Capsule 900 mg PO QHS RF: 0 escitalopram oxalate 20 mg tablet 20 mg PO DAILY RF: 0 bupropion HCl 150 mg tablet sustained-release 12 hr 150 mg PO DAILY RF: 0 lorazepam 1 mg tablet 1 mg PO DAILY PRNRF: 0 naproxen sodium [Aleve] 220 mg Tablet 440 mg PO PRN PRNRF: 0 lisinopril 5 mg tablet PO DAILY AM RF: 0 Discharge Instructions Instructions: Neck Pain (ED) Additional Instructions: Flexeril as directed, this medication may cause drowsiness, do not mix with alcohol or operate machinery. [id number] Tylenol and/or Motrin as directed for discomfort. Cool and/or warm compresses every 2 hours for 20 minutes. Gentle stretching as tolerated. Please contact both your primary care provider and your pain clinic on Sunday to discuss your symptoms and need for outpatient reevaluation. Watch for new or worsening symptoms and return to the ER for any concerns Stand Alone Forms: Work Release Medical Decision Making 45-year-old female, [id number], reporting acute on chronic right shoulder and neck pain after waking up morning. Reports taking an anti-inflammatory medication today. Denies recent illness or trauma. No additional concerns or questions at this time. She is past due for her scheduled steroid injection in her neck. Clinically she appears well, nontoxic, neurologically intact. Given the no recent trauma, no clear indication obtain x-ray at this time. There is no midline point tenderness. Will provide a Toradol IM injection, she drove herself here so will provide a prescription for Flexeril and a work note for tomorrow. Patient will contact both her primary care provider and her pain clinic team on Sunday to discuss her ongoing discomfort need for outpatient reevaluation Standard discharge and return precautions provided This documentation was generated using Mine[employer] system, please disregard any oddities of phrase or misspellings. Medical Records Medical records reviewed: Yes I reviewed the patient's medical records. HPI General Mode of arrival: ambulatory. Date/Time Provider Initiated Documentation: 04/02/21 13:42. Limitations to Documentation: no limitations. Information obtained by: patient. HPI Narrative: This is a 45-year-old female, past medical history that includes anxiety, depression, diabetes, hypertension, chronic neck pain, presenting to the ER today complaining of right sided neck and shoulder discomfort that began upon waking morning. She denies any obvious trauma. Patient states that she did take an anti-inflammatory today with no significant relief. She states that she is seen by the pain clinic for this issue and typically receives steroid injections, she is overdue for her steroid injection because of insurance issue, not scheduled to be seen until April 20. She denies any fever, chest pain, shortness of breath, radiation of her pain down her right arm. She does report mild tingling in the area she is having pain. She states that she had to call out of work today, and is requesting a work note tomorrow as she cannot work in her current condition. She did drive herself here to the ER today. Pain is moderate at rest, worse with movement of her neck or of her right shoulder above 90 degrees. Related Data Home Medications Medication Instructions Recorded Confirmed omeprazole magnesium [Prilosec OTC] 20 mg PO DAILY 04/13/13 04/02/21 bupropion HCl 150 mg PO DAILY 03/25/19 04/02/21 lorazepam 1 mg PO DAILY PRN 03/25/19 04/02/21 acetaminophen 1,000 mg PO Q4H PRN 03/26/19 02/10/21 ibuprofen 800 mg PO Q8H PRN 03/26/19 04/02/21 Proctofoam HC 1 applic NM TID PRN 03/15/20 04/02/21 clonazepam [Klonopin] 1 mg PO HS PRN 03/15/20 04/02/21 lorazepam 0.5 mg PO DAILY PRN 03/15/20 04/02/21 ondansetron HCl [Zofran] 4 mg PO Q8H PRN 03/15/20 04/02/21 metformin 500 mg PO DAILY 07/18/20 04/02/21 diclofenac sodium 75 mg 75 mg PO DAILY PRN 07/20/20 04/02/21 tablet,delayed release gabapentin 900 mg PO QHS 08/17/20 04/02/21 escitalopram oxalate 20 mg PO DAILY 12/28/20 04/02/21 cyclobenzaprine 5 mg PO TID PRN #6 tab 04/02/21 lisinopril PO DAILY AM 04/02/21 naproxen sodium [Aleve] 440 mg PO PRN PRN 04/02/21 04/02/21 Previous Rx's Medication Instructions Recorded cyclobenzaprine 5 mg PO TID PRN #6 tab 04/02/21 Allergies Allergy/AdvReac Type Severity Reaction Status Date / Time azithromycin Allergy Intermediate Hives Unverified 04/02/21 13:49 latex Allergy Intermediate Skin Rash Unverified 04/02/21 13:49 adhesive Allergy Mild Hives Unverified 04/02/21 13:49 amoxicillin trihydrate AdvReac Intermediate itching Unverified 04/02/21 13:49 [From Augmentin] potassium clavulanate AdvReac Intermediate itching Unverified 04/02/21 13:49 [From Augmentin] vinyl Allergy Intermediate Uncoded 04/02/21 13:49 seasonal Allergy Mild Uncoded 04/02/21 13:49 General KARI: 2 Review of Systems Constitutional Constitutional: Denies fever(s) and Denies headache(s) ENT Ears, Nose, Mouth, and Throat: Denies headache(s) and Reports neck pain Cardiovascular Cardiovascular: Denies chest pain and Denies dyspnea Respiratory Respiratory: Denies dyspnea Gastrointestinal Gastrointestinal: Denies abdominal pain, Denies nausea and Denies vomiting Musculoskeletal Musculoskeletal: Denies deformity, Denies arthralgias, Reports neck pain, Denies numbness, Reports stiffness and Reports tingling Neurologic Neurologic: Denies headache(s), Denies numbness and Reports tingling [facility] Medical History Ankle edema Anxiety Cholesteatoma Cholesteatoma of left ear Depression DM (diabetes mellitus), type 2 Elbow joint pain Essential hypertension Fatigue Neck pain on right side Neck pain, chronic Obesity Ovarian cyst RLS (restless legs syndrome) Shoulder pain, right Skin lesions Syncope Surgical History Arthroplasty of knee Cholecystectomy Vaginal hysterectomy Social History Smoking/Tobacco Use Status: Former Tobacco Use Pack-years: 12 Smoking risk assessment performed?: Yes Alcohol Intake: never Drug use: Never Substance use type: does not use Do you feel safe at home: Yes Do you feel safe in your relationship?: Yes Exam Const General: cooperative, healthy appearing, comfortable and no acute distress Orientation: alert, awake and oriented x3 HENMT Head: normal to inspection, normocephalic and atraumatic Eyes General: appearance normal, both eyes and all related structures Conjunctivae: conjunctivae normal Neck Neck: normal visual inspection, full ROM, no meningeal signs, trachea midline, supple and tender (Diffuse right sided) Other: Full range of motion of her neck, pain increases with any directional movement, worse with ipsilateral movement Resp Effort & Inspection: normal respiratory effort and able to speak in complete sentences Auscultation: clear to auscultation bilaterally Cardio Rate: regular rate Rhythm: regular rhythm Back/Spine/Pelvis Back: no CVA tenderness Other: Diffuse discomfort right posterior shoulder blade. Skin General skin exam: no rashes or lesions noted Neuro General: patient alert, patient awake, moves all extremities and no focal motor deficits Cognition: normal cognition Speech: speech normal Gait: normal gait Motor: muscle tone normal throughout Sensory Exam: no sensory deficits noted Extrem General: normal to inspection, full ROM and capillary refill normal Other: Right upper extremity neuro, vascular, tendon intact. Full range of motion. No swelling, erythema, ecchymosis, tenderness to palpation. 5 out of 5 strength. Normal radial pulse and capillary refill. Psych Appearance: grossly normal Mental Status: mental status grossly normal
[2021-04-02 13:45] VITALS: BP 160/94; PULSE 97; RESP 18; TEMP 36.6; O2SAT 100
[2021-04-02] MEDS: Ketorolac 60 MG/2 ML VIAL IM (14:11)
[2021-04-02 14:41] VITALS: BP 160/94; PULSE 97; RESP 18; TEMP 36.6; O2SAT 100
== END 2021-04-02 14:41 | disposition home or self-care (01) ==
PROVIDERS: Emergency Provider Physician Assistant; PCP Physician Assistant Medical
DX: M54.2 Cervicalgia (principal); M25.511 Pain in right shoulder; G89.29 Other chronic pain
CPT/HCPCS: 96372; 99284; J1885

== ENCOUNTER 2021-04-20 09:00 | Outpatient (CLI) | payer BC, SELFPAY ==
--- NOTE | 2021-04-20 06:00 | DI.RAD_ITS ---
Exam(s) XR PAIN CLINIC CERVICAL SP 2V EXAM: XR PAIN CLINIC CERVICAL SP 2V CLINICAL HISTORY: DX: Cervical Radiculopathy TECHNIQUE: 2D and realtime digital imaging was performed. Radiologist not present. CONTRAST MATERIAL: None. COMPARISON: No exams were available for comparison FINDINGS: Fluoroscopy was provided for pain management therapy. Please refer to procedure report or details. Cumulative dose: Ka,r=12.72 mGy IMPRESSION: RADIATION DOSE DELIVERED:
[2021-04-20 09:34] VITALS: BP 122/90; PULSE 69; RESP 18; TEMP 36.6; O2SAT 98
[2021-04-20] MEDS: Midazolam 2 MG/2 ML VIAL IVP (10:17)
[2021-04-20] MEDS: Lactated Ringers 1,000 ML 80 ML IV (10:17)
[2021-04-20] MEDS: Dexamethasone Sod. Phos./Pres-Free 10 MG/ML VIAL IJ (10:21)
[2021-04-20 10:24] VITALS: BP 147/79; PULSE 78; RESP 18; O2SAT 97
[2021-04-20] MEDS: Omnipaque 240 MG/ML 50 ML BTL IJ (10:24)
--- NOTE | 2021-04-20 10:25 | PDOC.PAIN ---
Pain Clinic Procedure Note Procedure Note Procedure Note: Cervical Epidural Steroid Injection Suyapa Myrick has been referred to the [facility] for cervical epidural steroid injection. COMMENTS: She last had this procedure on 08/17/[address] Spencer. Her pre-procedure pain VAS was 6/10. DX: Cervical radiculopathy Ramez was interviewed and the medical record reviewed. There were no medical, pharmacologic, radiographic or other structural contraindications to attempting fluoroscopically guided epidural steroid injection. Risks and expected side effects as well as potential benefit of the procedure were reviewed with Ramez , and Ramez voiced concerns addressed. The printed consent form was signed and witnessed. Standard time-out procedure was performed. The patient was placed in the prone position on the fluoroscopy table and automated blood pressure cuff and pulse oximeter applied. The skin entry point for entering the epidural space by a midline C7-T1 interlaminar approach was identified under fluoroscopy and marked. Following thorough Chlorhexadine preparation of the skin and draping and 1% lidocaine infiltration of the skin entry point and subcutaneous tissues, an 18 gauge Tuohy needle was placed under fluoroscopic guidance and with loss of resistance technique into the C7-T1 epidural space. Upon needle placement and loss of resistance there were no paresthesiae or return of blood or CSF through the needle. 1 cc of Omnipaque 240 was injected with clear epidural spread in the A/P, lateral and oblique views. 10 mg of preservative free Dexomethasone was injected with no unusual discomfort expressed by Ramez. This was flushed with 1 cc of normal saline. The needle was removed without difficulty. Ramez 's vital signs were stable throughout the procedure and were as recorded in the docflowsheet by the nursing staff. Follow up plans and appointments were discussed with the Ramez. Post procedure instruction was given as documented in nursing documentation and having met discharge criteria, Ramez was discharged from the [facility]. COMMENTS: Post-procedure pain VAS was 0/10. Kailash Mays DO, MPH [facility]-Pain Management CC: Casey Price
== END 2021-04-20 09:01 | disposition home or self-care (01) ==
LOC: PC 09:01
PROVIDERS: PCP Physician Assistant Medical; Visit Provider Preventive Medicine Occupational Medicine
DX: M54.12 Radiculopathy, cervical region (principal)
CPT/HCPCS: 62321; 72040; J2250; Q9967

== ENCOUNTER 2021-07-01 08:45 | Emergency (ER) | payer BC, SELFPAY ==
[2021-07-01 08:50] VITALS: BP 155/91; PULSE 81; RESP 16; TEMP 36.6; O2SAT 98
[2021-07-01] MEDS: Ondansetron 4 MG/2 ML VIAL IVP (09:32)
[2021-07-01] MEDS: Lactated Ringers 1,000 ML 1000 ML IV (09:33)
[2021-07-01 09:35] LABS: Abs Immature Grans 0.01 10^3/uL (0.0-0.06); Absolute Basophil Count 0.03 10^3/uL (0.0-0.2); Absolute Eosinophil Count 0.15 10^3/uL (0.0-0.7); Absolute Lymphocyte Count 1.46 10^3/uL (1.2-3.4); Absolute Monocyte Count 0.34 10^3/uL (0.1-0.8); Absolute Neutrophil Count 3.81 10^3/uL (1.2-6.7); Basophils % 0.5; Eosinophils % 2.6; HCT 41.6 % (36.0-46.0); HGB 13.6 g/dL (11.2-15.7); Immature Grans % 0.2; Lymphocytes % 25.2; MCH 27.3 pg (27.0-33.0); MCHC 32.7 % (32.0-36.0); MCV 83.4 fL (80-95); Monocytes % 5.9; Neutrophils % 65.6; Nucleated RBC 0 %; Platelet Count 234 10^3/uL (130-400); RBC 4.99 10^6/uL (3.93-5.22); RDW 13.2 % (11.7-14.6); RDW-SD 40.3 fL
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
[2021-07-01 09:55] LABS: ALT 53 U/L (14-59); AST 18 U/L (15-37); Albumin 3.9 g/dL (3.4-5.0); Alkaline Phosphatase 114 U/L (46-116); Anion Gap 6.7 mmol/L (3-11); BUN 12 mg/dL (7-18); Bilirubin, Total 0.3 mg/dL (0.2-1.0); CO2 29.3 mmol/L (21.0-32.0); CREATININE 0.8 mg/dL (0.55-1.02); Calcium 10.6 mg/dL (8.5-10.1); Chloride 107 mmol/L (98-107); Glucose 156 mg/dL (74-106); Magnesium 2.1 mg/dL (1.8-2.4); Potassium 4.3 mmol/L (3.5-5.1); Sodium 143 mmol/L (136-145); Total Protein 6.7 g/dL (6.4-8.2)
== END 2021-07-01 11:24 | disposition home or self-care (01) ==
PROVIDERS: Emergency Provider Physician Assistant; PCP Physician Assistant Medical
DX: R19.7 Diarrhea, unspecified (principal); R11.0 Nausea
CPT/HCPCS: 36415; 80053; 96361; 96374; 99284; 83735; 84443; 85025; 99283; J2405

== ENCOUNTER 2021-09-12 15:41 | Outpatient (CLI) | payer BC, SELFPAY ==
--- NOTE | 2021-09-12 15:30 | DI.RAD_ITS ---
Exam(s) XR ELBOW LT COMPLETE EXAM: XR ELBOW LT COMPLETE CLINICAL HISTORY: left elbow pain. TECHNIQUE: 2D digital imaging was performed. Three views. COMPARISON: CR XR ELBOW RT COMPLETE from 10/02/2019 FINDINGS: BONES: No acute fracture is present. No bony destructive lesion is seen. JOINTS: The elbow is normally aligned. No joint effusion is seen. SOFT TISSUE: Normal. IMPRESSION: Unremarkable radiographs of the left elbow. DATA REPOSITORY: RADIATION DOSE DELIVERED:
== END 2021-09-12 15:42 | disposition home or self-care (01) ==
LOC: DIORS 15:42
PROVIDERS: PCP Physician Assistant Medical; Referring Provider Physician Assistant Medical; Visit Provider Physician Assistant
DX: M25.522 Pain in left elbow (principal)
CPT/HCPCS: 73080

== ENCOUNTER 2021-09-21 09:02 | Observation (INO) | payer BC, SELFPAY ==
[2021-09-21] VITALS (28 sets, daily range): BP systolic 114–167; BP diastolic 70–125; PULSE 63–86; RESP 10–27; TEMP 36.1–37.1; O2SAT 93–99
--- NOTE | 2021-09-21 09:00 | RT.EKG_ITS ---
APPROVED REPORT Exam: Resting ECG Reason for Exam: chest pain Patient Location: E HR:82 bpm ECG Measurements Heart Rate 82 AXIS GA 149 P 36 QRSd 88 QRS 26 QT 373 T 27 QTc 436 Conclusion Sinus rhythm...normal P axis, V-rate 60- 99
[2021-09-21 09:16] LABS: Abs Immature Grans 0.01 10^3/uL (0.0-0.06); Absolute Basophil Count 0.03 10^3/uL (0.0-0.2); Absolute Eosinophil Count 0.14 10^3/uL (0.0-0.7); Absolute Lymphocyte Count 1.89 10^3/uL (1.2-3.4); Absolute Monocyte Count 0.46 10^3/uL (0.1-0.8); Absolute Neutrophil Count 3.77 10^3/uL (1.2-6.7); Basophils % 0.5; Eosinophils % 2.2; HCT 41.8 % (36.0-46.0); HGB 13.8 g/dL (11.2-15.7); Immature Grans % 0.2; MCV 82 fL (80-95); MPV 9.5 fL (8.0-11.0); Monocytes % 7.3; Neutrophils % 59.8; Platelet Count 295 10^3/uL (130-400); RBC 5.11 10^6/uL (3.93-5.22); RDW 12.8 % (11.7-14.6); RDW-SD 38.2 fL
--- NOTE | 2021-09-21 09:30 | DI.CT_ITS ---
Exam(s) CT THORAX ABD/PEL CTA EXAM: CT THORAX ABD/PEL CTA f CLINICAL HISTORY: substernal chest pain, sudden, lt hand numb, htn. TECHNIQUE: Imaging Protocol: Axial computed tomography images with coronal and sagittal reformatted images were created and reviewed CONTRAST MATERIAL: Intravenous: Omnipaque 350 Contrast volume:100 ml Oral: None COMPARISON: CT CT CHEST/ABD/PEL W from 02/10/2021 FINDINGS: CTA: Aortic arch anatomy is conventional. The diameter of the ascending thoracic aorta is within nor mal limits, as is the diameter of the aortic arch and descending thoracic aorta.. There is no eviden ce of aortic dissection. No obvious atherosclerotic involvement of the thoracic aorta. The abdominal aorta appears unremarkable with minimal atherosclerotic involvement and no aneurysm nor significant findings at the aortic bifurcation. Common and external iliac arteries are nicely paten t and nonaneurysmal as are both common femoral arteries. Both internal iliac arteries are also nicel y patent. Celiac and superior mesenteric arteries are patent as is the inferior mesenteric artery. There is no significant stenosis in the renal arteries. PULMONARY ARTERIES: There are no intraluminal filling defects to suggest the presence of acute pulmon maritza emboli. CHEST: LUNGS: There are no infiltrates nor pleural effusions. No ominous pulmonary nodules. No pneumothora x. No significant focal findings in the trachea and mainstem bronchi. There is no bronchiectasis.. MEDIASTINUM: There is no hilar nor mediastinal adenopathy. Thyroid gland is abnormal. The right thyr oid lobe is grossly expanded by a large inhomogeneous nodule and the trachea is deviated towards the right side. Right thyroid lobe appears unremarkable. CARDIAC: Heart size is normal. There is no pericardial effusion. No significant shift of the interv entricular septum. No contrast reflux into the intrahepatic IVC. No evidence of obvious right heart strain. AORTA: Caliber of the thoracic aorta is within normal limits.There is no evidence of aortic dissectio n. ABDOMEN: There is no ascites. LIVER: Liver is hypodense implying steatosis. There are no obvious discrete focal hepatic lesions id entified. GALLBLADDER/BILIARY: The gallbladder is again noted to be surgically absent CBD is not dilated. PANCREAS: No evidence of pancreatic mass nor dilatation of the pancreatic duct. SPLEEN: Spleen size upper normal. No intrasplenic lesions identified. Splenic and portal veins are patent. ADRENALS: Again noted is a small nodule in the right adrenal gland measuring 1.7 x 1.0 cm, unchanged. This is probably an adenoma. Opposite-left adrenal gland unremarkable. KIDNEYS: No cysts evident. No calculi nor hydronephrosis. No solid renal masses. ABDOMINAL AORTA: The abdominal aorta is not enlarged. LYMPH NODES: There is no retroperitoneal nor para-aortic adenopathy. No obvious mesenteric masses. ABDOMINAL WALL: No evidence of significant anterior abdominal wall hernia. GI: There is no evidence of bowel obstruction, free air, nor abscess. PELVIS: LYMPH NODES: There is no intrapelvic nor inguinal adenopathy. GI: No evidence of appendicitis.Sigmoid diverticulosis but no evidence of acute diverticulitis. URINARY BLADDER: No calculi nor masses evident REPRODUCTIVE: Uterus is surgically absent. There are no abnormal adnexal masses nor free fluid in th e pelvis. OSSEOUS: No significant osseous lesions. Sclerotic density in the L4 vertebral body is unchanged and is probably a benign bone island therein. There are no lytic osseous lesions. IMPRESSION: 1. No evidence of aortic aneurysm nor aortic dissection. No pericardial effusion. Heart size is nor mal. 2. No evidence of pulmonary emboli and no evidence of right heart strain. 3. The left thyroid lobe is grossly expanded by large mass/nodule which deviates the trachea towards the opposite-right side. Ultrasound recommended. 4. No significant focal pulmonary findings nor pleural effusions. 5. Previous cholecystectomy and hysterectomy. No evidence of significant dilatation of the biliary tree. No bowel obstruction, free air, nor abscess. 6. Small nodule in the right adrenal gland is unchanged from prior studies. Probably an adenoma. 7. Sigmoid diverticulosis but no evidence of acute diverticulitis. Report called by myself to the ER physician RADIATION DOSE DELIVERED: 1,432.89mGy.cm Total DLP DATA REPOSITORY: All CT scans at this facility are submitted to the National Radiology Data Registry (NRDR) Dose Index Registry (DIR) with the [employer] ([employer]). RADIATION OPTIMIZATION: All CT scans at this facility use at least one of these dose optimization te chniques: automated exposure control; mA and/or kV adjustment per patient size (includes targeted exa ms where dose is matched to clinical indication); or iterative reconstruction.
[2021-09-21 09:32] LABS: ALT 36 U/L (14-59); AST 16 U/L (15-37); Albumin 3.8 g/dL (3.4-5.0); Alkaline Phosphatase 125 U/L (46-116); Anion Gap 9.1 mmol/L (3-11); BUN 13 mg/dL (7-18); Bilirubin, Total 0.5 mg/dL (0.2-1.0); CO2 25.9 mmol/L (21.0-32.0); CREATININE 0.9 mg/dL (0.55-1.02); Calcium 10.3 mg/dL (8.5-10.1); Chloride 103 mmol/L (98-107); Glucose 139 mg/dL (74-106); Magnesium 2.1 mg/dL (1.8-2.4); Potassium 3.8 mmol/L (3.5-5.1); Sodium 138 mmol/L (136-145); Total Protein 6.7 g/dL (6.4-8.2); Troponin I < 50 ng/L (<or=60)
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
[2021-09-21] MEDS: LORazepam 2 MG/ML VIAL 1 MG IVP (09:43)
[2021-09-21] MEDS: Normal Saline 500 ML IV (09:44)
--- NOTE | 2021-09-21 10:25 | NUR.NOTE ---
Return from DI. awaiting results. will CTM
--- NOTE | 2021-09-21 10:42 | NUR.NOTE ---
lights turned down so pt can rest. denies further needs at this time. will CTM
[2021-09-21 11:43] LABS: Troponin I < 50 ng/L (<or=60)
[2021-09-21 12:44] LABS: Source Nasal/Nares
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
[2021-09-21 13:45] LABS: Troponin I < 50 ng/L (<or=60)
[2021-09-21] MEDS: Acetaminophen 325 MG TAB 650 MG PO (15:24)
[2021-09-21 16:03] LABS: COVID-19 PCR Negative (Negative)
[2021-09-21 17:42] LABS: Troponin I < 50 ng/L (<or=60)
[2021-09-21] MEDS: Melatonin 3 MG TAB 6 MG PO (20:35)
[2021-09-21] MEDS: Escitalopram 20 MG TAB PO (20:36)
[2021-09-21] MEDS: Gabapentin 300 MG CAP 900 MG PO (20:36)
[2021-09-21] MEDS: LORazepam 0.5 MG TAB PO (20:37)
[2021-09-21] MEDS: clonazePAM 1 MG TAB PO (20:37)
[2021-09-22 00:14] VITALS: PULSE 66
[2021-09-22 03:31] VITALS: BP 133/77; PULSE 70; RESP 18; TEMP 35.6; O2SAT 95
[2021-09-22 07:04] VITALS: PULSE 62
[2021-09-22 08:00] VITALS: BP 149/96; PULSE 71; RESP 18; TEMP 35.9; O2SAT 96
[2021-09-22] MEDS: buPROPion-CR 150 MG TABCR PO (08:40)
[2021-09-22] MEDS: Lisinopril 5 MG TAB PO (08:40)
[2021-09-22] MEDS: Omeprazole 20 MG CAPCR PO (08:40)
[2021-09-22] MEDS: Acetylcysteine 600 MG CAP 1200 MG PO (08:48)
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
[2021-09-22 12:10] VITALS: BP 149/86; PULSE 84; RESP 17; TEMP 36.4; O2SAT 96
[2021-09-22 12:20] VITALS: PULSE 78
== END 2021-09-22 12:41 | disposition home or self-care (01) ==
LOC: ER 12:00 → MS 14:22
PROVIDERS: Admitting Provider Internal Medicine; Emergency Provider Student in an Organized Health Care Education/Training Program; PCP Physician Assistant Medical; Visit Provider Internal Medicine
DX: R07.89 Other chest pain (principal); R20.2 Paresthesia of skin; I10 Essential (primary) hypertension; I34.0 Nonrheumatic mitral (valve) insufficiency; E11.9 Type 2 diabetes mellitus without complications; F32.A Depression, unspecified; Z87.891 Personal history of nicotine dependence; Z79.84 Long term (current) use of oral hypoglycemic drugs
CPT/HCPCS: 36415; 74177; 80053; 87635; 93005; 96361; 96374; 99285; 83735; 84484; 85025; 93010; 93306; 99217; 99220; G0378; J2060

== ENCOUNTER 2021-09-22 12:22 | Outpatient (CLI) | payer BC, SELFPAY ==
--- NOTE | 2021-12-29 15:48 | W.CARDEVENT ---
Date of service: 12/29/21 Time of Service: 15:48 Cardiac Event Recorder Referring Provider:: Lynsey Fournier Indications:: Chest pain Cardiac Event Note: This cardiac event monitor recorded for few days and 2 hours Predominant rhythm was sinus with an average heart rate of 92. Maximum heart rate was 157, there was no atrial fibrillation The recording showed only sinus rhythm and sinus tachycardia Patient symptoms corresponded to sinus rhythm and sinus tachycardia, not to any dysrhythmia
== END 2021-09-22 12:23 | disposition home or self-care (01) ==
LOC: RT 12:27
PROVIDERS: PCP Physician Assistant Medical; Visit Provider Nurse Practitioner Family
DX: R07.9 Chest pain, unspecified (principal)
CPT/HCPCS: 93270

== ENCOUNTER 2021-09-24 15:56 | Emergency (ER) | payer BC, SELFPAY ==
[2021-09-24 16:07] VITALS: BP 132/94; PULSE 94; RESP 18; TEMP 36.7; O2SAT 96
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
[2021-09-24] MEDS: Cephalexin 500 MG CAP, 4 CAPS/BTL PO (16:39)
== END 2021-09-24 16:38 | disposition home or self-care (01) ==
PROVIDERS: Emergency Provider Emergency Medicine; PCP Physician Assistant Medical
DX: L03.114 Cellulitis of left upper limb (principal)
CPT/HCPCS: 99283

== ENCOUNTER 2021-10-08 07:24 | Emergency (ER) | payer SELFPAY ==
[2021-10-08 07:27] VITALS: BP 159/94; PULSE 100; RESP 18; TEMP 36.6; O2SAT 97
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
== END 2021-10-08 08:00 | disposition home or self-care (01) ==
PROVIDERS: Emergency Provider Student in an Organized Health Care Education/Training Program; PCP Physician Assistant Medical
DX: S00.03XA Contusion of scalp, initial encounter (principal); W22.8XXA Striking against or struck by other objects, initial encounter; Y99.0 Civilian activity done for income or pay
CPT/HCPCS: 99282

== ENCOUNTER 2021-12-24 01:15 | Emergency (ER) | payer BC, SELFPAY ==
[2021-12-24 01:18] VITALS: BP 153/85; PULSE 124; RESP 20; TEMP 38; O2SAT 95
--- OUTSIDE RECORDS SUMMARY | 2021-12-24 01:19 | XMS_ITS | Encounter Summary ---
:[address] [facility] Address [address] [place] [address] Care Team Providers Name Role Phone Unknown, Provider Primary Care Provider Encounter Details Date Type Department Care Team Description 09/18/2019 Lab Requisition [facility] Outr Resulting Lab, Pathology & Laboratory Provider [facility] [address] [place] [address] Social History Tobacco Use Types Packs/Day Years Used Date Never Assessed Sex Assigned at Date Recorded Not on file documented as of this encounter Plan of Treatment Not on filedocumented as of this encounter Procedures Procedure Name Priority Date/Time Associated Comments Diagnosis DO NOT ORDER Today 09/18/2019 13:13 Results for this STANDALONE - [facility] EDT procedure are in COVID TEST the results section. COVID-19 TESTING Routine 09/18/2019 13:13 Results for this EDT procedure are i n the results section. documented in this encounter Results DO NOT ORDER STANDALONE - [facility] COVID TEST (09/18/2019 13:13 EDT) COVID-19 rt-PCR NEGATIVE Negative [facility] Result Comment: LABORATORY 2019-novel Coronavirus (2019 -nCoV) not detected by the qRT-PCR assay. Consider testing for other respiratory viruses or re-collecting for 2019-nCoV testing. Note: Optimum timing for peak viral levels du ring infections caused by 20 -nCoV have not been determined. Collection of multiple specimens from the same patient may be necessary to detect the virus. Limitations Positive results are indicat macy of active infection with SARS-CoV-2 but do not rule out bacterial infection or co-infection with other viruses. The agent detected may not be the definite cause of diseas e. In addition, detection of viral RNA may not indicate the presence of infectious virus or that SARS-CoV-2 is the causative agent for clinical symptoms. Negative results do not prec lude SARS-CoV-2 infection and should not be used as the sole basis for patient management decisions. Negative results must be combined with clinical observations, patient his tory, and epidemiological in formation. False negative results may also occur if amplification inhibitors are present in the specimen or if inadequate numbers of organisms are present in the specimen. Op timum specimen types and rafael ing for peak viral levels during infections caused by SARS-CoV-2 have not been fully determined. Collection of multiple specimens (types and time points) from the same patient may be necessary to detect the virus. The test was validated for u se with upper respiratory specimens obtained via nasopharyngeal or oropharyngeal swabs in VTM, UTM, M4, M5, M6, saline, and MTM media. The performance of this test has not be en established for other spe cimens. Specimens collected using other FDA recommended Specimen Collection Materials listed in the FDA COVID-19 Diagnostic [employer] communication (July 31, 2019) are pr ocessed with the caveat that they were not all validated for use with this test and the result must be interpreted in this context. Furthermore, a false negative results may occur if a specimen is improperly collected, transported or handled. If the virus mutates in the RT-PCR target region, SARS-CoV-2 may not be detected or may be detected less predictably. Inhibitors or other types of interference may produce a false negative result. An interference study evaluating the effect of common cold medications was not performed. This test is not FDA-cleared but its performance characteristics were established by our CLIA-certified, CAP-accredited, high complexity laboratory in accordance with CLIA regulations, [employer] (CAP) guidel kaci (Jul 24, 2019), and FDA guidance (Jul 05, 2019). This test is only for use un fco the Food and Drug Administration's Emergency Use Authorization. Specimen Swab - Entire nasopharynx (body structur e) Performing Organization Address City/State/ZIP Code Phon e Number [facility] [place] COVID-19 TESTING (09/18/2019 13:13 EDT) COVID-19 rt-PCR NEGATIVE Negative [facility] Result Comment: LABORATORY 2019-novel Coronavirus (2019 -nCoV) not detected by the qRT-PCR assay. Consider testing for other respiratory viruses or re-collecting for 2019-nCoV testing. Note: Optimum timing for peak viral levels du ring infections caused by 20 -nCoV have not been determined. Collection of multiple specimens from the same patient may be necessary to detect the virus. Limitations Positive results are indicat macy of active infection with SARS-CoV-2 but do not rule out bacterial infection or co-infection with other viruses. The agent detected may not be the definite cause of diseas e. In addition, detection of viral RNA may not indicate the presence of infectious virus or that SARS-CoV-2 is the causative agent for clinical symptoms. Negative results do not prec lude SARS-CoV-2 infection and should not be used as the sole basis for patient management decisions. Negative results must be combined with clinical observations, patient his tory, and epidemiological in formation. False negative results may also occur if amplification inhibitors are present in the specimen or if inadequate numbers of organisms are present in the specimen. Op timum specimen types and rafael ing for peak viral levels during infections caused by SARS-CoV-2 have not been fully determined. Collection of multiple specimens (types and time points) from the same patient may be necessary to detect the virus. The test was validated for u se with upper respiratory specimens obtained via nasopharyngeal or oropharyngeal swabs in VTM, UTM, M4, M5, M6, saline, and MTM media. The performance of this test has not be en established for other spe cimens. Specimens collected using other FDA recommended Specimen Collection Materials listed in the FDA COVID-19 [employer] communication (July 31, 2019) are pr ocessed with the caveat that they were not all validated for use with this test and the result must be interpreted in this context. Furthermore, a false negative results may occur if a specimen is improperly collected, transported or handled. If the virus mutates in the RT-PCR target region, SARS-CoV-2 may not be detected or may be detected less predictably. Inhibitors or other types of interference may produce a false negative result. An interference study evaluating the effect of common cold medications was not performed. This test is not FDA-cleared but its performance characteristics were established by our CLIA-certified, CAP-accredited, high complexity laboratory in accordance with CLIA regulations, [employer] (CAP) guidel kaci (Jul 24, 2019), and FDA guidance (Jul 05, 2019). This test is only for use un fco the Food and Drug Administration's Emergency Use Authorization. Performing Lab [facility] LABORATORY SERVICES Specimen Swab - Entire nasopharynx (body structur e) Performing Organization Address City/State/ZIP Code Phon e Number [facility] [address] [place] [address] SERVICES [facility] [place], [place] documented in this encounter Visit Diagnoses Not on filedocumented in this encounter Care Teams Safety Lamp Keeper Relationship Specialty Start Date End Date Unknown, Provider, PCP - General 03/13/15 documented as of this encounter
--- OUTSIDE RECORDS SUMMARY | 2021-12-24 01:19 | XMS_ITS | Encounter Summary ---
:1975 Author Organization [facility] Address [address] [place] [address] Care Team Providers Name Role Phone Unknown, Provider Primary Care Provider Encounter Details Date Type Department Care Team Description 01/10/2019 Hospital Encounter [facility] - Unknown, Marva [facility] [phone] [address] [facility] ([facility] [place] [address] Social History Tobacco Use Types Packs/Day Years Used Date Never Assessed Sex Assigned at Date Recorded Not on file documented as of this encounter Discharge Disposition Disposition Code Departure Means Destination Auto Discharge Home documented in this encounter Plan of Treatment Not on filedocumented as of this encounter Visit Diagnoses Not on filedocumented in this encounter Care Teams Manager Environmental Health And Safety Relationship Specialty Start Date End Date Unknown, Provider, PCP - General 03/13/15 documented as of this encounter
--- OUTSIDE RECORDS SUMMARY | 2021-12-24 01:19 | XMS_ITS | Encounter Summary ---
:1975 Author Organization [facility] Address [address] [place] [address] Care Team Providers Name Role Phone Unknown, Provider Primary Care Provider Encounter Details Date Type Department Care Team Description 09/17/2020 Lab Requisition [facility] Early ontoxic single Pathology & P, TARAN thyroid nodule Laboratory Medicine [address] [place] [address] [phone] Social History Tobacco Use Types Packs/Day Years Used Date Never Assessed Sex Assigned at Date Recorded Not on file documented as of this encounter Plan of Treatment Not on filedocumented as of this encounter Procedures Procedure Name Priority Date/Time Associated Diagnosis Comme nts NON DISPOSAL PLANT OPERATOR/FNA Today 09/16/2020 8:25 EDT Nontoxic single Resul ts for this CYTOLOGY thyroid nodule procedure are in the results section. documented in this encounter Results NON DISPOSAL PLANT OPERATOR/FNA CYTOLOGY (09/16/2020 8:25 EDT) Pathologist Sig nature Final Diagnosis A. THYROID, LEFT LOBE, ULTRA SOUND GUIDED FINE NEEDLE ASPIRATION: [facility] - Benign follicular nodule. See comment. [facility] Diagnosis Comment The aspirate smears [facility] are cellular and [facility] show abundant SERVICES colloid and benign follicular cells consistent with a benign follicular nodule. Attestation There was significant reside nt/fellow involvement in the diagnostic evaluation of this case. [facility] Electronically signed By the signature below, the attending physician certifies that they have personally conducted a gross and/or microscopic [facility] by Steffi Birmingham, examination of the described specimens and rendered or confirmed the above diagnosis. SERVICES on 09/17/2020 at 1413 Rapid Diagnosis THYROID, LEFT, ULTRASOUND-GUIDED FINE NEEDLE ASP IRATION: [facility] Adequate; follicular cells and colloid present. [facility]. Donald Hale 09/16/2020 8:25 AM SERVICES Clinical History Nontoxic goiter, [facility] left thyroid [facility] nodule; clinical SERVICES diagnosis code: E04.2 Gross Description A. [facility] 3 fixed prepared slides, 3 D iff Quik prepared slides, and 1 tube of CytoLyt were received and processed by selective cellular enhancement technique. [facility] Resident/Fellow: Jae Irwin [facility] ELISA Ott MD [facility] Performing Lab [facility] SERVICES Scanned Images [facility] SERVICES Specimen Fine Needle Aspirate - Entire left lobe of thyroid gland (body structure) Performing Organization Address City/State/ZIP Code Phon e Number [facility] [address] [place] [address] SERVICES documented in this encounter Visit Diagnoses Diagnosis Nontoxic single thyroid nodule Nontoxic uninodular goiter documented in this encounter Care Teams Assembly Supervisor Relationship Specialty Start Date End Date Unknown, Provider, PCP - General 03/13/15 documented as of this encounter
--- OUTSIDE RECORDS SUMMARY | 2021-12-24 01:19 | XMS_ITS | Encounter Summary ---
:1975 Author Organization [facility] Address [address] [place] [address] Care Team Providers Name Role Phone Unknown, Provider Primary Care Provider Encounter Details Date Type Department Care Team Description 02/09/2020 Lab Requisition [facility] Outr Resulting Lab, Pathology & Laboratory Provider [facility] [address] [place] [address] Social History Tobacco Use Types Packs/Day Years Used Date Never Assessed Sex Assigned at Date Recorded Not on file documented as of this encounter Plan of Treatment Not on filedocumented as of this encounter Procedures Procedure Name Priority Date/Time Associated Diagnosis Comme nts COVID-19 TEST [facility] Today 02/08/2020 22:00 LAB PCR EDT COVID-19 TESTING Routine 02/08/2020 22:00 Results for this EDT procedure are i n the results section. documented in this encounter Results COVID-19 TEST [facility] LAB PCR (02/08/2020 22:00 EDT) Specimen Swab - Entire nasopharynx (body structur e) Performing Organization Address City/State/ZIP Code Phon e Number [facility] [address] [place] [address] SERVICES COVID-19 TESTING (02/08/2020 22:00 EDT) COVID-19 rt-PCR Negative Negative [facility] Result Comment: [facility] This test has not been FDA c leared or approved. This test has been authorized by FDA under an EUA for use by authorized laboratories. This test has been authorized only for detection of nucleic acid fro SERVICES m 2018-nCo, not for any oth er viruses or pathogens. This test is only authorized for the duration of the declaration that circumstances exist justifying the authorization of emergency use of in vitro d iagnostic tests for detectio n and/or diagnosis of 2019-nCoV under section 564(b)(1) of Act, 21 U.S.C ?? 360bbb-3(b) (1), unless the authorization is terminated or revoked sooner. Negative results do not prec lude 2019-nCoV infection and should not be used as the sole basis for treatment or other patient management decisions. Negative results must be combined with clinical observa tions, patient history, and epidemiological informatio n. Performed on the [employer] Fusion instrument Performing Lab [place] [facility] Lab [facility] SERVICES Specimen Swab Performing Organization Address City/State/ZIP Code Phon e Number [facility] [address] [place] [address] SERVICES documented in this encounter Visit Diagnoses Not on filedocumented in this encounter Care Teams Carbon Blocks Press Operator Relationship Specialty Start Date End Date Unknown, Provider, PCP - General 03/13/15 documented as of this encounter
--- OUTSIDE RECORDS SUMMARY | 2021-12-24 01:19 | XMS_ITS | Clinical Summary ---
:1975 Author Organization [facility] Address [address] [place] [address] Care Team Providers Name Role Phone Unknown, Provider Primary Care Provider Social History Tobacco Use Types Packs/Day Years Used Date Never Assessed Sex Assigned at Date Recorded Not on file Plan of Treatment Health Maintenance Due Date Last Done Comments COVID-19 Vaccine (1) 1985 Insurance Payer Benefit Plan / Subscriber ID Effective Dates Phone Addre ss Type Group [facility] [id number] 2018-Present [address] [facility] [place] [address] Care Teams Patient Accounting Representative Relationship Specialty Start Date End Date Unknown, Provider, PCP - General 03/13/15
--- OUTSIDE RECORDS SUMMARY | 2021-12-24 01:19 | XMS_ITS | Encounter Summary ---
:1975 Author Organization Address [address] [place] [address] Care Team Providers Name Role Phone Unknown, Provider Primary Care Provider Encounter Details Date Type Department Care Team Description 02/09/2020 Lab Requisition [facility] Outr Resulting Lab, Pathology & Laboratory Provider [facility] [address] [place] [address] Social History Tobacco Use Types Packs/Day Years Used Date Never Assessed Sex Assigned at Date Recorded Not on file documented as of this encounter Plan of Treatment Not on filedocumented as of this encounter Procedures Procedure Name Priority Date/Time Associated Diagnosis Comme nts LYME AB Routine 02/09/2020 0:00 EDT Results for this procedure are i n the results section . documented in this encounter Results LYME AB (02/09/2020 0:00 EDT) Pathologist Sig nature Lyme Ab NegativeComment: New Negative [facility] 3rd generation assay LABORATORY SERVICES in use 10/15/2019 Specimen Blood - Venous blood (substance) Performing Organization Address City/State/ZIP Code Phon e Number [facility] [address] [place] [address] SERVICES documented in this encounter Visit Diagnoses Not on filedocumented in this encounter Care Teams General Farm Hand Relationship Specialty Start Date End Date Unknown, Provider, PCP - General 03/13/15 documented as of this encounter
--- OUTSIDE RECORDS SUMMARY | 2021-12-24 01:19 | XMS_ITS | Encounter Summary ---
:[address] [facility] Address [address] [place] [address] Care Team Providers Name Role Phone Unknown, Provider Primary Care Provider Encounter Details Date Type Department Care Team Description 01/10/2019 Historical Results [facility] - Jarret Daniels, Only [facility] Radiology Resul ts PA-C [address] [place], [place] [address] [place] [address] [phone] Social History Tobacco Use Types Packs/Day Years Used Date Never Assessed Sex Assigned at Date Recorded Not on file documented as of this encounter Plan of Treatment Not on filedocumented as of this encounter Procedures Procedure Name Priority Date/Time Associated Diagnosis Comme nts XR SHOULDER RIGHT 2 01/10/2019 10:32 Resu lts for this OR MORE VIEWS EDT procedure are in the results section. documented in this encounter Results XR SHOULDER RIGHT 2 OR MORE VIEWS (01/10/2019 10:32 EDT) Specimen Narrative [facility] RADIOLOGY - 01/10/2019 10:35 EDT ? EXAM: RADIOLOGY EXPRESS CARE/EXP CARE ARMANDO EX. D/ (1023) ? CLINICAL INFORMATION: ? RIGHT ANTERIOR SHOULDER PAIN M25. 511 ? INDICATION: RIGHT ANTERIOR SHOULD ER PAIN M25.511 WC, R SHOULDER ? TECHNIQUE: 3 views right shoulder . ? COMPARISON: None. ? FINDINGS: The glenohumeral joint alignment is anatomic. There is no ? acute fracture or acute osseous a bnormality. The glenohumeral joint ? space is maintained and the subch ondral surfaces are smooth. The ? acromioclavicular joint alignment is anatomic. ? IMPRESSION: ? 1. No acute osseous abnormality d etected. ? REPORT SIGNED IN OTHER VENDOR SYSTEM 01/10/2019 ?Reported B y: Benny Anderson MD ? CC: ? Transcribed Date/Time: 01/10/2019 (1035) ? Split And Drum Room Supervisor: ? Printed Date/Time: 01/22/2019 (17 53) ? PAGE 1 ? Mariela d Report ? Procedure Note Benny Anderson E - 03/11/2019 EXAM: RADIOLOGY EXPRESS CARE/EXP CARE S HO EX. D/ (1023) CLINICAL INFORMATION: RIGHT ANTERIOR SHOULDER PAIN M25.511 INDICATION: RIGHT ANTERIOR SHOULDER RD N M25.511 WC, R SHOULDER TECHNIQUE: 3 views right shoulder. COMPARISON: None. FINDINGS: The glenohumeral joint alignm ent is anatomic. There is no acute fracture or acute osseous abnorma lity. The glenohumeral joint space is maintained and the subchondral surfaces are smooth. The acromioclavicular joint alignment is an atomic. IMPRESSION: 1. No acute osseous abnormality detecte d. REPORT SIGNED IN OTHER VENDOR SYSTEM 01/10/2019 Reported By: Benny Anderson MD CC: Transcribed Date/Time: 01/10/2019 (1035 ) Split And Drum Room Supervisor: Printed Date/Time: 01/22/2019 (6280) PAGE 1 Signed Report Performing Organization Address City/State/ZIP Code Phon e Number [facility] RADIOLOGY documented in this encounter Visit Diagnoses Not on filedocumented in this encounter Care Teams Armature And Rotor Winder Relationship Specialty Start Date End Date Unknown, Provider, PCP - General 03/13/15 documented as of this encounter
--- OUTSIDE RECORDS SUMMARY | 2021-12-24 01:19 | XMS_ITS | Encounter Summary ---
:1975 Author Organization [facility] Address [address] [place] [address] Care Team Providers Name Role Phone Unknown, Provider Primary Care Provider Encounter Details Date Type Department Care Team Description 07/29/[address] [facility] Simeon for other Pathology & MD Candelario general examination Laboratory Medicine - [address] [place], [place] [address] [facility] [id number] [place], [place] [id number] Social History Tobacco Use Types Packs/Day Years Used Date Never Assessed Sex Assigned at Date Recorded Not on file documented as of this encounter Plan of Treatment Not on filedocumented as of this encounter Procedures Procedure Name Priority Date/Time Associated Diagnosis Comme nts COVID-19 TESTING Today 07/29/2019 12:11 Encounter for other Results for this EDT general examination procedur e are in the results section. documented in this encounter Results COVID-19 TEST STATE LAB (07/29/2019 12:11 EDT) COVID-19 Result Not Not Detected [facility] DetectedComment: OF HEALTH Assayed by [place] [facility], [place], [place] Specimen Swab - Entire nasopharynx (body structur e) Narrative This result has an attachment that is no t available. Performing Organization Address City/State/ZIP Code Phon e Number [facility] [address] [place], [place] [address] LABORATORY documented in this encounter Visit Diagnoses Diagnosis Encounter for other general examination documented in this encounter Care Teams Academic Advisement Director Relationship Specialty Start Date End Date Unknown, ProviderMD PCP - General 03/13/15 documented as of this encounter
--- OUTSIDE RECORDS SUMMARY | 2021-12-24 01:20 | XMS_ITS | Encounter Summary ---
:1975 Author Organization [facility] Address [address] [place] [address] Care Team Providers Name Role Phone Unknown, Provider Primary Care Provider Encounter Details Date Type Department Care Team Description 10/30/2018 Historical Results Only [facility] - Unknown, [facility] [place] us Provider, MD [address] [phone] [place] [address] (Work) [phone] Social History Tobacco Use Types Packs/Day Years Used Date Never Assessed Sex Assigned at Date Recorded Not on file documented as of this encounter Plan of Treatment Not on filedocumented as of this encounter Procedures Procedure Name Priority Date/Time Associated Comments Diagnosis QUANTIFERON TB GOLD Routine 10/30/2018 11:14 Resu lts for this PLUS EDT procedure are i n the results section. MEASLES IGG AB Routine 10/30/2018 11:14 Results f or this EDT procedure are i n the results section. RUBELLA IGG ANTIBODY Routine 10/30/2018 11:14 Res ults for this EDT procedure are i n the results section. HEPATITIS B SURFACE Routine 10/30/2018 11:14 Resu lts for this ANTIBODY EDT procedure are i n the results section. VARICELLA IGG Routine 10/30/2018 11:14 Results fo r this ANTIBODY EDT procedure are i n the results section. MUMPS ANTIBODY IGG Routine 10/30/2018 11:14 Resul ts for this EDT procedure are i n the results section. documented in this encounter Results RUBELLA IGG ANTIBODY (10/30/2018 11:14 EDT) RUBELLA IGG Positive [facility] ANTIBODY - [facility] Comment: [facility] Expected value: Positive The presence of Rubella IgG suggest immunity against r ubella Specimen Narrative [facility] - 019 13:31 EDT Does PT Have a Latex Allergy? NO Performing Organization Address [facility] Code [facility] e Number [facility] [address] LAB HEPATITIS B SURFACE ANTIBODY (10/30/2018 11:14 EDT) Hep B Surface Ab, 0 [facility] Qualitative Comment: [facility] CENTER LAB ?Interpretative Guidelines < 5.00 mIU/mL = ?Negative Clinical Interpretation of Immune Status: Patient is considered to be not immune to infection with HBV. The results of this assay can be falsely lowered due to the consumption of Biotin. Specimen Narrative [facility] - 13:49 EDT Does PT Have a Latex Allergy? NO Performing Organization Address [facility] e Number [facility] [address] [place] [address] LAB VARICELLA IGG ANTIBODY (10/30/2018 11:14 EDT) Varicella IgG Ab PositiveComment: Negative [facility] Presumed immune to CENTER LAB Varicella infection. Specimen Narrative [facility] - 019 22:43 EDT Does PT Have a Latex Allergy? NO Performing Organization Address [facility] Code Phon e Number [facility] [address] LAB MEASLES IGG AB (10/30/2018 11:14 EDT) RUBEOLA IGG PositiveComment: Negative [facility] ANTIBODY - [facility] Presumed immune to MED CENTER LAB Measles infection. Specimen Narrative [facility] - 019 22:43 EDT Does PT Have a Latex Allergy? NO Performing Organization Address [facility] Code Phon e [facility] LAB [address] LAB MUMPS ANTIBODY IGG (10/30/2018 11:14 EDT) Pathologist Sig nature Mumps Ab, IgG, S PositiveComment: Negative [facility] Presumed immune to CENTER LAB Mumps infection. Specimen Narrative [facility] - 019 22:43 EDT Does PT Have a Latex Allergy? NO Performing Organization Address [facility]/ZIP Code Phon e Number [facility] [address] [place], [place] [id number] [place] [address] LAB QUANTIFERON TB GOLD PLUS (10/30/2018 11:14 EDT) Quantiferon Negative NEGAT [facility] Interpretation Comment: MED CENTER LAB Reference Range: Negative No interferon-gamma response to M. tuberculosis antig ens was detected. Infection with M. tuberculosis is unlikely. A single negative result does not exclude infection with M. tu berculosis. In patients at high risk for M. tuberculosis infection , a second test should be considered in accordance with the 2017 ATS/ IDSA/CDC Clinical Practive Guidelines for Diagnosis of Tubercu losis in Adults and Children [Cira SOMMERS et. al. Clin. Infect. Dis. 2017:64(2):111-115]. Results were obtained with the Qiagen QuantiFERON-TB Gold Plus MESSI. TB1 Ag minus Nil 0.00 () IU/mL [facility] TB2 Ag minus Nil 0.00 () IU/mL [facility] Comment: [facility] LAB Test performed or referred by The [address] [address] Specimen Narrative [facility] - 019 14:35 EDT Does PT Have a Latex Allergy? NO fast. ??Lot [id number].--CLS 10/30/18 11:2 8am Performing Organization Address City/[facility] Phon e Number [facility] [address] [place] [address] [facility] documented in this encounter Visit Diagnoses Not on filedocumented in this encounter Care Teams Museum Security Chief Relationship Specialty Start Date End Date Unknown, Provider, PCP - General 03/13/15 documented as of this encounter
--- OUTSIDE RECORDS SUMMARY | 2021-12-24 01:20 | XMS_ITS | Encounter Summary ---
:1975 Author Organization [facility] Address [address] [place] [address] Care Team Providers Name Role Phone Unavailable Primary Care Provider Unavailable Encounter Details Date Type Department Care Team Description 05/10/2006 Results Only [facility] - Yamilex Orellana MD Maple conversion [address] [place] [address] [place] [address] Social History Tobacco Use Types Packs/Day Years Used Date Never Assessed Sex Assigned at Date Recorded Not on file documented as of this encounter Plan of Treatment Not on filedocumented as of this encounter Procedures Procedure Name Priority Date/Time Associated Diagnosis Comme nts SURGICAL PATHOLOGY Routine 05/10/2006 0:00 EST Re sults for this procedure are i n the results section. documented in this encounter Results SURGICAL PATHOLOGY (05/10/2006 0:00 EST) Pathology Report: SURGICAL PATHOLOGY REPORT [facility] Reports generated via electronic interface contain caroline ginal data; LAB however they are lacking the format of the original re port. Caution should be taken when reading/interpreting unfo rmatted reports. Name: ? SUYAPA STONE ? Accession #: ? [id number] ? : ? 1975 (Age: 30) ??F ? Collect Date: ? 05/10/2006 ? Location: ? [facility] ? Receive Date: ? 007 ? Provider: SURI ORELLANA MD Copy to: CHARISSE MIRANDA MD ? Final Pathologic Diagnosis: ? Uterus, simple hysterectomy: 1. ?Cervix: ? - Endocervical polyp. - Squamous metaplasia. ? 2. ?? Endometrium: ?- Benign proliferative endometrium with no sp ecific histopathologic diagnosis. 3. ?? Myometrium: ?- No specific histopathologic diagnosis. 4. ?? Serosa: ? - No specific histopathologic diagnosi s. Document reviewed and electronically signed by: Mil Avila MD Report ??Date: 05/14/2006 18:10 By the signature above, the attending physician certif ies that he/she has personally conducted a gross and/or microscopic examin ation of the described specimens and rendered or confirmed the above diagnosi s. Specimen(s) Received: ? Uterus + cervix Clinical History: ? Menorrhagia; severe dysmenorrhea Gross Description: ? Received in formalin labelled Stone and uterus, cervix is a product of a simple hysterectomy which weighs 137 grams and m easures 9.2 cm from fundus to cervix, 5.3 cm from cornu to cornu, and 3.8 cm anterio r to posterior. ??The serosa is elizondo-pink, smooth a nd glistening. ??The ectocervix is brody-white, smooth to wrinkled, with a 1.2 cm slit-like patent os. ??The endocervical canal is grossly unremarkable. ??The endometrium is elizondo-pink and glistening, averaging 0.2 cm in thickness. ??The myometrium is elizondo-pink, ranges from 2.0 to 2.5 cm in thickness with no definitive nodules identified. ??The adnexa is not grossly identified. ??Dispatcher Chief Coal Slurry sections are submitted as follows: BLOCK MARINA A1 ?Anterior cervix A2 ?Posterior cervix A3, A4 ?Anterior endomyometrium A5, A6 ?Posterior endomyometrium A7 ?Serosa ??posterior lower uterine segm ent in fundic region (Heather Ramon)/[facility] End of Report Specimen Performing Organization Address City/State/ZIP Code Phon e Number [facility] [address] [place] [address] SERVICES [facility] [address] [place] [address] documented in this encounter Visit Diagnoses Not on filedocumented in this encounter
--- OUTSIDE RECORDS SUMMARY | 2021-12-24 01:20 | XMS_ITS | Encounter Summary ---
:1975 Author Organization [facility] Address [address] [place] [address] Care Team Providers Name Role Phone Unavailable Primary Care Provider Unavailable Encounter Details Date Type Department Care Team Description 04/19/[address] [facility] - Mary Lou Stapleton MD conversion [address] [place] [address] [place], [place] [id number] [phone] Social History Tobacco Use Types Packs/Day Years Used Date Never Assessed Sex Assigned at Date Recorded Not on file documented as of this encounter Plan of Treatment Not on filedocumented as of this encounter Procedures Procedure Name Priority Date/Time Associated Diagnosis Comme nts CYTOPATHOLOGY Routine 04/19/2004 0:00 EST Results for this procedure are i n the results section . documented in this encounter Results CYTOPATHOLOGY (04/19/2004 0:00 EST) Pathology Report: CYTOPATHOLOGY REPORT [facility] Reports generated via electronic interface contain caroline ginal data; however they are lacking the format of the original re port. Caution should be taken when reading/interpreting unfo rmatted reports. Name: ? SUYAPA STONE ? Accession #: ? [id number] : ? 1975 (Age: 28) ??F ?Collect Date: ? 04/06 Location: ? [facility] ? Receive Date : ? 04/21/2004 Provider: ?MARY LOU BRYAN MD Copy to: ? Specimen/Source: ?ThinPrep Pap Test, Endocer vix Last Menstrual Period: ? 04/01/04 ? SPECIMEN ADEQUACY ? Satisfactory for Evaluation - transformation zone component present GENERAL CATEGORIZATION ? Negative for Intraepithelial Lesion or Malignan cy ? Document reviewed and electronically signed by: ? JOHN Cr(ASCP) ? Report Date: ??04/26/2004 09:19 End of Report Specimen Performing Organization Address City/State/ZIP Code Phon e Number [facility] [address] [place] [address] SERVICES [facility] [address] [place] [address] documented in this encounter Visit Diagnoses Not on filedocumented in this encounter
--- OUTSIDE RECORDS SUMMARY | 2021-12-24 01:20 | XMS_ITS | Encounter Summary ---
:1975 Author Organization [facility] Address [address] [place] [address] Care Team Providers Name Role Phone Unavailable Primary Care Provider Unavailable Encounter Details Date Type Department Care Team Description 01/26/2000 Results Only [facility] - Tiffani Sanders MD conversion [address] [place] [phone] (Wo rk) Social History Tobacco Use Types Packs/Day Years Used Date Never Assessed Sex Assigned at Date Recorded Not on file documented as of this encounter Plan of Treatment Not on filedocumented as of this encounter Procedures Procedure Name Priority Date/Time Associated Diagnosis Comme nts CYTOPATHOLOGY Routine 01/26/2000 0:00 EDT Results for this procedure are i n the results section . documented in this encounter Results CYTOPATHOLOGY (01/26/2000 0:00 EDT) Pathology Report: CYTOPATHOLOGY REPORT [facility] Reports generated via electronic interface contain caroline ginal data; however they are lacking the format of the original re port. Caution should be taken when reading/interpreting unfo rmatted reports. Name: ? SUYAPA STONE ? Accession #: ? [id number] : ? 1975 (Age: 24) ??F ?Collect Date: ? 01/06 Location: ? [facility] ? Receive Date : ? 01/30/2000 Provider: ?TIFFANI BURR MD Copy to: ? Specimen/Source: ?Conventional Pap Test, Cer vix/Endocervix Last Menstrual Period: ? Menstrual/ Status: ? Post ? SPECIMEN ADEQUACY ? Satisfactory for evaluation. GENERAL CATEGORIZATION ? Within Normal Limits ? Document reviewed and electronically signed by: ? Courtney George, ??SCT(ASCP) ? Report Date: ??02/01/2000 08:53 End of Report Specimen Performing Organization Address City/State/ZIP Code Phon e Number [facility] [address] [place] [address] SERVICES [facility] [address] [place] [address] documented in this encounter Visit Diagnoses Not on filedocumented in this encounter
--- OUTSIDE RECORDS SUMMARY | 2021-12-24 01:20 | XMS_ITS | Encounter Summary ---
:1975 Author Organization [facility] Address [address] [place] [address] Care Team Providers Name Role Phone Unknown, Provider Primary Care Provider Encounter Details Date Type Department Care Team Description 08/30/2015 Results Only [facility]- Tanisha Burris, [address] [place] [address] [place] [address] (Wo rk) Social History Tobacco Use Types Packs/Day Years Used Date Never Assessed Sex Assigned at Date Recorded Not on file documented as of this encounter Plan of Treatment Not on filedocumented as of this encounter Procedures Procedure Name Priority Date/Time Associated Diagnosis Comme [facility] SURGICAL PATHOLOGY Routine 08/30/2015 20:25 Resul ts for this EDT procedure are i n the results section. documented in this encounter Results SURGICAL PATHOLOGY (08/30/2015 20:25 EDT) Pathology Report: SURGICAL PATHOLOGY REPORT [facility] Reports generated via electronic interface contain caroline ginal data; LABORATORY however they are lacking the format of the original re port. SERVICES Caution should be taken when reading/interpreting unfo rmatted reports. Name: ? SUYAPA STONE ? Accession #: ? [id number] ? : ? 1975 (Age: 40 ) ??F ? Collect Date: ? 08/30/2015 ? Location: ? [facility] ? Receive Date: ? 08/30/19 16 ? Provider: TANISHA GARCES MD Copy to: RAYMUNDO MORLEY PA-C ? Final Pathologic Diagnosis: COLON, SIGMOID, POLYP, BIOPSY: - ??Fragment of hyperplastic polyp. Document reviewed and electronically signed by: JOSE A LIPSCOMB MD Report ??Date: 09/01/2015 17:36 By the signature above, the attending physician certif ies that he/she has personally conducted a gross and/or microscopic examin ation of the described specimens and rendered or confirmed the above diagnosi s. Specimen(s) Received: Sigmoid polyp Clinical History: Abdominal pain, rectal bleeding, constipation Gross Description: ? Received in formalin labelled with proper patient identification (initials B, C) and sigmoid polyp is a 0.3 x 0.2 x 0.1 cm elizondo irregular tissue. Entirely submitted in 1. Michelle Chen 08/31/2015 8:54 AM End of Report Specimen Performing Organization Address City/State/ZIP Code Phon e Number [facility] [address] [place] [address] SERVICES documented in this encounter Visit Diagnoses Not on filedocumented in this encounter Care Teams Supervisor Inventory Merchandising Relationship Specialty Start Date End Date Unknown, Provider, PCP - General 03/13/15 documented as of this encounter
--- OUTSIDE RECORDS SUMMARY | 2021-12-24 01:20 | XMS_ITS | Encounter Summary ---
:1975 Author Organization [facility] Address [address] [place] [address] Care Team Providers Name Role Phone Unknown, Provider Primary Care Provider Encounter Details Date Type Department Care Team Description 08/30/2015 Hospital Encounter [facility]- Neena Unknown, Provider, [facility] [address] [facility] [phone] [place] [address] (Work) [phone] Social History Tobacco Use Types Packs/Day Years Used Date Never Assessed Sex Assigned at Date Recorded Not on file documented as of this encounter Discharge Disposition Disposition Code Departure Means Destination Home or Self [place] documented in this encounter Plan of Treatment Not on filedocumented as of this encounter Visit Diagnoses Not on filedocumented in this encounter Care Teams Specifications Checker Relationship Specialty Start Date End Date Unknown, Provider, PCP - General 03/13/15 documented as of this encounter
--- OUTSIDE RECORDS SUMMARY | 2021-12-24 01:20 | XMS_ITS | Encounter Summary ---
:1975 Author Organization [facility] Address [address] [place] [address] Care Team Providers Name Role Phone Unavailable Primary Care Provider Unavailable Encounter Details Date Type Department Care Team Description 06/14/1999 Results Only [facility] - Tiffani Sanders MD conversion [address] [place] [phone] (Wo rk) Social History Tobacco Use Types Packs/Day Years Used Date Never Assessed Sex Assigned at Date Recorded Not on file documented as of this encounter Plan of Treatment Not on filedocumented as of this encounter Procedures Procedure Name Priority Date/Time Associated Diagnosis Comme [facility] CYTOPATHOLOGY Routine 06/14/1999 14:33 EST Result s for this procedure are i n the results section . documented in this encounter Results CYTOPATHOLOGY (06/14/1999 14:33 EST) Pathology Report: CYTOPATHOLOGY REPORT [facility] Reports generated via electronic interface contain caroline ginal data; however they are lacking the format of the original re port. Caution should be taken when reading/interpreting unfo rmatted reports. Name: ? SUYAPA STONE ? Accession #: ? [id number] : ? 1975 (Age: 23) ??F ?Collect Date: ? 12/1999 Location: ?Receive Date: ? 06/14/1999 Provider: ?TIFFANI BURR MD Copy to: ?TIFFANI BURR MD ? Specimen/Source: ?Pap Smear (One Slide) Last Menstrual Period: ? GYNECOLOGIC ??CYTOPATHOLOG Y ??REPORT Name: SUYAPA SMITH ? [facility] : 1975 ?? 23Y F ?Client ID: [id number] SS#: [id number] ? Ac cession #: [id number] Clinician: TIFFANI BURR MD ?? Location: [facility] ??Copy to: ?? Specimen: ?Pap Smear (One Slide) ? Source: Cervix/Endocervix ?Collected: 06/10/99 ? Received: 06/14/1999 ?LMP: 03/10/89 ? Hormone Therapy: No ? : Yes ?Radiation Therapy: No ?? Post : No ?Chemotherapy: No ?IUD: No ? Prev Abnormal Pap: No ?? Clinical Hx: ?(Blank guerra indicate information not provided on requisition) SPECIMEN ADEQUACY: ? Satisfactory But Limited By ? Absence Of A Transformation Zone Component ?? GENERAL CATEGORIZATION: ? WITHIN NORMAL LIMITS ? Reviewed And Electronically Signed By: ? Ruben Esparza, CT(ASCP) ? Report Date : ?? 06/16/1999 [employer] Archived Tests - Final Diagnosis Text Field: Clinical History : ? Document reviewed and electronically signed by: ? Conversion ? Report Date: ??06/16/1999 00:00 End of Report Specimen Performing Organization Address City/State/ZIP Code Phon e Number [facility] [address] [place] [address] SERVICES [facility] [address] [place] [address] documented in this encounter Visit Diagnoses Not on filedocumented in this encounter
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
[2021-12-24] MEDS: Ondansetron O.D.T. 4 MG TABEF PO (01:35)
[2021-12-24] MEDS: Ketorolac 30 MG/ML VIAL IM (01:35)
[2021-12-24 02:21] LABS: Influenza A PCR Negative (Negative); Influenza B PCR Negative (Negative); RSV PCR Negative (Negative)
[2021-12-24 02:22] LABS: Source Nasopharynx
[2021-12-24 02:25] LABS: COVID-19 PCR Positive (Negative)
[2021-12-24] MEDS: Ondansetron O.D.T. 4 MG TABEF, 3 TABS/BTL PO (02:36)
[2021-12-24 02:45] VITALS: PULSE 108
== END 2021-12-24 03:04 | disposition home or self-care (01) ==
PROVIDERS: Emergency Provider Student in an Organized Health Care Education/Training Program; PCP Physician Assistant Medical
DX: U07.1 COVID-19 (principal); R00.0 Tachycardia, unspecified; I10 Essential (primary) hypertension; E11.9 Type 2 diabetes mellitus without complications; Z79.84 Long term (current) use of oral hypoglycemic drugs
CPT/HCPCS: 87637; 96372; 99284; J1885

== ENCOUNTER 2022-02-17 07:48 | Emergency (ER) | payer OTHER, SELFPAY ==
[2022-02-17 07:56] VITALS: BP 156/86; PULSE 100; RESP 18; TEMP 36.9; O2SAT 97
--- OUTSIDE RECORDS SUMMARY | 2022-02-17 07:56 | XMS_ITS | Encounter Summary ---
:1975 Author Organization [facility] Address [address] [place] [address] Care Team Providers Name Role Phone Unknown, Provider Primary Care Provider Encounter Details Date Type Department Care Team Description 02/09/2020 Lab Requisition [facility] Outr Resulting Lab, Pathology & Laboratory Provider [facility] [address] [place] [address] Social History Tobacco Use Types Packs/Day Years [...] Sig nature Lyme Ab NegativeComment: New Negative [facility] 3rd generation assay LABORATORY SERVICES in use 10/15/2019 Specimen Blood - Venous blood (substance) Performing Organization Address City/State/ZIP Code Phon e Number [facility] [address] [place] [address] SERVICES documented in this encounter Visit Diagnoses Not on filedocumented in this encounter Care Teams Heat Pump Installer Relationship Specialty Start Date End Date Unknown, Provider, PCP - General 03/13/15 documented as of this encounter
--- OUTSIDE RECORDS SUMMARY | 2022-02-17 07:56 | XMS_ITS | Encounter Summary ---
:1975 Author Organization [facility] Address [address] [place] [address] Care Team Providers Name Role Phone Unavailable Primary Care Provider Unavailable Encounter Details Date Type Department Care Team Description 05/10/2006 Results Only [facility] - Yamilex Orellana MD [place] conversion [address] [place] [address] [place] [address] Social History Tobacco Use Types Packs/Day Years [...] identified. ??The adnexa is not grossly identified. ??Energy And Sustainability Manager sections are submitted as follows: BLOCK MARINA A1 ?Anterior cervix A2 ?Posterior cervix A3, A4 ?Anterior endomyometrium A5, A6 ?Posterior endomyometrium A7 ?Serosa ??posterior lower uterine segm ent in fundic region (Heather Ramon)/[facility] End of Report Specimen Performing Organization Address City/State/ZIP Code Phon e Number [facility] [address] [place] [address] SERVICES [facility] [address] [place] [address] documented in this encounter Visit Diagnoses Not on filedocumented in this encounter
--- OUTSIDE RECORDS SUMMARY | 2022-02-17 07:56 | XMS_ITS | Encounter Summary ---
:1975 Author Organization [facility] Address [address] [place] [address] Care Team Providers Name Role Phone Unknown, Provider Primary Care Provider Encounter Details Date Type Department Care Team Description 01/10/2019 Hospital Encounter [facility] - Unknown, Marva eagle [facility] [phone] [address] [facility] (Work) [place] [address] Social History Tobacco Use Types Packs/Day Years Used Date Never Assessed Sex Assigned at Date Recorded Not on file documented as of this encounter Discharge Disposition Disposition Code Departure Means Destination Auto Discharge Home documented in this encounter Plan of Treatment Not on filedocumented as of this encounter Visit Diagnoses Not on filedocumented in this encounter Care Teams Software Consultant Relationship Specialty Start Date End Date Unknown, Provider, PCP - General 03/13/15 documented as of this encounter
--- OUTSIDE RECORDS SUMMARY | 2022-02-17 07:56 | XMS_ITS | Encounter Summary ---
:1975 Author Organization [facility] Address [address] [place] [address] Care Team Providers Name Role Phone Unknown, Provider Primary Care Provider Encounter Details Date Type Department Care Team Description 01/10/2019 Historical Results [facility] - Jarret Daniels, Only [facility] Radiology Resul ts PA-C [address] [place], [place] [address] [place] [address] [phone] Social History Tobacco Use Types Packs/Day [...] MORE VIEWS (01/10/2019 10:32 EDT) Specimen Narrative [facility] - 01/10/2019 10:35 EDT ? EXAM: [...] CC: ? Transcribed Date/Time: 01/10/2019 (1035) ? Telesales Manager: ? Printed Date/Time: 01/22/2019 (17 53) ? [...] MD CC: Transcribed Date/Time: 01/10/2019 (1035 ) Telesales Manager: Printed Date/Time: 01/22/2019 (3825) PAGE 1 Signed Report Performing Organization Address City/State/ZIP Code Phon e Number [facility] documented in this encounter Visit Diagnoses Not on filedocumented in this encounter Care Teams Crane Crew Supervisor Relationship Specialty Start Date End Date Unknown, Provider, PCP - General 03/13/15 documented as of this encounter
--- OUTSIDE RECORDS SUMMARY | 2022-02-17 07:56 | XMS_ITS | Encounter Summary ---
:1975 Author Organization [facility] Address [address] [place] [address] Care Team Providers Name Role Phone Unknown, Provider Primary Care Provider Encounter Details Date Type Department Care Team Description 02/09/2020 Lab Requisition [facility] Outr Resulting Lab, Pathology & Laboratory Provider [facility] [address] [place] [address] Social History Tobacco Use Types Packs/Day Years Used Date Never Assessed Sex Assigned at Date Recorded Not on file documented as of this encounter Plan of Treatment Not on filedocumented as of this encounter Procedures Procedure Name Priority Date/Time Associated Diagnosis Comme nts COVID-19 TEST [facility] Today 02/08/2020 22:00 LAB PCR EDT COVID-19 TESTING Routine 02/08/2020 22:00 Results for this EDT procedure are i n the results section. documented in this encounter Results COVID-19 TEST [facility] LAB PCR (02/08/2020 22:00 EDT) Specimen Swab - Entire nasopharynx (body structur e) Performing Organization Address City/State/ZIP Code Phon e Number [facility] [address] [place] [address] SERVICES COVID-19 TESTING (02/08/2020 22:00 EDT) COVID-19 rt-PCR Negative Negative [facility] MEDICAL Result Comment: [facility] This test [...] and epidemiological informatio n. Performed on the [employer] Fusion instrument Performing Lab [facility] Lab [facility] SERVICES Specimen Swab Performing Organization Address City/State/ZIP Code Phon e Number [facility] [address] [place] [address] SERVICES documented in this encounter Visit Diagnoses Not on filedocumented in this encounter Care Teams Assistant Pressman Relationship Specialty Start Date End Date Unknown, Provider, PCP - General 03/13/15 documented as of this encounter
--- OUTSIDE RECORDS SUMMARY | 2022-02-17 07:56 | XMS_ITS | Encounter Summary ---
:1975 Author Organization [facility] Address [address] [place] [address] Care Team Providers Name Role Phone Unknown, Provider Primary Care Provider Encounter Details Date Type Department Care Team Description 10/30/[address] [facility] - Unknown, [facility] Lab - Main [place] Provider, MD [address] [phone] [place] [address] (Work) [phone] Social History Tobacco Use Types Packs/Day Years [...] ANTIBODY (10/30/2018 11:14 EDT) RUBELLA IGG Positive [facility] ANTIBODY - [facility] Comment: MED CENTER LAB Expected value: Positive The presence of Rubella IgG suggest immunity against r ubella Specimen Narrative [facility] LAB - 019 13:31 EDT Does PT Have a Latex Allergy? NO Performing Organization Address [facility] Code [facility] e Number [facility] LAB [address] LAB HEPATITIS B SURFACE ANTIBODY (10/30/2018 11:14 EDT) Hep B Surface Ab, 0 [facility] Qualitative Comment: [facility] ?Interpretative Guidelines < 5.00 mIU/mL = ?Negative Clinical Interpretation of Immune Status: Patient is considered to be not immune to infection with HBV. The results of this assay can be falsely lowered due to the consumption of Biotin. Specimen Narrative [facility] LAB - 13:49 EDT Does PT Have a Latex Allergy? NO Performing Organization Address [facility] e Number [facility] LAB [address] [place] [address] LAB VARICELLA IGG ANTIBODY (10/30/2018 11:14 EDT) Varicella IgG Ab PositiveComment: Negative [facility] Presumed immune to CENTER LAB Varicella infection. Specimen Narrative [facility] LAB - 019 22:43 EDT Does PT Have a Latex Allergy? NO Performing Organization Address [facility] Code Phon e Number [facility] [address] LAB MEASLES IGG AB (10/30/2018 11:14 EDT) RUBEOLA IGG PositiveComment: Negative [facility] ANTIBODY - [facility] Presumed immune to MED CENTER LAB Measles infection. Specimen Narrative [facility] LAB - 019 22:43 EDT Does PT Have a Latex Allergy? NO Performing Organization Address [facility] Code Phon e [facility] LAB [address] LAB MUMPS ANTIBODY IGG (10/30/2018 11:14 EDT) Pathologist Sig nature Mumps Ab, IgG, S PositiveComment: Negative [facility] Presumed immune to CENTER LAB Mumps infection. Specimen Narrative [facility] - 019 22:43 EDT Does PT Have a Latex Allergy? NO Performing Organization Address [facility]/ZIP Code Phon e Number [facility] [address] [place], [place] [address] [place] [address] LAB QUANTIFERON TB GOLD PLUS (10/30/2018 11:14 EDT) Quantiferon Negative NEGAT [facility] Interpretation Comment: MED CENTER LAB [...] TB1 Ag minus Nil 0.00 () IU/mL [facility] LAB TB2 Ag minus Nil 0.00 () IU/mL [facility] Comment: [facility] LAB Test performed or referred by The [address] [address] Specimen Narrative [facility] LAB - 019 14:35 EDT Does PT Have a Latex Allergy? NO fast. ??Lot [id number].--CLS 10/30/18 11:2 8am Performing Organization Address City/[facility] Phon e Number [facility] [address] [place] [address] [facility] documented in this encounter Visit Diagnoses Not on filedocumented in this encounter Care Teams Building Associate Relationship Specialty Start Date End Date Unknown, Provider, PCP - General 03/13/15 documented as of this encounter
--- OUTSIDE RECORDS SUMMARY | 2022-02-17 07:56 | XMS_ITS | Encounter Summary ---
:1975 Author Organization [facility] Address [address] [place] [address] Care Team Providers Name Role Phone Unknown, Provider Primary Care Provider Encounter Details Date Type Department Care Team Description 08/30/2015 Hospital Encounter [facility] Unknown, Provider, [facility] [address] [facility] [phone] [place] [address] (Work) [phone] Social History Tobacco Use Types Packs/Day Years Used Date Never Assessed Sex Assigned at Date Recorded Not on file documented as of this encounter Discharge Disposition Disposition Code Departure Means Destination Home or Self [facility] documented in this encounter Plan of Treatment Not on filedocumented as of this encounter Visit Diagnoses Not on filedocumented in this encounter Care Teams Pastoral Counselor Relationship Specialty Start Date End Date Unknown, Provider, PCP - General 03/13/15 documented as of this encounter
--- OUTSIDE RECORDS SUMMARY | 2022-02-17 07:56 | XMS_ITS | Encounter Summary ---
:1975 Author Organization [facility] Address [address] [place] [address] Care Team Providers Name Role Phone Unknown, Provider Primary Care Provider Encounter Details Date Type Department Care Team Description 08/30/[address] [facility] Tanisha Burris, [address] [place] [address] [place] [address] (Wo rk) Social History Tobacco Use Types Packs/Day Years Used Date Never Assessed Sex Assigned at Date Recorded Not on file documented as of this encounter Plan of Treatment Not on filedocumented as of this encounter Procedures Procedure Name Priority Date/Time Associated Diagnosis Comme [facility] SURGICAL PATHOLOGY Routine 08/30/2015 20:25 Resul ts for this EDT procedure are i n the results section. documented in this encounter Results SURGICAL PATHOLOGY (08/30/2015 20:25 EDT) Pathology Report: SURGICAL PATHOLOGY REPORT [facility] Reports generated via electronic interface contain caroline ginal data; LABORATORY however they are lacking the format of the original re port. SERVICES Caution should be taken when reading/interpreting unfo rmatted reports. Name: ? SUYAPA STONE ? Accession #: ? [id number] ? : ? 1975 (Age: 40 ) [...] Organization Address City/State/ZIP Code Phon e Number [facility] [address] [place] [address] SERVICES documented in this encounter Visit Diagnoses Not on filedocumented in this encounter Care Teams Muck Hauler Relationship Specialty Start Date End Date Unknown, Provider, PCP - General 03/13/15 documented as of this encounter
--- OUTSIDE RECORDS SUMMARY | 2022-02-17 07:56 | XMS_ITS | Encounter Summary ---
:1975 Author Organization [facility] Address [address] [place] [address] Care Team Providers Name Role Phone Unknown, Provider Primary Care Provider Encounter Details Date Type Department Care Team Description 09/17/2020 Lab Requisition [facility] Early ontoxic single Pathology & P, TARAN thyroid nodule Laboratory Medicine [address] [place] [address] [phone] Social History Tobacco Use Types Packs/Day Years Used Date Never Assessed Sex Assigned at Date Recorded Not on file documented as of this encounter Plan of Treatment Not on filedocumented as of this encounter Procedures Procedure Name Priority Date/Time Associated Diagnosis Comme nts NON SEARCH OPTIMIZATION ANALYST/FNA Today 09/16/2020 8:25 EDT Nontoxic single Resul ts for this CYTOLOGY thyroid nodule procedure are in the results section. documented in this encounter Results NON SEARCH OPTIMIZATION ANALYST/FNA CYTOLOGY (09/16/2020 8:25 EDT) Pathologist Sig nature Final Diagnosis A. THYROID, LEFT LOBE, ULTRA SOUND GUIDED FINE NEEDLE ASPIRATION: [facility] - Benign follicular nodule. See comment. [facility] Diagnosis Comment The aspirate smears [facility] are cellular and [facility] show abundant SERVICES colloid and benign follicular cells consistent with a benign follicular nodule. Attestation There was significant reside nt/fellow involvement in the diagnostic evaluation of this case. [facility] Electronically signed By the signature below, the attending physician certifies that they have personally conducted a gross and/or microscopic [facility] by Steffi Birmingham, examination of the described specimens and rendered or confirmed the above diagnosis. SERVICES on 09/17/2020 at 1413 Rapid Diagnosis THYROID, LEFT, ULTRASOUND-GUIDED FINE NEEDLE ASP IRATION: [facility] MEDICAL Adequate; follicular cells and colloid present. [facility] Dr. Donald Hale 09/16/2020 8:25 AM SERVICES Clinical History Nontoxic goiter, [facility] left thyroid [facility] nodule; clinical SERVICES diagnosis code: E04.2 Gross Description A. [facility] 3 fixed prepared slides, 3 D iff Quik prepared slides, and 1 tube of CytoLyt were received and processed by selective cellular enhancement technique. [facility] Resident/Fellow: Jae Irwin [facility] ELISA Ott MD [facility] Performing Lab [facility] SERVICES Scanned Images [facility] SERVICES Specimen Fine Needle Aspirate - Entire left lobe of thyroid gland (body structure) Performing Organization Address City/State/ZIP Code Phon e Number [facility] [address] [place] [address] SERVICES documented in this encounter Visit Diagnoses Diagnosis Nontoxic single thyroid nodule Nontoxic uninodular goiter documented in this encounter Care Teams Hoe Worker Relationship Specialty Start Date End Date Unknown, Provider, PCP - General 03/13/15 documented as of this encounter
--- OUTSIDE RECORDS SUMMARY | 2022-02-17 07:56 | XMS_ITS | Encounter Summary ---
:1975 Author Organization [facility] Address [address] [place] [address] Care Team Providers Name Role Phone Unknown, Provider Primary Care Provider Encounter Details Date Type Department Care Team Description 09/18/2019 Lab Requisition [facility] Outr Resulting Lab, Pathology & Laboratory Provider [facility] [address] [place] [address] Social History Tobacco Use Types [...] Organization Address City/State/ZIP Code Phon e Number [facility] [place], [place] COVID-19 TESTING (09/18/2019 13:13 EDT) COVID-19 rt-PCR NEGATIVE Negative [facility] Result Comment: LABORATORY 2019-novel Coronavirus (2019 [...] Administration's Emergency Use Authorization. Performing Lab [facility] LABORATORY SERVICES Specimen Swab - Entire nasopharynx (body structur e) Performing Organization Address City/State/ZIP Code Phon e Number [facility] [address] [place] [address] SERVICES [facility] [place], [place] documented in this encounter Visit Diagnoses Not on filedocumented in this encounter Care Teams Hydraulic Operator Relationship Specialty Start Date End Date Unknown, Provider, PCP - General 03/13/15 documented as of this encounter
--- OUTSIDE RECORDS SUMMARY | 2022-02-17 07:56 | XMS_ITS | Encounter Summary ---
:1975 Author Organization [facility] Address [address] [place] [address] Care Team Providers Name Role Phone Unavailable Primary Care Provider Unavailable Encounter Details Date Type Department Care Team Description 06/14/1999 Results Only [facility] - Tiffani Sanders MD conversion [address] [place] [phone] (Wo rk) Social History Tobacco Use Types Packs/Day Years Used Date Never Assessed Sex Assigned at Date Recorded Not on file documented as of this encounter Plan of Treatment Not on filedocumented as of this encounter Procedures Procedure Name Priority Date/Time Associated Diagnosis Comme [facility] CYTOPATHOLOGY Routine 06/14/1999 14:33 EST Result s [...] : 1975 ?? 23Y F ?Client ID: [id number] SS#: [id number] ? Ac cession #: [id number] Clinician: TIFFANI BURR MD ?? Location: [facility] ??Copy to: ?? Specimen: ?Pap [...] CT(ASCP) ? Report Date : ?? 06/16/1999 [facility] Archived Tests - Final Diagnosis Text Field: Clinical History : ? Document reviewed and electronically signed by: ? Conversion ? Report Date: ??06/16/1999 00:00 End of Report Specimen Performing Organization Address City/State/ZIP Code Phon e Number [facility] [address] [place] [address] SERVICES [facility] [address] [place] [address] documented in this encounter Visit Diagnoses Not on filedocumented in this encounter
--- OUTSIDE RECORDS SUMMARY | 2022-02-17 07:56 | XMS_ITS | Clinical Summary ---
:1975 Author Organization [facility] Address [address] [place] [address] Care Team Providers Name Role Phone Unknown, Provider Primary Care Provider Social History Tobacco Use Types Packs/Day Years Used Date Never Assessed Sex Assigned at Date Recorded Not on file Plan of Treatment Health Maintenance Due Date Last Done Comments COVID-19 Vaccine (1) 1985 Insurance Payer Benefit Plan / Subscriber ID Effective Dates Phone Addre ss Type Group [facility] [id number] 2018-Present [address] [facility] [address] Care Teams Mental Health Social Worker Relationship Specialty Start Date End Date Unknown, Provider, PCP - General 03/13/15
--- OUTSIDE RECORDS SUMMARY | 2022-02-17 07:56 | XMS_ITS | Encounter Summary ---
:1975 Author Organization [facility] Address [address] [place] [address] Care Team Providers Name Role Phone Unknown, Provider Primary Care Provider Encounter Details Date Type Department Care Team Description 07/29/2019 Lab Requisition [facility] Candelario Simeon En counter for other Pathology & D, general examination Laboratory Medicine - [address] [place], [place] [address] [facility] [phone] [place], [place] [id number] Social History Tobacco Use Types Packs/Day Years [...] 12:11 EDT) COVID-19 Result Not Not Detected [facility] DetectedComment: OF HEALTH Assayed by [place] LABORATORY [facility], [place], [place] Specimen Swab - Entire nasopharynx (body structur e) Narrative This result has an attachment that is no t available. Performing Organization Address City/State/ZIP Code Phon e Number [facility] [address] [place], [place] [address] LABORATORY documented in this encounter Visit Diagnoses Diagnosis Encounter for other general examination documented in this encounter Care Teams Faa Certified Powerplant Mechanic Relationship Specialty Start Date End Date Unknown, Provider, PCP - General 03/13/15 documented as of this encounter
--- OUTSIDE RECORDS SUMMARY | 2022-02-17 07:56 | XMS_ITS | Continuity of Care Document ---
:1975 Author Organization [facility] Care Team Providers Name Role Phone [facility] Unavailable Unavailable Social History Combined list of available smoking, tobacco, and other social history from [facility] facilities. Social History Type Response Date Comment Source This section is an empty social history section. [facility]
--- OUTSIDE RECORDS SUMMARY | 2022-02-17 07:56 | XMS_ITS | Encounter Summary ---
:1975 Author Organization [facility] Address [address] [place] [address] Care Team Providers Name Role Phone Unavailable Primary Care Provider Unavailable Encounter Details Date Type Department Care Team Description 01/26/2000 Results Only [facility] - Tiffani Sanders MD conversion [address] [place] [phone] (Wo rk) Social History Tobacco Use Types [...] SUYAPA STONE ? Accession #: ? [id number] : ? 1975 (Age: 24) ??F ?Collect [...] Organization Address City/State/ZIP Code Phon e Number [facility] [address] [place] [address] SERVICES [facility] [address] [place] [address] documented in this encounter Visit Diagnoses Not on filedocumented in this encounter
--- NOTE | 2022-02-17 08:15 | DI.RAD_ITS ---
Exam(s) XR TIB/FIB RT EXAM: XR TIB/FIB RT CLINICAL HISTORY: trauma lateral pain. TECHNIQUE: 2D digital imaging was performed of the right tibia and fibula. Two images were obtained. AP and lateral views were obtained. COMPARISON: CR,XR XR TIB/FIB RT from 01/03/2020 FINDINGS: BONES: No acute fracture is present. No bony destructive lesion is seen. Visualized portion of knee a nd ankle joints are unremarkable. SOFT TISSUE: Normal. IMPRESSION: Unremarkable radiographs of the right tibia and fibula. DATA REPOSITORY: RADIATION DOSE DELIVERED:
--- NOTE | 2022-02-17 08:15 | DI.RAD_ITS ---
Exam(s) XR KNEE RT 3V AP,LAT,CYNTHIA EXAM: XR KNEE RT 3V AP,LAT,CYNTHIA CLINICAL HISTORY: trauma and lateral knee pain. TECHNIQUE: 2D digital imaging was performed of the right knee. Four views obtained. AP, lateral and PA tunnel views were obtained. COMPARISON: CR,XR XR KNEE RT 4V AP,LAT,CYNTHIA,PAT from 03/22/2019 FINDINGS: BONES: No acute fracture is present. No bony destructive lesion is seen. JOINTS: The knee is normally aligned. No joint effusion is seen. There is moderate narrowing of the l ateral femoral tibial joint. Periarticular spurring is seen involving all 3 joint compartments. SOFT TISSUE: Normal. IMPRESSION: 1. No acute fracture or dislocation. 2. Moderate DJD of the right knee. DATA REPOSITORY: RADIATION DOSE DELIVERED:
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
[2022-02-17] MEDS: Acetaminophen 500 MG TAB PO (08:48)
== END 2022-02-17 09:32 | disposition home or self-care (01) ==
PROVIDERS: Emergency Provider Nurse Practitioner Family; PCP Physician Assistant Medical
DX: S83.421A Sprain of lateral collateral ligament of right knee, initial encounter (principal); W51.XXXA Accidental striking against or bumped into by another person, initial encounter; Y99.0 Civilian activity done for income or pay; I10 Essential (primary) hypertension
CPT/HCPCS: 73562; 99284; 73590

== ENCOUNTER 2022-04-10 11:17 | Outpatient (REF) | payer BC, SELFPAY ==
[2022-04-10 16:25] LABS: ALT 55 U/L (14-59); AST 31 U/L (15-37); Albumin 4.1 g/dL (3.4-5.0); Alkaline Phosphatase 134 U/L (46-116); Anion Gap 8.2 mmol/L (3-11); BUN 16 mg/dL (7-18); Bilirubin, Total 0.3 mg/dL (0.2-1.0); CO2 26.8 mmol/L (21.0-32.0); CREATININE 0.7 mg/dL (0.55-1.02); Calcium 10.9 mg/dL (8.5-10.1); Calculated LDL 121 mg/dL (<100); Chloride 103 mmol/L (98-107); Cholesterol 206 mg/dL (<200); Estimated GFR 106.62 (mL/min/1.73m2); Glucose 130 mg/dL (74-106); HDL Cholesterol 34 mg/dL (40-60); Potassium 4.3 mmol/L (3.5-5.1); Sodium 138 mmol/L (136-145); Triglyceride 259 mg/dL (<150)
[2022-04-10 16:30] LABS: Hemoglobin A1C 6.5 % (<5.7)
== END 2022-04-10 11:18 | disposition home or self-care (01) ==
LOC: NCHCN 11:17
PROVIDERS: PCP Physician Assistant Medical; Visit Provider Physician Assistant Medical
DX: E11.9 Type 2 diabetes mellitus without complications (principal)
CPT/HCPCS: 80053; 80061; 83036

== ENCOUNTER 2022-07-05 18:09 | Outpatient (REF) | payer BC, SELFPAY ==
[2022-07-05 20:12] LABS: Hemoglobin A1C 6.3 % (<5.7)
[2022-07-05 20:13] LABS: ALT 64 U/L (14-59); AST 28 U/L (15-37); Albumin 3.9 g/dL (3.4-5.0); Alkaline Phosphatase 122 U/L (46-116); Anion Gap 6.4 mmol/L (3-11); BUN 12 mg/dL (7-18); Bilirubin, Total 0.3 mg/dL (0.2-1.0); CO2 26.6 mmol/L (21.0-32.0); CREATININE 0.8 mg/dL (0.55-1.02); Calcium 10.6 mg/dL (8.5-10.1); Calculated LDL 53 mg/dL (<100); Chloride 107 mmol/L (98-107); Cholesterol 115 mg/dL (<200); Estimated GFR 90.83 (mL/min/1.73m2); Glucose 163 mg/dL (74-106); HDL Cholesterol 31 mg/dL (40-60); Potassium 3.8 mmol/L (3.5-5.1); Sodium 140 mmol/L (136-145); Total Protein 6.4 g/dL (6.4-8.2); Triglyceride 156 mg/dL (<150)
== END 2022-07-05 18:10 | disposition home or self-care (01) ==
LOC: NCHCN 18:09
PROVIDERS: PCP Physician Assistant Medical; Visit Provider Physician Assistant Medical
DX: E11.9 Type 2 diabetes mellitus without complications (principal); I10 Essential (primary) hypertension
CPT/HCPCS: 80053; 80061; 83036

== ENCOUNTER 2022-07-07 09:36 | Emergency (ER) | payer OTHER, SELFPAY ==
[2022-07-07 09:41] VITALS: BP 127/88; PULSE 87; RESP 18; TEMP 36.7; O2SAT 96
--- NOTE | 2022-07-07 10:00 | DI.RAD_ITS ---
Exam(s) XR ELBOW RT COMPLETE EXAM: XR ELBOW RT COMPLETE CLINICAL HISTORY: injury/hyperextension. TECHNIQUE: 2D digital imaging was performed. COMPARISON: CR XR ELBOW LT COMPLETE from 09/12/2021 FINDINGS: 3 views No evidence of acute fracture nor prominent joint effusion. No swelling of the olecranon bursa. Radial head and neck appear unremarkable as does the coronoid. Capitellum and trochlea unremarkable. Epicondyles unremarkable. No loose intra-articular body evident. IMPRESSION: No acute osseous findings in the elbow. DATA REPOSITORY: RADIATION DOSE DELIVERED:
[2022-07-07] MEDS: Acetaminophen 500 MG TAB 1000 MG PO (10:16)
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
[2022-07-07 11:29] VITALS: BP 118/78; PULSE 75; RESP 18; O2SAT 99
== END 2022-07-07 11:32 | disposition home or self-care (01) ==
PROVIDERS: Emergency Provider Nurse Practitioner Family; PCP Physician Assistant Medical
DX: S59.901A Unspecified injury of right elbow, initial encounter (principal); I10 Essential (primary) hypertension; E11.9 Type 2 diabetes mellitus without complications; Z79.84 Long term (current) use of oral hypoglycemic drugs; Y99.0 Civilian activity done for income or pay; X50.0XXA Overexertion from strenuous movement or load, initial encounter
CPT/HCPCS: 99283; 73080; 99282

== ENCOUNTER 2022-11-16 14:56 | Emergency (ER) | payer BC, SELFPAY ==
[2022-11-16 15:01] VITALS: BP 125/93; PULSE 84; RESP 16; TEMP 37.1; O2SAT 98
[2022-11-16 15:31] LABS: Bilirubin Negative (Negative); Blood Negative (Negative); Clarity Clear (Clear); Glucose Negative (Negative); Ketones Negative (Negative); Leukocyte Esterase Negative (Negative); Nitrite Negative (Negative); Specific Gravity >= 1.030 (1.005-1.025); Urobilinogen 0.2 mg/dL (Up to 0.2)
[2022-11-16 16:37] VITALS: BP 122/86; PULSE 80; RESP 18; TEMP 36.9; O2SAT 95
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
--- NOTE | 2022-11-16 17:06 | NUR.NOTE ---
Nursing Note: Referral faxed to PCP for left flank pain, to be seen in 1 week.
[2022-11-16] MEDS: Cefpodoxime 200 MG TAB PO (17:29)
== END 2022-11-16 17:32 | disposition home or self-care (01) ==
PROVIDERS: Emergency Provider Emergency Medicine; PCP Physician Assistant Medical
DX: R10.9 Unspecified abdominal pain (principal); N30.90 Cystitis, unspecified without hematuria; R11.0 Nausea; E11.9 Type 2 diabetes mellitus without complications; I10 Essential (primary) hypertension; Z79.84 Long term (current) use of oral hypoglycemic drugs
CPT/HCPCS: 99283; 81003

== ENCOUNTER 2022-11-27 04:51 | Outpatient (CLI) | payer BC, SELFPAY ==
[2022-11-27 07:40] LABS: HCT 44.2 % (36.0-46.0); HGB 14.7 g/dL (11.2-15.7); MCH 27.7 pg (27.0-33.0); MCHC 33.3 % (32.0-36.0); MCV 83 fL (80-95); MPV 9.9 fL (8.0-11.0); Platelet Count 259 10^3/uL (130-400); RBC 5.31 10^6/uL (3.93-5.22); RDW 13.4 % (11.7-14.6); RDW-SD 40.8 fL; WBC 6.73 10^3/uL (4.4-10.8)
[2022-11-27 08:18] LABS: ALT 77 U/L (14-59); AST 33 U/L (15-37); Albumin 4.1 g/dL (3.4-5.0); Alkaline Phosphatase 158 U/L (46-116); Anion Gap 7.8 mmol/L (3-11); BUN 12 mg/dL (7-18); Bilirubin, Total 0.4 mg/dL (0.2-1.0); CO2 29.2 mmol/L (21.0-32.0); CREATININE 0.8 mg/dL (0.55-1.02); Calcium 11.1 mg/dL (8.5-10.1); Chloride 105 mmol/L (98-107); Estimated GFR 90.27 (mL/min/1.73m2); Glucose 142 mg/dL (74-106); Potassium 4.4 mmol/L (3.5-5.1); Sodium 142 mmol/L (136-145)
== END 2022-11-27 04:52 | disposition home or self-care (01) ==
LOC: LBO 04:51
PROVIDERS: PCP Physician Assistant Medical; Visit Provider Physician Assistant Medical
DX: R79.89 Other specified abnormal findings of blood chemistry (principal)
CPT/HCPCS: 36415; 80053; 85027

== ENCOUNTER 2022-12-09 20:14 | Emergency (ER) | payer BC, SELFPAY ==
[2022-12-09 20:17] VITALS: BP 166/112; PULSE 91; RESP 16; TEMP 36.6; O2SAT 95
--- NOTE | 2022-12-09 21:45 | DI.RAD_ITS ---
Exam(s) XR HIP LT COMPLETE AP PELVIS EXAM: XR HIP LT COMPLETE AP PELVIS INDICATION: pain. COMPARISON: CT CT CHEST/ABD/PEL W from 02/10/2021 TECHNIQUE: 2D digital imaging was performed. Three views. FINDINGS: No evidence of fracture. The hip joint spaces are maintained. SI joints and pubic symphysis are int act. IMPRESSION: Negative pelvis and left hip DATA REPOSITORY: RADIATION DOSE DELIVERED:
[2022-12-09] MEDS: Ketorolac 30 MG/ML VIAL IM (22:07)
--- NOTE | 2022-12-09 22:48 | DI.VRAD_ITS ---
PROCEDURE INFORMATION: Exam: XR Left Hip Exam date and time: 12/09/2022 10:20 PM Age: 47 years old Clinical indication: Other: Pain, nki TECHNIQUE: Imaging protocol: Radiologic exam of the left hip. Views: 2 or 3 views hip with pelvis when performed. COMPARISON: CT CHEST/ABD/PEL W 02/10/2021 12:52 PM FINDINGS: Bones/joints: No fracture or dislocation. Joint spaces are unremarkable. Soft tissues: No significant abnormality IMPRESSION: No acute findings. Dictated and Authenticated by: Prateek Zamora MD. Ordering:MARTIN Acosta MD
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
[2022-12-09 23:14] VITALS: BP 142/96; PULSE 68; RESP 14; TEMP 36.9; O2SAT 97
== END 2022-12-09 23:16 | disposition home or self-care (01) ==
PROVIDERS: Emergency Provider Nurse Practitioner Family; PCP Physician Assistant Medical
DX: M25.552 Pain in left hip (principal); I10 Essential (primary) hypertension; E11.9 Type 2 diabetes mellitus without complications; Z79.84 Long term (current) use of oral hypoglycemic drugs; E78.5 Hyperlipidemia, unspecified; Z87.891 Personal history of nicotine dependence
CPT/HCPCS: 96374; 99283; 73502; J1885

== ENCOUNTER 2023-04-03 11:30 | Emergency (ER) | payer BC, SELFPAY ==
[2023-04-03 11:35] VITALS: BP 125/86; PULSE 80; RESP 18; TEMP 36.2; O2SAT 97
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
[2023-04-03] MEDS: diphenhydrAMINE 50 MG/ML VIAL 25 MG IVP (12:18)
[2023-04-03] MEDS: Ketorolac 15 MG/ML VIAL IVP (12:24)
[2023-04-03] MEDS: Dexamethasone 10 MG/ML VIAL IVP (12:24)
[2023-04-03] MEDS: Lactated Ringers 1,000 ML 1000 ML IV (12:24)
[2023-04-03] MEDS: Metoclopramide 10 MG/2 ML VIAL IVP (12:25)
[2023-04-03] MEDS: SUMAtriptan 25 MG TAB PO (12:25)
== END 2023-04-03 13:49 | disposition home or self-care (01) ==
PROVIDERS: Emergency Provider Physician Assistant; PCP Physician Assistant Medical
DX: G43.809 Other migraine, not intractable, without status migrainosus (principal); I10 Essential (primary) hypertension; E11.40 Type 2 diabetes mellitus with diabetic neuropathy, unspecified; M54.2 Cervicalgia; G89.29 Other chronic pain; R11.0 Nausea
CPT/HCPCS: 96361; 96374; 96375; 99284; J1100; J1200; J1885; J2765

== ENCOUNTER 2023-05-21 14:04 | Outpatient (REF) | payer BC, SELFPAY | END 2023-05-21 14:05 | disposition home or self-care (01) | LOC: NCHCN 14:04 | PROVIDERS: PCP Physician Assistant Medical; Visit Provider Nurse Practitioner Family | DX: J02.9 Acute pharyngitis, unspecified (principal) | CPT/HCPCS: 87070 ==

== ENCOUNTER 2023-06-16 04:50 | Emergency (ER) | payer BC, SELFPAY ==
[2023-06-16 04:53] VITALS: BP 137/68; PULSE 68; RESP 18; TEMP 36.6; O2SAT 97
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
[2023-06-16] MEDS: predniSONE 20 MG TAB 60 MG PO (05:15)
[2023-06-16] MEDS: Lidocaine 5% Patch 1 PATCH TP (05:16)
[2023-06-16] MEDS: Cyclobenzaprine 10 MG TAB, 3 TABS/BTL PO (05:17)
== END 2023-06-16 05:22 | disposition home or self-care (01) ==
PROVIDERS: Emergency Provider Student in an Organized Health Care Education/Training Program; PCP Physician Assistant Medical
DX: S16.1XXA Strain of muscle, fascia and tendon at neck level, initial encounter (principal); M54.12 Radiculopathy, cervical region; E11.9 Type 2 diabetes mellitus without complications; I10 Essential (primary) hypertension; E78.5 Hyperlipidemia, unspecified; Z79.84 Long term (current) use of oral hypoglycemic drugs; Z87.891 Personal history of nicotine dependence; X58.XXXA Exposure to other specified factors, initial encounter
CPT/HCPCS: 99283; J7512

== ENCOUNTER 2023-06-28 18:20 | Emergency (ER) | payer BC, SELFPAY ==
[2023-06-28 18:26] VITALS: BP 130/95; PULSE 82; RESP 18; TEMP 36.6; O2SAT 98
[2023-06-28 18:34] VITALS: BP 130/95; PULSE 82; RESP 18; TEMP 36.6; O2SAT 98
--- NOTE | 2023-06-28 18:43 | NUR.NOTE ---
Referral faxed to [facility] Podiatry for diabetic foot infection, to be seen SINT[facility]. Nursing Note:
[2023-06-28] MEDS: Sulfameth/Trimeth DS, 2 TABS/BTL 1 TAB PO (18:45)
[2023-06-28 18:48] VITALS: RESP 16
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
== END 2023-06-28 18:50 | disposition home or self-care (01) ==
PROVIDERS: Emergency Provider Emergency Medicine; PCP Physician Assistant Medical
DX: L08.89 Other specified local infections of the skin and subcutaneous tissue (principal); E11.9 Type 2 diabetes mellitus without complications; I10 Essential (primary) hypertension; E78.5 Hyperlipidemia, unspecified; Z79.84 Long term (current) use of oral hypoglycemic drugs; Z87.891 Personal history of nicotine dependence
CPT/HCPCS: 99283

== ENCOUNTER 2023-07-30 07:30 | Emergency (ER) | payer OTHER, SELFPAY ==
[2023-07-30 07:34] VITALS: BP 170/89; PULSE 80; RESP 16; TEMP 36.4; O2SAT 98
--- NOTE | 2023-07-30 07:45 | DI.RAD_ITS ---
Exam(s) XR HAND RT COMPLETE XR WRIST RT COMPLETE EXAM: XR WRIST RT COMPLETE CLINICAL HISTORY: pain. TECHNIQUE: 2D digital imaging was performed. Three views of the hand and three views of the wrist.. COMPARISON: CR LEFT THUMB from 12/16/2017 CR XR HAND RT COMPLETE from 07/30/2023 FINDINGS: BONES: There is a question of a nondisplaced fracture through the medial aspect of the hamate seen on ly on the oblique views. No bony destructive lesion is seen. JOINTS: The carpal bones are normally aligned. SOFT TISSUE: Normal. IMPRESSION: Question nondisplaced fracture of the hamate. DATA REPOSITORY: RADIATION DOSE DELIVERED:
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
== END 2023-07-30 08:24 | disposition home or self-care (01) ==
PROVIDERS: Emergency Provider Emergency Medicine; PCP Physician Assistant Medical
DX: S63.501A Unspecified sprain of right wrist, initial encounter (principal); S63.601A Unspecified sprain of right thumb, initial encounter; I10 Essential (primary) hypertension; E11.9 Type 2 diabetes mellitus without complications; X50.9XXA Other and unspecified overexertion or strenuous movements or postures, initial encounter; Y93.F9 Activity, other caregiving; Y92.198 Other place in other specified residential institution as the place of occurrence of the external cause; Z79.84 Long term (current) use of oral hypoglycemic drugs; Z79.85 Long-term (current) use of injectable non-insulin antidiabetic drugs
CPT/HCPCS: 99283; 73110; 73130

== ENCOUNTER 2023-08-15 15:58 | Outpatient (CLI) | payer OTHER, SELFPAY ==
--- NOTE | 2023-08-15 14:53 | DI.RAD_ITS ---
Exam(s) XR WRIST RT COMPLETE EXAM: XR WRIST RT COMPLETE CLINICAL HISTORY: pain. TECHNIQUE: 2D digital imaging was performed. Three views. COMPARISON: CR XR WRIST RT COMPLETE from 07/30/2023 FINDINGS: BONES: No acute fracture is present. No bony destructive lesion is seen. JOINTS: The carpal bones are normally aligned. SOFT TISSUE: Normal. IMPRESSION: Unremarkable radiographs of the right wrist. DATA REPOSITORY: RADIATION DOSE DELIVERED:
== END 2023-08-15 15:59 | disposition home or self-care (01) ==
LOC: DIORS 15:59
PROVIDERS: PCP Physician Assistant Medical; Visit Provider Physician Assistant
DX: M25.531 Pain in right wrist (principal)
CPT/HCPCS: 73110

== ENCOUNTER 2023-09-10 05:24 | Outpatient (CLI) | payer BC, SELFPAY ==
[2023-09-10 07:48] LABS: Abs Immature Grans 0.01 10^3/uL (0.0-0.06); Absolute Basophil Count 0.04 10^3/uL (0.0-0.2); Absolute Eosinophil Count 0.18 10^3/uL (0.0-0.7); Absolute Lymphocyte Count 1.51 10^3/uL (1.2-3.4); Absolute Monocyte Count 0.33 10^3/uL (0.1-0.8); Absolute Neutrophil Count 2.95 10^3/uL (1.2-6.7); Basophils % 0.8 %; Eosinophils % 3.6 %; HCT 44.3 % (36.0-46.0); HGB 14.4 g/dL (11.2-15.7); Immature Grans % 0.2 %; Lymphocytes % 30.1 %; MCH 27.4 pg (27.0-33.0); MCHC 32.5 % (32.0-36.0); MCV 84 fL (80-95); Monocytes % 6.6 %; Neutrophils % 58.7 %; Platelet Count 218 10^3/uL (130-400); RBC 5.25 10^6/uL (3.93-5.22); RDW 13.4 % (11.7-14.6); RDW-SD 41.2 fL; WBC 5.02 10^3/uL (4.4-10.8)
[2023-09-10 08:05] LABS: ALT 41 U/L (14-59); AST 17 U/L (15-37); Albumin 3.9 g/dL (3.4-5.0); Alkaline Phosphatase 107 U/L (46-116); Anion Gap 8.5 mmol/L (3-11); BUN 12 mg/dL (7-18); Bilirubin, Total 0.4 mg/dL (0.2-1.0); CO2 29.5 mmol/L (21.0-32.0); CREATININE 0.8 mg/dL (0.55-1.02); Calcium 10.6 mg/dL (8.5-10.1); Calculated LDL 62 mg/dL (<100); Chloride 108 mmol/L (98-107); Cholesterol 121 mg/dL (<200); Estimated GFR 89.71 (mL/min/1.73m2); Glucose 123 mg/dL (74-106); HDL Cholesterol 41 mg/dL (40-60); Potassium 4.3 mmol/L (3.5-5.1); Sodium 146 mmol/L (136-145); Total Protein 6.5 g/dL (6.4-8.2); Triglyceride 92 mg/dL (<150)
== END 2023-09-10 05:25 | disposition home or self-care (01) ==
PROVIDERS: PCP Physician Assistant Medical; Visit Provider Physician Assistant Medical
DX: E11.9 Type 2 diabetes mellitus without complications (principal); E78.5 Hyperlipidemia, unspecified; K76.0 Fatty (change of) liver, not elsewhere classified
CPT/HCPCS: 36415; 80053; 80061; 83036; 85025

== ENCOUNTER 2023-10-30 10:07 | Emergency (ER) | payer BC, SELFPAY ==
[2023-10-30] VITALS (20 sets, daily range): BP systolic 118–145; BP diastolic 54–87; PULSE 62–80; RESP 8–24; TEMP 37; O2SAT 93–99
[2023-10-30] MEDS: Normal Saline 1,000 ML 1000 ML IV (10:41)
[2023-10-30 10:45] LABS: Abs Immature Grans 0.01 10^3/uL (0.0-0.06); Absolute Basophil Count 0.02 10^3/uL (0.0-0.2); Absolute Eosinophil Count 0.16 10^3/uL (0.0-0.7); Absolute Lymphocyte Count 1.45 10^3/uL (1.2-3.4); Absolute Monocyte Count 0.38 10^3/uL (0.1-0.8); Basophils % 0.4 %; Eosinophils % 3.1 %; HCT 42.5 % (36.0-46.0); HGB 14.1 g/dL (11.2-15.7); Immature Grans % 0.2 %; Lymphocytes % 27.8 %; MCH 28.1 pg (27.0-33.0); MCHC 33.2 % (32.0-36.0); MCV 85 fL (80-95); MPV 10.2 fL (8.0-11.0); Monocytes % 7.3 %; Neutrophils % 61.2 %; Platelet Count 203 10^3/uL (130-400); RBC 5.02 10^6/uL (3.93-5.22); RDW 13.6 % (11.7-14.6); RDW-SD 41.3 fL; WBC 5.22 10^3/uL (4.4-10.8)
[2023-10-30] MEDS: Ondansetron 4 MG/2 ML VIAL IVP (10:46)
[2023-10-30] MEDS: Ketorolac 15 MG/ML VIAL 10 MG IVP (10:46)
[2023-10-30 10:55] LABS: BUN 8 mg/dL (7-18); CREATININE 0.7 mg/dL (0.55-1.02); Calcium 10.1 mg/dL (8.5-10.1); Chloride 108 mmol/L (98-107); Glucose 117 mg/dL (74-106); Lipase 45 U/L (16-77); Potassium 4.1 mmol/L (3.5-5.1); Sodium 143 mmol/L (136-145)
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
== END 2023-10-30 12:04 | disposition home or self-care (01) ==
LOC: ER 11:52
PROVIDERS: Emergency Provider Emergency Medicine; PCP Physician Assistant Medical
DX: R11.10 Vomiting, unspecified (principal); R51.9 Headache, unspecified; R19.7 Diarrhea, unspecified
CPT/HCPCS: 80048; 83690; 96361; 96374; 96375; 99284; 85025; J1885; J2405

== ENCOUNTER 2023-11-21 19:12 | Outpatient (REF) | payer BC, SELFPAY | END 2023-11-21 19:13 | disposition home or self-care (01) | LOC: NCHCN 19:12 | PROVIDERS: PCP Physician Assistant Medical; Visit Provider Physician Assistant Medical | DX: R30.0 Dysuria (principal); N89.8 Other specified noninflammatory disorders of vagina | CPT/HCPCS: 87480; 87510; 87660 ==

== ENCOUNTER 2024-02-13 20:10 | Emergency (ER) | payer BC, SELFPAY ==
[2024-02-13 20:14] VITALS: BP 140/85; PULSE 80; RESP 15; TEMP 36.5; O2SAT 98
[2024-02-13 20:18] VITALS: BP 140/85; PULSE 80; RESP 15; TEMP 36.5; O2SAT 98
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
[2024-02-13] MEDS: Clindamycin 150 MG CAP 450 MG PO (21:17)
[2024-02-13] MEDS: Clindamycin 150 MG CAP, 12 CAPS/BTL 450 MG PO (21:17)
[2024-02-13] MEDS: Benzocaine 20% Gel 30 GM JAR MM (21:17)
== END 2024-02-13 21:19 | disposition home or self-care (01) ==
PROVIDERS: Emergency Provider Registered Nurse Emergency; PCP Physician Assistant Medical
DX: K08.89 Other specified disorders of teeth and supporting structures (principal); I10 Essential (primary) hypertension; E78.5 Hyperlipidemia, unspecified; E11.9 Type 2 diabetes mellitus without complications; Z79.84 Long term (current) use of oral hypoglycemic drugs; Z87.891 Personal history of nicotine dependence
CPT/HCPCS: 99283

== ENCOUNTER 2024-06-10 14:03 | Outpatient (REF) | payer BC, SELFPAY | END 2024-06-10 14:04 | disposition home or self-care (01) | LOC: NCHCN 14:03 | PROVIDERS: PCP Physician Assistant Medical; Visit Provider Physician Assistant Medical | DX: R30.0 Dysuria (principal); R82.89 Other abnormal findings on cytological and histological examination of urine | CPT/HCPCS: 87086 ==

== ENCOUNTER 2024-09-22 12:09 | Outpatient (REF) | payer BC, SELFPAY ==
[2024-09-22 17:22] LABS: Abs Immature Grans 0.01 10^3/uL (0.0-0.06); Absolute Basophil Count 0.05 10^3/uL (0.0-0.2); Absolute Eosinophil Count 0.18 10^3/uL (0.0-0.7); Absolute Lymphocyte Count 1.34 10^3/uL (1.2-3.4); Absolute Monocyte Count 0.33 10^3/uL (0.1-0.8); Absolute Neutrophil Count 2.65 10^3/uL (1.2-6.7); Basophils % 1.1 %; Eosinophils % 3.9 %; HCT 42.3 % (36.0-46.0); HGB 13.6 g/dL (11.2-15.7); Immature Grans % 0.2 %; Lymphocytes % 29.4 %; MCH 26.5 pg (27.0-33.0); MCHC 32.2 % (32.0-36.0); MCV 82 fL (80-95); MPV 10.7 fL (8.0-11.0); Monocytes % 7.2 %; Neutrophils % 58.2 %; Platelet Count 221 10^3/uL (130-400); RBC 5.14 10^6/uL (3.93-5.22); RDW 13.4 % (11.7-14.6); RDW-SD 39.8 fL; WBC 4.56 10^3/uL (4.4-10.8)
[2024-09-22 17:59] LABS: ALT 41 U/L (14-59); AST 26 U/L (15-37); Albumin 3.8 g/dL (3.4-5.0); Alkaline Phosphatase 123 U/L (46-116); Anion Gap 6.2 mmol/L (3-11); BUN 10 mg/dL (7-18); Bilirubin, Total 0.4 mg/dL (0.2-1.0); CO2 26.8 mmol/L (21.0-32.0); CREATININE 0.8 mg/dL (0.55-1.02); Calcium 10.5 mg/dL (8.5-10.1); Calculated LDL 74 mg/dL (<100); Chloride 105 mmol/L (98-107); Cholesterol 135 mg/dL (<200); Estimated GFR 89.15 (mL/min/1.73m2); Glucose 141 mg/dL (74-106); HDL Cholesterol 45 mg/dL (>or=50); Potassium 4.3 mmol/L (3.5-5.1); Sodium 138 mmol/L (136-145); Total Protein 6.6 g/dL (6.4-8.2); Triglyceride 83 mg/dL (<150)
== END 2024-09-22 12:10 | disposition home or self-care (01) ==
LOC: NCHCN 12:09
PROVIDERS: PCP Physician Assistant Medical; Visit Provider Physician Assistant Medical
DX: I10 Essential (primary) hypertension (principal); E78.5 Hyperlipidemia, unspecified; K76.0 Fatty (change of) liver, not elsewhere classified
CPT/HCPCS: 80053; 80061; 85025

== ENCOUNTER 2024-10-20 00:13 | Outpatient (CLI) | payer BC, SELFPAY ==
--- NOTE | 2024-10-20 | DI.MRI_ITS ---
Exam(s) MR CERVICAL SPINE WO EXAM: MR CERVICAL SPINE WO CLINICAL HISTORY: Cervicalgia M54.2 Chronic Neck pain Previous: 08/03/20 TECHNIQUE: Multiplanar multisequence MRI of the cervical spine was performed without intravenous contrast. COMPARISON: MR MR CERVICAL SPINE WO from 08/03/2020 FINDINGS: BONES: Vertebral body heights are maintained. Intervertebral disc spaces are normal. Alignment is normal. Degenerative endplate signal changes are seen from C4-C5 through C6-C7. CERVICAL CORD: Craniovertebral junction is unremarkable. The cervical cord is normal size and signal intensity. SOFT TISSUES: There is a 3.3 x 3.5 cm complex mass in the soft tissues to the left of the trachea. It appears to be of thyroid origin. A nonemergent thyroid ultrasound is recommended for further evaluation. (Series 6001, image 8). C2-3: No disc herniation or bulge is identified. No significant central spinal canal or neural foraminal stenosis. C3-4: No disc herniation or bulge is identified. No significant central spinal canal or neural foraminal stenosis C4-5: There is prominence of the osteophyte disc complex effacing the anterior subarachnoid space causing mild central spinal canal stenosis. Bilateral degenerative changes of the uncovertebral joints are noted resulting in moderate bilateral neural foraminal stenosis. C5-6: There is mild prominence of the osteophyte disc complex and a small right paracentral disc herniation. No significant central spinal canal stenosis is seen. Degenerative changes are seen at the right uncovertebral joint causing [id number] right neural foraminal stenosis. There is no significant left neural foraminal stenosis. C6-7: There is mild prominence of the osteophyte disc complex. There are degenerative changes seen at the left uncovertebral joint. No significant central spinal canal or right neural foraminal stenosis is seen. There is moderate left neural foraminal stenosis. C7-T1: No disc herniation or bulge is identified. No significant central spinal canal or neural foraminal stenosis IMPRESSION: 1. Degenerative changes at C4-C5 causing mild central spinal canal stenosis and bilateral neural foraminal stenosis. 2. 3.3 x 3.5 cm complex mass in the soft tissues of the left neck. It appears to be thyroid in origin. If not done previously, a nonemergent thyroid ultrasound is recommended for further evaluation. 3. Multilevel degenerative changes in the cervical spine as described above. Unexpected findings DATA REPOSITORY:
== END 2024-10-20 00:33 ==
LOC: DI 00:13
PROVIDERS: PCP Physician Assistant Medical; Visit Provider Physician Assistant Medical
DX: M48.02 Spinal stenosis, cervical region (principal); M99.63 Osseous and subluxation stenosis of intervertebral foramina of lumbar region
CPT/HCPCS: 72141

== ENCOUNTER 2024-11-11 01:35 | Outpatient (CLI) | payer BC, SELFPAY ==
--- NOTE | 2024-11-11 10:13 | DI.MAMMO_ITS ---
Exam(s) MAMMO SCREENING EXAM: MAMMO SCREENING CLINICAL HISTORY: Screening, Z12.31; hysterectomy 10+ years ago. TECHNIQUE: Bilateral full field digital CC and MLO mammographic images were obtained with 3D tomosynthesis and utilizing computer aided detection (CAD). COMPARISON: None available FINDINGS: No significant left breast findings. Area of asymmetric density-possible nodule in the right breast located 10 cm in from the nipple, slightly lateral of center on the CC view. Recommend further imaging. There are no malignant-appearing microcalcification groups is region or elsewhere in either breast. There is no significant architectural distortion nor skin thickening-retraction. IMPRESSION: 1. No radiographic evidence of malignancy in left breast. 2. Asymmetric density-possible nodule in the right breast. Spot compression view and ultrasound recommended. BI-RADS Category 0 - Incomplete: Need additional imaging evaluation Breast Density - Category B - There are scattered areas of fibroglandular density. Breast density Category C or D implies that the patient has dense breast tissue. Dense breast tissue can make it harder to find cancer on a mammogram. Dense breast tissue is also associated with an increased risk of breast cancer. This information about the result of the mammogram report was provided to the patient to raise their awareness. Use this report when you speak with the patient about their risks for breast cancer, which includes their family history. At that time, you may recommend additional screening tests (Ultrasound or MRI) as these tests may add significant information. A negative radiographic report should not delay biopsy if a dominant or clinically suspicious mass is present. Up to ten percent of cancers are not identified on mammography. A negative report may reinforce clinical impression. Adenosis and dense breasts may obscure an underlying neoplasm. False positive reports average 6 to 10%. Patient will receive a letter notifying them of these results.
== END 2024-11-11 01:55 ==
PROVIDERS: PCP Physician Assistant Medical; Visit Provider Physician Assistant Medical
DX: Z12.31 Encounter for screening mammogram for malignant neoplasm of breast (principal); R92.323 Mammographic fibroglandular density, bilateral breasts
CPT/HCPCS: 77063; 77067

== ENCOUNTER 2024-11-14 00:34 | Outpatient (CLI) | payer BC, SELFPAY ==
--- NOTE | 2024-11-14 | DI.US_ITS ---
Exam(s) MG MAMMO SCREEN CALL BACK UNI US BREAST RT COMPLETE EXAM: MG MAMMO SCREEN CALL BACK UNI-RIGHT AND COMPLETE RIGHT BREAST ULTRASOUND CLINICAL HISTORY: Asymmetric density-possible nodule 10 cm from nipple, Rt breast. TECHNIQUE: Unilateral RIGHT BREAST spot mammographic images obtained with 3D tomosynthesisand utilizing computer aided detection (CAD). . Complete RIGHT breast Ultrasound was also performed, including all 4 quadrants, the retroareolar region, and the ipsilateral axilla. COMPARISON: Prior mammograms were reviewed. This additional imaging was performed due to findings described on the recent screening mammogram of 11/11/2024. FINDINGS: DIAGNOSTIC MAMMOGRAM: Additional mammographic view performed todayis equivocal the presence of a true nodule. We proceeded with ultrasound COMPLETE RIGHT BREAST ULTRASOUND: Ultrasound performed today reveals finding at the 9 o'clock position which upon real-time imaging has appearance of probable shadowing from a Sergio's ligament. At the 10 o'clock position there is a small 3 mm oval finding which is probably a hemorrhagic cyst. There are no other focal ultrasound findings in all 4 quadrants. Scanning of the ipsilateral axilla reveals no significant adenopathy. IMPRESSION: 1. Findings at the 9-10 o'clock positions as described above. May or may not correspond to the finding on the mammogram. 2. Appropriate follow-up is repeat right breast imaging in 3 months to include repeat right breast mammogram and ultrasound. Unfortunately her last mammogram was 2011 and not available for comparison The patient and her were informed of these findings and recommendations by myself prior to leaving the department today. BI-RADS Category 3 - 3 month - Probably Benign Finding: Recommend follow-up mammography in 3 months Breast Density - Category B - There are scattered areas of fibroglandular density. Breast density Category C or D implies that the patient has dense breast tissue. Dense breast tissue can make it harder to find cancer on a mammogram. Dense breast tissue is also associated with an increased risk of breast cancer. This information about the result of the mammogram report was provided to the patient to raise their awareness. Use this report when you speak with the patient about their risks for breast cancer, which includes their family history. At that time, you may recommend additional screening tests (Ultrasound or MRI) as these tests may add significant information. A negative radiographic report should not delay biopsy if a dominant or clinically suspicious mass is present. Up to ten percent of cancers are not identified on mammography. A negative report may reinforce clinical impression. Adenosis and dense breasts may obscure an underlying neoplasm. False positive reports average 6 to 10%. Patient will receive a letter notifying them of these results.
== END 2024-11-14 00:54 ==
LOC: DI 00:34
PROVIDERS: PCP Physician Assistant Medical; Visit Provider Physician Assistant Medical
DX: Z12.31 Encounter for screening mammogram for malignant neoplasm of breast (principal); R92.323 Mammographic fibroglandular density, bilateral breasts
CPT/HCPCS: 76642; 77063; 77067

== ENCOUNTER 2025-01-12 16:23 | Outpatient (REF) | payer BC, SELFPAY ==
[2025-01-12 19:35] LABS: Hemoglobin A1C 6.4 % (<5.7)
[2025-01-12 20:38] LABS: Anion Gap 8.2 mmol/L (3-11); BUN 7 mg/dL (7-18); CO2 29.8 mmol/L (21.0-32.0); Calcium 10.9 mg/dL (8.5-10.1); Chloride 103 mmol/L (98-107); Estimated GFR 104.65 (mL/min/1.73m2); Glucose 99 mg/dL (74-106); Potassium 4.6 mmol/L (3.5-5.1); Sodium 141 mmol/L (136-145)
[2025-01-13 11:09] LABS: TSH 1.40 uIU/mL (0.36-3.74)
[2025-01-15 20:25] LABS: Vitamin D 25 Total 20 ng/mL (30-100)
== END 2025-01-12 16:24 | disposition home or self-care (01) ==
LOC: NCHCN 16:23
PROVIDERS: PCP Physician Assistant Medical; Visit Provider Physician Assistant Medical
DX: E11.69 Type 2 diabetes mellitus with other specified complication (principal); E83.52 Hypercalcemia
CPT/HCPCS: 80048; 82306; 83036; 83970; 84439; 84443

== ENCOUNTER 2025-01-15 18:50 | Emergency (ER) | payer BC, SELFPAY ==
[2025-01-15 18:55] VITALS: BP 137/84; PULSE 78; RESP 16; O2SAT 98
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
[2025-01-15 19:46] VITALS: RESP 18
== END 2025-01-15 19:52 | disposition home or self-care (01) ==
PROVIDERS: Emergency Provider Physician Assistant; PCP Physician Assistant Medical
DX: K64.4 Residual hemorrhoidal skin tags (principal)
CPT/HCPCS: 99282; 99283

== ENCOUNTER 2025-01-22 08:30 | Emergency (ER) | payer BC, SELFPAY ==
[2025-01-22 08:31] VITALS: BP 149/95; PULSE 89; RESP 14; TEMP 37.3; O2SAT 99
[2025-01-22 08:39] VITALS: BP 149/95; PULSE 89; RESP 14; TEMP 37.3; O2SAT 99
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
[2025-01-22] MEDS: Acetaminophen 500 MG TAB (08:53)
[2025-01-22 09:03] VITALS: BP 155/92; PULSE 89; RESP 18; O2SAT 97
== END 2025-01-22 09:05 | disposition home or self-care (01) ==
PROVIDERS: Emergency Provider Student in an Organized Health Care Education/Training Program; PCP Physician Assistant Medical
DX: S00.83XA Contusion of other part of head, initial encounter (principal); V48.0XXA Car driver injured in noncollision transport accident in nontraffic accident, initial encounter
CPT/HCPCS: 99283; 99282

== ENCOUNTER 2025-02-02 02:46 | Outpatient (CLI) | payer BC, SELFPAY ==
--- NOTE | 2025-02-02 | DI.US_ITS ---
Exam(s) US THYROID EXAM: US THYROID CLINICAL HISTORY: SINGLE THYROID NODULE E04.1. TECHNIQUE: Ultrasound thyroid performed using standard protocol. COMPARISON: US US THYROID from 09/19/2021 FINDINGS: Bilateral nodules are again noted. This patient apparently had a prior ultrasound-guided FNA of a left lobe nodule at outside institution. RIGHT THYROID LOBE: Measures 2.1 cm AP x 1.6 cm wide x 5.0 cm craniocaudal Multiple nodules are again noted, most of which are under 1 cm size. With respect to the more important nodules in the right lobe: Nodule #1. This is located in the medial aspect of the right lobe and measures 1.2 by 0.6 x 1.0 cm Composition: Solid-2 points Echogenicity: Hypoechoic-2 points Shape: Wider than taller-0 points Margin: Smooth- 0 points Echogenic Foci: Contains punctate echogenic foci-3 points Total Points for this nodule: 6 ACR Ti-Rads Category: TR4 This TR 4 level nodule can be followed as it measures less than 1.5 cm. Nodule #2. This nodule is located at the junction of the isthmus and right lobe and measures 0.7 x 0.3 x 0.8 cm Composition: Solid-2 points Echogenicity: Isoechoic-1 point Shape: Wider than taller- 0 points Margin: Ofq-ofmcggc-0 points Echogenic Foci: Contains a macro calcification-1 point Total points for this nodule: 4 ACR Ti-Rads Category: TR4 This nodule can be followed as it measures less than 1.5 cm. ISTHMUS: Normal thickness. There are no nodules in the isthmus. LEFT THYROID LOBE: Measures 4.8 cm AP x 3.7 wide x 6.9 cm craniocaudal The left lobe is enlarged as it is expanded by the dominant solid nodule which has apparently undergone prior biopsy. This nodule presently measures 5.0 x 3.2 x 3.9 cm Composition: Solid-2 points Echogenicity: Isoechoic-1 points Shape: Wider than taller-0 points Margin: Smooth-1 points Echogenic Foci: Contains-1 points Total points for this nodule: 5 ACR Ti-Rads Category: 4 This TR 4 level nodule should undergo biopsy as it measures greater than 1.5 cm. LYMPH NODES: There is no significant adenopathy. IMPRESSION: 1. There are 2 nodules in the right lobe/isthmus region which require follow-up in 1 year. 2. The dominant solid nodule in the left lobe is a TR 4 level nodule which requires ultrasound-guided biopsy as it measures greater than 1.5 cm. 3. There is no significant lymphadenopathy. DATA REPOSITORY:
--- NOTE | 2025-02-02 13:07 | DI.RAD_ITS ---
Exam(s) XR HIP RT COMPLETE AP PELVIS EXAM: XR HIP RT COMPLETE AP PELVIS CLINICAL HISTORY: PAIN RT HIP M25.551 ACUTE RT HIP PAIN. TECHNIQUE: 2D digital imaging was performed. COMPARISON: CR,XR XR HIP LT COMPLETE AP PELVIS from 12/09/2022 FINDINGS: 3 views No evidence of pelvic nor hip fracture. No hip joint space narrowing. No osteophytes. There is asymmetric narrowing of the right side of the L4-5 disc space noted. IMPRESSION: No acute osseous findings in the pelvis and hips. Significant degenerative disc disease at L4-5 level incidentally noted. DATA REPOSITORY: RADIATION DOSE DELIVERED:
== END 2025-02-02 03:06 ==
LOC: DI 02:46
PROVIDERS: PCP Physician Assistant Medical; Visit Provider Physician Assistant Medical
DX: M51.371 Other intervertebral disc degeneration, lumbosacral region with lower extremity pain only (principal)
CPT/HCPCS: 73502; 76536

== ENCOUNTER 2025-02-23 02:35 | Outpatient (CLI) | payer BC, SELFPAY ==
--- NOTE | 2025-02-23 | DI.MAMMO_ITS ---
Exam(s) MG MAMMO DIAGNOSTIC UNI US BREAST RT LIMITED EXAM: MG MAMMO DIAGNOSTIC UNI and U/S breast RT limited CLINICAL HISTORY: ABNL MAMMO R92.8 RIGHT BREAST FU MAMMO FROM 11/14/24. TECHNIQUE: Craniocaudal and mediolateral oblique Full Field Digital Mammography views of the right breast with Computer Aided Diagnosis followed by Tomosynthesis and limited right breast ultrasound. COMPARISON: Comparison is made with prior examinations. FINDINGS: Mammography/Tomosynthesis: Masses/Architectural Distortion: There are no suspicious masses or areas of architectural distortion present. Microcalcifictions: No suspicious pleomorphic-type are seen. Skin Thickening/Nipple Retraction: None. Limited right breast US: Echotexture: Normal appearance of the glandular tissue. Shadowing: No suspicious foci. Cyst: None. Solid lesions: None seen. Ductal dilation: None. IMPRESSION: 1. No evidence of malignancy is noted. 2. Unless there is more urgent need, follow-up screening mammography is recommended, as per [employer] guidelines. 3. The findings were discussed with the patient on the date of the examination. BI-RADS Category 1 - Negative Breast Density - Category B - There are scattered areas of fibroglandular density. Breast density Category C or D implies that the patient has dense breast tissue. Dense breast tissue can make it harder to find cancer on a mammogram. Dense breast tissue is also associated with an increased risk of breast cancer. This information about the result of the mammogram report was provided to the patient to raise their awareness. Use this report when you speak with the patient about their risks for breast cancer, which includes their family history. At that time, you may recommend additional screening tests (Ultrasound or MRI) as these tests may add significant information. A negative radiographic report should not delay biopsy if a dominant or clinically suspicious mass is present. Up to ten percent of cancers are not identified on mammography. A negative report may reinforce clinical impression. Adenosis and dense breasts may obscure an underlying neoplasm. False positive reports average 6 to 10%. Patient will receive a letter notifying them of these results.
== END 2025-02-23 02:55 ==
LOC: DI 02:35
PROVIDERS: PCP Physician Assistant Medical; Visit Provider Physician Assistant Medical
DX: Z12.31 Encounter for screening mammogram for malignant neoplasm of breast (principal); R92.8 Other abnormal and inconclusive findings on diagnostic imaging of breast
CPT/HCPCS: 76642; 77061; 77065; G0279

== ENCOUNTER 2025-02-25 07:48 | Emergency (ER) | payer SELFPAY ==
[2025-02-25 07:52] VITALS: BP 132/84; PULSE 72; RESP 16; TEMP 36.5; O2SAT 96
--- NOTE | 2025-02-25 08:15 | DI.RAD_ITS ---
Exam(s) XR LUMBAR SPINE COMPLETE EXAM: XR LUMBAR SPINE COMPLETE CLINICAL HISTORY: pain post fall. TECHNIQUE: 2D digital imaging was performed of the lumbar spine. Five images were obtained. AP, lateral, right oblique, left oblique and L5-S1 spot views were obtained. COMPARISON: CT CT CHEST/ABD/PEL W from 02/10/2021 FINDINGS: BONES: No fracture or destructive lesion. There are endplate osteophytes at several levels in the lower thoracic and upper lumbar spine. Facet arthropathy is seen in the lower lumbar spine particularly at L4-L5. DISKS: There is disc space narrowing at L4-L5. ALIGNMENT: There is a dextro scoliosis of the thoracolumbar spine. This has progressed since examination from 2020. no spondylolysis or spondylolisthesis. SOFT TISSUE: There are surgical clips in the right upper quadrant of the abdomen. IMPRESSION: No definite acute fracture or dislocation is seen. DATA REPOSITORY: RADIATION DOSE DELIVERED:
--- NOTE | 2025-02-25 08:15 | DI.RAD_ITS ---
Exam(s) XR HIP RT COMPLETE AP PELVIS EXAM: XR HIP RT COMPLETE AP PELVIS CLINICAL HISTORY: pain post fall. TECHNIQUE: 2D digital imaging was performed of the right hip. Two images were obtained. AP pelvis and lateral right hip views were obtained. COMPARISON: CR XR HIP RT COMPLETE AP PELVIS from 02/02/2025 FINDINGS: BONES: No acute fracture is present. No bony destructive lesion is seen. JOINTS: No dislocation present. SOFT TISSUE: Normal. IMPRESSION: No acute fracture or dislocation is present. DATA REPOSITORY: RADIATION DOSE DELIVERED:
--- NOTE | 2025-02-25 08:15 | DI.RAD_ITS ---
Exam(s) XR ELBOW RT COMPLETE EXAM: XR ELBOW RT COMPLETE CLINICAL HISTORY: pain post fall. TECHNIQUE: 2D digital imaging was performed of the left elbow. Three images were obtained. AP, lateral and oblique views were obtained. COMPARISON: CR XR ELBOW RT COMPLETE from 07/07/2022 FINDINGS: BONES: No acute fracture is present. No bony destructive lesion is seen. JOINTS: The elbow is normally aligned. No joint effusion is seen. SOFT TISSUE: Normal. IMPRESSION: Unremarkable radiographs of the right elbow. DATA REPOSITORY: RADIATION DOSE DELIVERED:
[2025-02-25] MEDS: Ketorolac 15 MG/ML VIAL IVP (09:43)
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
== END 2025-02-25 10:17 | disposition home or self-care (01) ==
PROVIDERS: Emergency Provider Physician Assistant; PCP Physician Assistant Medical
DX: S70.02XA Contusion of left hip, initial encounter (principal); S50.02XA Contusion of left elbow, initial encounter; S39.012A Strain of muscle, fascia and tendon of lower back, initial encounter; E78.5 Hyperlipidemia, unspecified; I10 Essential (primary) hypertension; E11.9 Type 2 diabetes mellitus without complications; W01.0XXA Fall on same level from slipping, tripping and stumbling without subsequent striking against object, initial encounter; Y93.01 Activity, walking, marching and hiking; Y92.69 Other specified industrial and construction area as the place of occurrence of the external cause; Y99.0 Civilian activity done for income or pay; Z79.84 Long term (current) use of oral hypoglycemic drugs
CPT/HCPCS: 96374; 99283; 72110; 73080; 73502; J1885

== ENCOUNTER → 2025-03-06 03:37 | Outpatient (CLI) | payer BC, SELFPAY ==
--- NOTE | 2025-03-06 14:31 | DI.DEXA_ITS ---
Exam(s) XR DEXA BONE DENSITY W/WO STEVE EXAM: XR DEXA BONE DENSITY W/WO STEVE CLINICAL HISTORY: HYPERPARATHYROIDISM E21.3 HYPERCALCEMIA, R/O OSTEORPROSIS TECHNIQUE: COMPARISON: CR XR HIP RT COMPLETE AP PELVIS from 02/25/2025 FINDINGS: Lateral Spine Image: Unremarkable. No compression deformities identified. Left hip: Total T-Score: 0.3 Total Z-Score: 0.8 T- and Z-scores: Within normal limits. Lumbar Spine: Total T-Score: 0.4 Total Z-Score: 1.2 T- and Z-scores: Within normal limits. IMPRESSION: No evidence of osteoporosis.
== END ==
PROVIDERS: PCP Physician Assistant Medical; Visit Provider Family Medicine
DX: E21.3 Hyperparathyroidism, unspecified (principal)
CPT/HCPCS: 77080

== ENCOUNTER 2025-04-22 09:11 | Emergency (ER) | payer BC, SELFPAY ==
[2025-04-22] VITALS (33 sets, daily range): BP systolic 117–197; BP diastolic 84–108; PULSE 75–119; RESP 12–44; TEMP 36.9; O2SAT 92–100
--- NOTE | 2025-04-22 09:45 | RT.EKG_ITS ---
APPROVED REPORT Exam: Resting ECG Reason for Exam: Hypercalcemia Patient Location: E HR:94 bpm ECG Measurements Heart Rate 94 AXIS CA 145 P 84 QRSd 97 QRS 76 QT 340 T 39 QTc 425 Conclusion Sinus rhythm...normal P axis, V-rate 60- 99
--- NOTE | 2025-04-22 09:45 | DI.CT_ITS ---
Exam(s) CT ABDOMEN PELVIS W EXAM: CT ABDOMEN PELVIS W CLINICAL HISTORY: right flank pain, chills. TECHNIQUE: Imaging Protocol: Axial computed tomography images with coronal and sagittal reformatted images were created and reviewed CONTRAST MATERIAL: Intravenous: Omnipaque 350 Contrast volume:100 ml Oral: yes COMPARISON: CT CT THORAX ABD/PEL CTA from 09/21/2021 FINDINGS: ABDOMEN and PELVIS: Lung Bases: No acute findings. Liver: Normal size and density. The liver no longer appears steatotic. No suspicious mass. Gallbladder and biliary tract: Cholecystectomy. No biliary dilation. Pancreas: Normal density. No abnormal calcifications or inflammatory process. No evidence of mass. Spleen: Stable enlargement at 16.5 cm in length Kidneys: Normal size, contour and axis. No radiodense stones. No obstructive uropathy. No suspicious masses seen. No findings to suggest pyelonephritis. Adrenal glands: No masses seen. Vasculature: Abdominal aorta non-dilated. Soft tissues: Unremarkable. Bladder: No gross wall thickening. No calculi.No focal mass. Bowel: No obstruction. No bowel wall thickening. Appendix normal. Diverticulosis of the lower descending and sigmoid colon. No evidence of diverticulitis. Peritoneal cavity: No ascites. No focal collection. No mesenteric inflammatory response. No free air. Bones: Degenerative changes and scoliosis. Reproductive organs: Hysterectomy. Lymph nodes: No pathologically enlarged lymph nodes. IMPRESSION:: No acute abnormality in the abdomen or pelvis. Stable splenic enlargement. Diverticulosis without evidence of diverticulitis. RADIATION DOSE DELIVERED: 833.22mGy.cm Total DLP DATA REPOSITORY: All CT scans at this facility are submitted to the National Radiology Data Registry (NRDR) Dose Index Registry (DIR) with the [employer] ([employer]). RADIATION OPTIMIZATION: All CT scans at this facility use at least one of these dose optimization techniques: automated exposure control; mA and/or kV adjustment per patient size (includes targeted exams where dose is matched to clinical indication); or iterative reconstruction.
[2025-04-22 10:08] LABS: Glucose Negative (Negative)
[2025-04-22] MEDS: ACETAMINOPHEN 500 MG/50 ML BAG 200 MG IVPB (10:21)
[2025-04-22] MEDS: Normal Saline 1,000 ML 1000 ML IV (10:24)
[2025-04-22] MEDS: Omnipaque 350 MG/ML 100 ML BTL IJ (10:28)
[2025-04-22] MEDS: Normal Saline - Diluent 50 ML VIAL IJ (10:28)
[2025-04-22] MEDS: diazePAM 10 MG/2 ML SYR 5 MG IVP (10:30)
[2025-04-22] MEDS: Normal Saline Flush 10 ML SYR IVP (10:38)
[2025-04-22 10:43] LABS: Abs Immature Grans 0.02 10^3/uL (0.0-0.06); HCT 42.9 % (36.0-46.0); HGB 13.6 g/dL (11.2-15.7); Immature Grans % 0.2 %; MCH 24.6 pg (27.0-33.0); MCHC 31.7 % (32.0-36.0); MCV 78 fL (80-95); MPV 10.7 fL (8.0-11.0); Platelet Count 254 10^3/uL (130-400); RBC 5.53 10^6/uL (3.93-5.22); RDW 14.8 % (11.7-14.6); RDW-SD 41.5 fL; WBC 9.15 10^3/uL (4.4-10.8)
[2025-04-22 10:53] LABS: Lipase 39 U/L (<53)
[2025-04-22 10:54] LABS: Magnesium 1.8 mg/dL (1.6-2.6)
[2025-04-22 10:55] LABS: ALT 28 U/L (10-49); AST 21 U/L (<34); Albumin 4.6 g/dL (3.2-5.0); Alkaline Phosphatase 122 U/L (46-116); Anion Gap 10.3 mmol/L (3-11); BUN 12 mg/dL (9-23); Bilirubin, Total 0.6 mg/dL (0.2-1.2); CO2 25.7 mmol/L (20.0-31.0); Calcium 11.3 mg/dL (8.3-10.6); Chloride 104 mmol/L (98-107); Glucose 124 mg/dL (74-106); Potassium 3.9 mmol/L (3.5-5.1); Sodium 140 mmol/L (136-145); Total Protein 7.0 g/dL (5.7-8.2)
[2025-04-22 10:57] LABS: TSH (W/Ref FT4) 1.27 uIU/mL (0.55-4.78)
[2025-04-22 10:58] LABS: COVID-19 PCR Negative (Negative); RSV PCR Negative (Negative)
[2025-04-22 13:31] LABS: Anion Gap 8.7 mmol/L (3-11); BUN 10 mg/dL (9-23); CO2 26.3 mmol/L (20.0-31.0); Calcium 10.4 mg/dL (8.3-10.6); Chloride 108 mmol/L (98-107); Glucose 101 mg/dL (74-106); Potassium 3.9 mmol/L (3.5-5.1); Sodium 143 mmol/L (136-145)
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
--- NOTE | 2025-04-22 15:28 | PDOC.MHCN_ITS ---
Date of service: 04/22/25 Time of Service: 14:00 PHQ-9 Over the last 2 weeks, how often have you been bothered by any of the following problems? 1. Little interest or pleasure in doing things: more than half the days 2. Feeling down, depressed, or hopeless: nearly every day 3. Trouble falling or staying asleep, or sleeping too much: more than half the days 4. Feeling tired or having little energy: nearly every day 5. Poor appetite or overeating: not at all 6. Feeling bad about yourself - or that you are a failure or have let yourself and your family down: more than half the days 7. Trouble concentrating on things, such as reading the newspaper or watching television: not at all 8. Moving or speaking so slowly that other people could have noticed? - Or the opposite - being so fidgety or restless that you have been moving around a lot more than usual: not at all 9. Thoughts that you would be better off or of hurting yourself in some way: not at all Total score: 12 If you checked off any problems, how difficult have these problems made it for you to do your work, take care of things at home, or get along with other people?: very difficult PHQ-9 Results: Positive Source: Developed by Drs. Franko Fish, Helen Evans, Jose Daniel Rahman and colleagues, with an educational davy from [employer]. Suicide Severity Rate CSSRS Have you wished you were or wished you could go to sleep and not wake up?: No Have you actually had any thoughts of killing yourself?: No CSSRS3 Have you ever done anything, started to do anything or prepared to do anything to end your life?: No Screening Score Total Score: 0 Screening: Negative Mental Health Emergency Note Release [facility] release signed:: No Reason for Visit Physical Ailment In the last 2 weeks has the pt presented for ES prior to today?: No Client Information Client is: Adult Outpatient (Client inactive in system) Well Housed: Yes Non Suicidal Self Injury Current: No History: No Safety Risk/Harm to Self or Others Current Ideation to Harm Self or Others: No CALM/Risk Level Does risk to harm exist?: No Risk: N/A Duty to warn indicated: No Asssessment/Mental Status Appearance: Unremarkable Attitude: Cooperative Behavior: Unremarkable Speech: Normal Affect: Normal and Cogruent with mood Mood: Stressed and Depressed Thought process: Unremarkable Hallucinations: No evidence Delusions: No evidence Attention: Unremarkable Perception: Not impaired Orientation: Fully orientated Memory: Intact Insight: Fair Judgement: Fair Neurovegetative Symptoms Sleep: Increase Appetitie: Decrease Interests: Decrease Energy: Decrease Libido: Not applicable Substance Use: Do you use nicotine?: No Additional Issues: Assaultive/Threatening Behavior: No Medical Concerns: Yes Client engaged in active self harm w/weapon: No Threatening to run away: No Child reported abuse/neglect: No Voluntarily presenting for services: Yes Domestic violence is a concern: No Extreme Psychosis or extreme behavior is present: No Impression Client was being seen in the ER at [facility] for an acute medical condition when she made comments alluding to drug use and suicide. ER staff requested a mental health screening. Client acknowledged saying if you won't treat my pain then I'll get something on the corner to help and making references to ending it as a way of coping with her physical discomfort, but assured this investment underwriter that she is not currently feeling suicidal, has no plan, and is not experiencing intent. Client denies NSSI, and denies thoughts of harming others. The client does state that they have a history of depression and anxiety, and that they are currently more depressed than usual since developing issues with hyper parathyroidism. Client is going through testing to see the extent of this condition, and has a consultation coming up on 05/15/2025. Client feels fear that there are currently no answers about her condition and worries that there will be no treatment that will be helpful. She states What if this is just how my body feels now. Client acknowledges that she should be in therapy, but states that she's had a hard time finding someone to see. She declines doing an Intake for [facility] in the ER, but is open to meeting with [facility] to do one tomorrow so that a referral can be made for Ind. Therapy. Client states that she just wants to go home today and get comfortable. This investment underwriter will follow up with client by phone tomorrow to set a time, and she will come to [address] [place] [address] to do an Intake and be referred for therapy. Resources Reosurces reviewed and given:: [id number] and [facility] Plan/Disposition Recommended Disposition: [facility] Services (Client will meet with Emergency Services Team to do Intake and will be referred to Individual Therapy) [facility] Services: Therapy. Plan: Client will discharge to home and will meet with [facility] Emergency Services Team tomorrow for Intake and referral for Individual Therapy. Person reported agreement to plan: Yes Reports/communication Outcome discussed with: ED/Personnel
[2025-04-23 11:08] LABS: Lyme Ab w Rflx to Lyme Confirm Negative (Negative)
[2025-04-24 14:17] LABS: B. miyamotoi PCR Negative (Negative); Babesia divergens/MO-1 Negative (Negative); Ehrlichia muris eauclairensis Negative (Negative)
[2025-04-29 16:14] LABS: 25-Hydroxy D Total 30 ng/mL
== END 2025-04-22 14:49 | disposition home or self-care (01) ==
PROVIDERS: Emergency Provider Physician Assistant; PCP Physician Assistant Medical
DX: E83.52 Hypercalcemia (principal); E21.3 Hyperparathyroidism, unspecified; M54.9 Dorsalgia, unspecified
CPT/HCPCS: 00123; 36415; 80048; 80053; 82306; 83690; 87040; 87637; 87798; 93005; 96127; 96361; 96374; 96375; 99285; 74177; 81003; 82330; 83605; 83735; 84100; 84443; 85025; 86618; 93010; 99284; J0131; J3360; J3490